=== PATIENT | female | born 1990 | race Caucasian/White ===

== ENCOUNTER 2016-09-17 20:16 | Emergency (ER) | payer OTHER ==
[~2016-09-17] VITALS: Ht 170.2 cm; Wt 69.8 kg
[~2016-09-17 20:16] MED LIST: BENZ1TAB2 PO; DPPI400 PO; GABA1CAP5 PO; GDN60 PO; LAMO25TA PO; LORA-741 PO; NAPR1TAB9 PO; NRN600 PO; PRLSR20 PO; PROP20TA67 PO; TOPI100T20 PO; ZOLP5TAB PO
[2016-09-17 20:19] VITALS: Ht 170.2 cm; Wt 69.8 kg
[2016-09-17] MEDS ORDERED: SODIUM CHLORIDE 0.9% 1000ML 1,000 ML IV STA (20:45)
[2016-09-17] MEDS ORDERED: SODIUM CHLORIDE 0.9% 1000ML 1,000 ML IV ONE (20:45)
[2016-09-17] MEDS ORDERED: TOPIRAMATE 100 MG TAB PO STA (20:45)
[2016-09-17] MEDS ORDERED: ZIPRASIDONE 80 MG CAP PO STA (20:45)
--- NOTE | 2016-09-17 20:57 | EMERGENCY ROOM VISIT NOTE ---
History Report prepared by Lo: Wood Dougherty Under the Supervision of: Dr. Dwain Cline M.D. First contact with patient: 20:24 Chief Complaint: MENTAL HEALTH EVALUATION Stated Complaint: SHARP PAIN IN RT SIDE, SUICIDAL THOUGHTS History of Present Illness The patient is a 26 year old female who presents to the Emergency Room for a mental health evaluation. Per the nurse, the patient called the police to have them bring her to the hospital voluntarily. She claims that she tried to overdose 5 days ago, but was cleared at the time. Per the police that is the same police from Sunday's incident, 5 days ago the patient could not get her prescription filled at [facility] because she was too early. She was having a manic episode and did not realize she had her medications at her home. She then took a bunch of sleeping pills. She went to work and threatened to "shoot herself in the face" at work. She also said that if there were not customers there, she would shoot her employee and then shoot herself. The police was called after this and [facility] came with them. She states that she had a seizure from the pills before she went to work. Per the patient, on Sunday she took "a bunch" of two different doses of over the counter sleeping medications called "Simply Sleep." Everything that the police states lines up with her story. She adds that she vomited when she seized as well. She is also complaining of RUQ abdominal pain that is sharp that started 5 days ago. This is not the first time she tried to kill herself. For her prior attempt, she also tried to use sleeping pills. She says that she is tired and sick of life. She is also angry and depressed about everyone and everything. The patient lives alone and cries a lot when she is at home. She does not use alcohol or drugs. She has not tried to hurt herself since 5 days ago. The reason she waited this long to go to the ED is because she has had problems with [place] in the past. She does not know why she came to the hospital, but she is requesting mental assistance. She is currently feeling dizzy. She denies any other problems. There is no chance she is . She is on the Depo shot. Source of History: patient, police, nursing staff Onset: 5 days ago Position: other (global) Symptom Intensity: severe Quality: other (Mental Health Evaluation) Timing: constant Associated Symptoms: + abdominal pain Note: She denies any other symptoms. Review of Systems See HPI for pertinent positives & negatives. A total of 10 systems reviewed and were otherwise negative. Past Medical & Surgical Medical Problems: (1) Anxiety (2) Asperger's disorder (3) Bipolar disorder (4) Depression Old medical records were reviewed. Nurse's notes were reviewed and I agree with. Family History Seizures Social History Smoking Status: Never Smoker Alcohol Use: occasionally Drug Use: marijuana Marital Status: in relationship Housing Status: lives with significant other Occupation Status: unemployed Current/Historical Medications Scheduled Biotin (Biotin), 1 TAB PO QAM Gabapentin (Neurontin), 400 MG PO BID @ AM AND NOON Gabapentin (Gabapentin), 600 MG PO HS Lamotrigine (Lamictal), 100 MG PO QAM Lorazepam (Ativan), 0.5 MG PO TID @ AM, NOON, 1700 Medroxyprogesterone Acetate (Depo-Provera), 1 DOSE PO [id number] Propranolol Hcl (Propranolol Hcl), 1 TAB PO TID Topiramate (Topamax), 100 MG PO BID Ziprasidone Hcl (Geodon), 160 MG PO HS Allergies Coded Allergies: Fluoxetine (Verified Allergy, Unknown, ALLERGIC REACTION, 09/17/16) Citalopram (Verified Adverse Reaction, Unknown, UNKNOWN, 09/17/16) Physical Exam Vital Signs Date Time Temp Pulse Resp B/P Pulse Ox O2 Delivery O2 Flow Rate FiO2 09/17/16 22:07 74 18 121/74 99 Room Air 09/17/16 20:19 36.4 84 16 117/77 100 Room Air Physical Exam General: Anxious appearing young female. Well developed well nourished in no acute distress, breathing comfortably on room air. Normal speech HEENT: Normal cephalic atraumatic. Pupils are equal round and reactive to light. Sclerae anicteric. Extraocular movements are intact. Oropharynx is pink with moist mucous membranes. No swelling of the mouth lips or tongue. Neck: Supple with a midline trachea. No meningeal signs or stiffness, no JVD or bruits. No Stridor. Chest: Clear to auscultation bilaterally. No wheezes or rhonchi. No increased work of breathing. Heart: regular rate and rhythm. Abdomen: Soft nontender, nondistended without rebound guarding or rigidity. Extremities: No cyanosis clubbing or edema. No calf tenderness or assymetry Spine/Back. Non tender to palpation. No CVA tenderness Skin: Good turgor without rashes. Neurologic exam: Cranial nerves two through 12 are intact. Motor and sensation are intact and symmetrical throughout. Psych: Normal thought process, intermittently appears angry, complains of suicidal ideation. Medical Decision & Procedures Laboratory Results 09/17/16 21:00 Red Blood Count 3.84, Mean Corpuscular Volume 90.1, Mean Corpuscular Hemoglobin 31.3, Mean Corpuscular Hemoglobin Concent 34.7, Mean Platelet Volume 10.2, Neutrophils (%) (Auto) 54.6, Lymphocytes (%) (Auto) 36.7, Monocytes (%) (Auto) 4.6, Eosinophils (%) (Auto) 3.4, Basophils (%) (Auto) 0.5, Neutrophils # (Auto) 3.10, Lymphocytes # (Auto) 2.08, Monocytes # (Auto) 0.26, Eosinophils # (Auto) 0.19, Basophils # (Auto) 0.03 09/17/16 21:00 Test 09/17/16 21:00 09/17/16 21:10 White Blood Count 5.67 K/uL (4.8-10.8) Red Blood Count 3.84 M/uL (4.2-5.4) Hemoglobin 12.0 g/dL (12.0-16.0) Hematocrit 34.6 % (37-47) Mean Corpuscular Volume 90.1 fL (80-100) Mean Corpuscular Hemoglobin 31.3 pg (25-34) Mean Corpuscular Hemoglobin Concent 34.7 g/dl (32-36) Platelet Count 205 K/uL (130-400) Mean Platelet Volume 10.2 fL (7.4-10.4) Neutrophils (%) (Auto) 54.6 % Lymphocytes (%) (Auto) 36.7 % Monocytes (%) (Auto) 4.6 % Eosinophils (%) (Auto) 3.4 % Basophils (%) (Auto) 0.5 % Neutrophils # (Auto) 3.10 K/uL (1.4-6.5) Lymphocytes # (Auto) 2.08 K/uL (1.2-3.4) Monocytes # (Auto) 0.26 K/uL (0.11-0.59) Eosinophils # (Auto) 0.19 K/uL (0-0.5) Basophils # (Auto) 0.03 K/uL (0-0.2) RDW Standard Deviation 43.5 fL (36.4-46.3) RDW Coefficient of Variation 13.4 % (11.5-14.5) Immature Granulocyte % (Auto) 0.2 % Immature Granulocyte # (Auto) 0.01 K/uL (0.00-0.02) Prothrombin Time 10.7 SECONDS (9.0-12.0) Prothromb Time International Ratio 1.0 (0.9-1.1) Activated Partial Thromboplast Time 25.9 SECONDS (21.0-31.0) Partial Thromboplastin Ratio 1.0 Anion Gap 11.0 mmol/L (3-11) Est Creatinine Clear Calc Drug Dose 74.1 ml/min Estimated GFR () 79.1 Estimated GFR (Non- 68.3 BUN/Creatinine Ratio 6.9 (10-20) Calcium Level 9.2 mg/dl (8.5-10.1) Total Bilirubin 0.3 mg/dl (0.2-1) Direct Bilirubin 0.1 mg/dl (0-0.2) Aspartate Amino Transf (AST/SGOT) 49 U/L (15-37) Alanine Aminotransferase (ALT/SGPT) 56 U/L (12-78) Alkaline Phosphatase 80 U/L (45-117) Total Protein 7.0 gm/dl (6.4-8.2) Albumin 4.1 gm/dl (3.4-5.0) Lipase 112 U/L (73-393) Human Chorionic Gonadotropin, Qual NEG (NEG) Salicylates Level < 1.7 mg/dl (2.8-20) Acetaminophen Level < 2 ug/ml (10-30) Ethyl Alcohol mg/dL < 3.0 mg/dl (0-3) Urine Opiates Screen NEG (NEG) Urine Methadone, Qualitative NEG (NEG) Urine Barbiturates NEG (NEG) Urine Phencyclidine (PCP) Level NEG (NEG) Ur Amphetamine/Methamphetamine NEG (NEG) MDMA (Ecstasy) Screen NEG (NEG) Urine Benzodiazepines Screen NEG (NEG) Urine Cocaine Metabolite NEG (NEG) Urine Marijuana (THC) NEG (NEG) Laboratory studies as stated above per my review. Medications Administered Medications (Trade) Dose Ordered Sig/Janie Route Start Time Stop Time Status Last Admin Dose Admin Sodium Chloride 1,000 ml @ 999 mls/hr Q1H1M STAT IV 09/17/16 20:45 09/17/16 21:45 DC 09/17/16 21:03 999 MLS/HR Sodium Chloride (Nss 1000ml) 1,000 ml @ 150 mls/hr Q6H40M ONCE IV 09/17/16 20:45 09/18/16 03:24 09/17/16 23:03 150 MLS/HR Topiramate (Topamax Tab) 100 mg ONE STAT PO 09/17/16 20:45 09/17/16 20:50 DC 09/17/16 21:00 100 MG Ziprasidone (Geodon Cap) 160 mg ONE STAT PO 09/17/16 20:45 09/17/16 20:50 DC 09/17/16 21:02 160 MG Lorazepam (Ativan Tab) 0.5 mg NOW STAT SL 09/17/16 22:54 09/17/16 22:56 DC 09/17/16 23:00 0.5 MG ED Course 2023: Past medical records reviewed. The patient was evaluated in room A7, and a complete history and physical examination were performed. 2044: Ordered Ziprasidone 160 mg PO, Topamax Tab 100 mg PO, Sodium Chloride 1000 ml @ 150 mls/hr IV, Sodium Chloride 1000 ml @ 999 mls/hr IV. 5: I reassessed the patient at this time. She is much more calm. She is getting food. 2147: I spoke with central command about finding a bed somewhere for the patient. 0: The patient is sleeping comfortably. [facility] is about to assess her. 2250: I was notified that the patient's chest feels like it is tightening up. She is also feeling anxious. 4: Ordered Ativan Tab 0.5 mg SL 2255: I evaluated the patient and ordered her Ativan. She informed me that she normally takes 0.5 mg. 2358: I was informed that the chairman and chief executive officer filled out a 302 statement incorrectly. He made it a petition. The patient has been voluntary her entire stay. I denied the petition because she has been voluntary. [facility] is now reevaluating the patient. 0030: The patient was signed out to Dr. Walker. Medical Decision Differentials include, but are not limited to; suicidal ideation, depression, overdose, infection, electrolyte or metabolic abnormality. This patient comes in as described above. She comes in voluntarily after feeling depressed and having anger and she had suicidal ideations earlier this week. She says on Sunday she took 2 boxes of sleeping pills and may had a seizure. The pill she took was called sleep ezez and is Benadryl. She has had some mild minimal abdominal pain since then she denies taking anything since then she's had no vomiting or nausea. She has not been drinking alcohol and she does not use drugs. she's been taking her psychiatric medicine as directed she tells me. IV access established and multiple blood testing was obtained. She was reassessed frequently. She is resting comfortably and did receive her ` nighttime psych meds. She has nothing to suggest an acute toxicologic process. Her Tylenol level was 0 as well as she had normal LFTs and normal coags and she is approximately 5 days out. This point there is nothing to suggest significant Tylenol/acetaminophen toxicity. She was medically cleared and was seen by [facility]. When they came and they did evaluate her but refused to place her as they were concerned about the 302 petition. The patient came in voluntarily and the chairman and chief executive officer asked if he could write a statement in case she changed her mind. The way he filled it out it wasn't a statement but rather a warrant. In light of this, I denied the warrant as she is voluntary at this point and wants to come and voluntarily. If for some reason she decided to go home, [facility] can fill out another warrant if necessary or needed. Again the patient is voluntarily and will be further treated and evaluated by [facility] for inpatient treatment and evaluation. She'll be signed out at shift change to Dr. Singh. Impression Primary Impression: Depression Additional Impressions: Anxiety Suicidal ideation Scribe Attestation The scribe's documentation has been prepared under my direction and personally reviewed by me in its entirety. I confirm that the note above accurately reflects all work, treatment, procedures, and medical decision making performed by me. Departure Information Dispostion Still a Patient Referrals Rhianna Gonzales C.R.N.P. (PCP) Patient Instructions My [facility] Problem Qualifiers
[2016-09-17 21:21] LABS: BASO % 0.5 %; BASO ABS # 0.03 K/uL (0-0.2); COMPLETE YES; EOS % 3.4 %; HEMATOCRIT 34.6 % (37-47); IG% 0.2 %; LYMPH % 36.7 %; LYMPH ABS # 2.08 K/uL (1.2-3.4); MEAN CELL VOLUME 90.1 fL (80-100); MEAN CORPUSCULAR HEMOGLOBIN 31.3 pg (25-34); MEAN CORPUSCULAR HGB CONC 34.7 g/dl (32-36); MEAN PLATELET VOLUME 10.2 fL (7.4-10.4); MONO % 4.6 %; NEUT % 54.6 %; PLATELET COUNT 205 K/uL (130-400); RED BLOOD COUNT 3.84 M/uL (4.2-5.4); WHITE BLOOD COUNT 5.67 K/uL (4.8-10.8)
[2016-09-17] MEDS ORDERED: BIOT50006 PO (21:23)
[2016-09-17] MEDS ORDERED: GDN/80 PO (21:23)
[2016-09-17] MEDS ORDERED: LAMO100T16 PO (21:23)
[2016-09-17] MEDS ORDERED: PROP40TA5 PO (21:23)
[2016-09-17 21:30] LABS: PROTHROMBIN TIME (PATIENT) 10.7 SECONDS (9.0-12.0)
[2016-09-17 21:37] LABS: ACETAMINOPHEN < 2 ug/ml (10-30); BUN/CREATININE RATIO 6.9 (10-20); CALCIUM 9.2 mg/dl (8.5-10.1); CREATININE 1.1 mg/dl (0.60-1.20); POTASSIUM 3.7 mmol/L (3.5-5.1)
[2016-09-17 21:39] LABS: PREG INTERNAL POSITIVE QC POS CONTROL LINE
[2016-09-17 21:40] LABS: PREG INTERNAL NEGATIVE QC NEG CLEAR BACKGROUND
[2016-09-17 22:02] LABS: BENZODIAZEPINE, URINE NEG (NEG); COCAINE,URINE NEG (NEG); PHENCYCLIDINE, URINE NEG (NEG)
[2016-09-17] MEDS ORDERED: LORAZEPAM 0.5 MG TAB SL STA (22:54)
[2016-09-18] MEDS ORDERED: NURSING VERBAL MED ORDER ONE (05:00)
[2016-09-18] MEDS ORDERED: PROPRANOLOL HCL 20 MG TAB PO ONE (08:00)
[2016-09-18] MEDS ORDERED: LORAZEPAM 0.5 MG TAB PO ONE (08:00)
[2016-09-18] MEDS ORDERED: GABAPENTIN 400 MG CAP PO ONE (08:00)
[2016-09-18] MEDS ORDERED: TOPIRAMATE 100 MG TAB PO ONE (08:00)
[2016-09-18] MEDS ORDERED: AZITHROMYCIN 250 MG TAB PO STA (11:29)
[2016-09-18] MEDS ORDERED: CEFTRIAXONE SOD 350MG/ML 1 GM VIAL IM STA (11:29)
--- NOTE | 2016-09-18 11:39 | EMERGENCY ROOM VISIT NOTE ---
ED Visit Note First contact with patient: 11:37 I received this patient at change of shift signout. The patient was previously medically cleared in the emergency department. She presented to the emergency department for a mental health evaluation. The patient had a bedsore initially which was postponed overnight. The bed search has been resume this morning. [facility] is at the bedside doing a bed search at this time. Currently the patient is a 201 voluntary admission. I was asked to evaluate the patient for a rash. The patient states that she has a rash on her right vaginal area. The patient states that she has had a rash in this area before but denies that it is sexually related. The rash has grouped vesicles that have the appearance of a herpetic infection. Cultures were obtained. I offered to do a full pelvic exam on the patient's do cervical cultures as well but she refused. She was treated for STD coverage for cervicitis as well as started on antivirals for herpes. The patient was told to follow-up the culture results. The patient was accepted at [facility] for mental health inpatient treatment. Transfer paperwork was filled out by me.
[2016-09-18] MEDS ORDERED: VALA1TAB2 PO (11:41)
[2016-09-18] MEDS ORDERED: GABAPENTIN 400 MG CAP PO STA (11:49)
[2016-09-18] MEDS ORDERED: LORAZEPAM 0.5 MG TAB PO STA (11:49)
[2016-09-18] MEDS ORDERED: PROPRANOLOL HCL 10 MG TAB PO ONE (12:00)
[2016-09-18 13:43] VITALS: BP 122/66; PULSE 76; O2SAT 99
[2016-09-20 11:30] LABS: HERPES SIMPLEX CULT SOURCE GENITAL-RT VAGINAL A; HERPES SIMPLEX VIRUS CULT ISOLATED (NOT ISOLATED)
[2016-09-21 07:17] LABS: HSVTYPE2REFLEX ONLY!DON'T ORDR ISOLATED (NOT ISOLATED)
== END 2016-09-18 13:43 | disposition home or self-care (01) ==
LOC: C.EDB 20:17 → C.EDA 09-18 13:43
DX: F32.9 Major depressive disorder, single episode, unspecified (principal); F41.9 Anxiety disorder, unspecified; R45.851 Suicidal ideations; F31.9 Bipolar disorder, unspecified; R21 Rash and other nonspecific skin eruption; N72 Inflammatory disease of cervix uteri; B00.9 Herpesviral infection, unspecified; Z79.899 Other long term (current) drug therapy

== ENCOUNTER 2016-09-27 13:17 | Emergency (ER) | payer OTHER ==
[~2016-09-27] VITALS: Ht 170.2 cm; Wt 70.0 kg
[~2016-09-27 13:17] MED LIST changes: -BENZ1TAB2 PO; +BIOT50006 PO; +GDN/80 PO; -GDN60 PO; +LAMO100T16 PO; -LAMO25TA PO; -NAPR1TAB9 PO; -PRLSR20 PO; -PROP20TA67 PO; +PROP40TA5 PO; +VALA1TAB2 PO; -ZOLP5TAB PO
[2016-09-27 13:21] VITALS: TEMP 36.6; Ht 170.2 cm; Wt 70.0 kg
[2016-09-27 14:49] LABS: BASO % 0.4 %; BASO ABS # 0.03 K/uL (0-0.2); COMPLETE YES; EOS % 1.9 %; HEMATOCRIT 36.6 % (37-47); IG% 0.1 %; LYMPH % 24.8 %; LYMPH ABS # 1.86 K/uL (1.2-3.4); MEAN CELL VOLUME 89.9 fL (80-100); MEAN CORPUSCULAR HEMOGLOBIN 31.4 pg (25-34); MEAN PLATELET VOLUME 9.6 fL (7.4-10.4); MONO % 4.3 %; NEUT % 68.5 %; PLATELET COUNT 253 K/uL (130-400); RED BLOOD COUNT 4.07 M/uL (4.2-5.4); WHITE BLOOD COUNT 7.49 K/uL (4.8-10.8)
[2016-09-27 15:08] LABS: BUN/CREATININE RATIO 6.7 (10-20); CALCIUM 9.4 mg/dl (8.5-10.1); CREATININE 1.2 mg/dl (0.60-1.20); POTASSIUM 3.3 mmol/L (3.5-5.1)
[2016-09-27 15:09] LABS: ACETAMINOPHEN < 2 ug/ml (10-30)
[2016-09-27 15:13] LABS: URINE APPEARANCE CLEAR (CLEAR); URINE BILIRUBIN NEG (NEG); URINE COLOR YELLOW; URINE EPITHELIAL CELL AUTO >30 /lpf (0-5); URINE NITRITE NEG (NEG); URINE PH 5.5 (4.5-7.5); URINE SPECIFIC GRAVITY 1.008 (1.000-1.030); UROBILINOGEN NEG (NEG); ZZUR CULT IF INDIC CLEAN CATCH NO
[2016-09-27 15:18] LABS: ALB/GLOB RATIO 1.3 (0.9-2); THYROID STIMULATING HORMONE 1.68 uIu/ml (0.300-4.500)
[2016-09-27 15:23] LABS: MANUAL MICROSCOPIC REQUIRED? NO; REVIEW REQ? NO
[2016-09-27] MEDS ORDERED: LURA1TAB3 PO (15:27)
[2016-09-27] MEDS ORDERED: LORA1TAB13 PO (15:27)
[2016-09-27] MEDS ORDERED: [UNRECOGNIZED DRUG - CODE] PO (15:27)
[2016-09-27] MEDS ORDERED: LAMO200T38 PO (15:27)
[2016-09-27 15:47] LABS: BENZODIAZEPINE, URINE NEG (NEG); COCAINE,URINE NEG (NEG); PHENCYCLIDINE, URINE NEG (NEG)
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
[2016-09-27] MEDS ORDERED: LORAZEPAM 1 MG TAB PO SCH (17:00)
[2016-09-27] MEDS ORDERED: PROPRANOLOL HCL 20 MG TAB PO ONE (17:00)
[2016-09-27] MEDS ORDERED: LURASIDONE HCL 40 MG TAB PO ONE (17:00)
[2016-09-27] MEDS ORDERED: GABAPENTIN 600 MG TAB PO ONE (17:00)
[2016-09-27] MEDS ORDERED: TOPIRAMATE 100 MG TAB PO STA (20:29)
[2016-09-27] MEDS ORDERED: ZIPRASIDONE 20 MG CAP PO STA (20:29)
[2016-09-27] MEDS ORDERED: ZIPRASIDONE 80 MG CAP PO STA (20:29)
[2016-09-27 21:37] VITALS: BP 107/72; PULSE 104; O2SAT 96
[2016-10-04 17:40] LABS: SYNTHETIC CANNABINOIDS QL URIN NEGATIVE (Negative)
== END 2016-09-27 21:15 ==
LOC: C.EDB 13:18 → C.EDA 21:15
DX: R45.851 Suicidal ideations (principal); F31.9 Bipolar disorder, unspecified; F41.9 Anxiety disorder, unspecified; Z82.0 Family history of epilepsy and other diseases of the nervous system; Z79.899 Other long term (current) drug therapy

== ENCOUNTER → 2017-01-19 | Outpatient (CLI) | payer OTHER ==
[~2017-01-19] MED LIST changes: -GDN/80 PO; -LAMO100T16 PO; +LAMO200T38 PO; -LORA-741 PO; +LORA1TAB13 PO; +LURA1TAB3 PO; -VALA1TAB2 PO; +[UNRECOGNIZED DRUG - CODE] PO
[2017-01-19 16:50] LABS: BASO % 0.9 %; BASO ABS # 0.04 K/uL (0-0.2); COMPLETE YES; EOS % 2.9 %; HEMATOCRIT 34.8 % (37-47); LYMPH % 36.8 %; LYMPH ABS # 1.65 K/uL (1.2-3.4); MEAN CELL VOLUME 88.5 fL (80-100); MEAN CORPUSCULAR HEMOGLOBIN 30.3 pg (25-34); MEAN CORPUSCULAR HGB CONC 34.2 g/dl (32-36); MEAN PLATELET VOLUME 10.5 fL (7.4-10.4); MONO % 7.6 %; NEUT % 51.8 %; PLATELET COUNT 191 K/uL (130-400); RED BLOOD COUNT 3.93 M/uL (4.2-5.4); WHITE BLOOD COUNT 4.48 K/uL (4.8-10.8)
[2017-01-19 17:04] LABS: ALB/GLOB RATIO 1.5 (0.9-2); ALT/SGPT 19 U/L (12-78); AST/SGOT 10 U/L (15-37); BLOOD UREA NITROGEN 13 mg/dl (7-18); BUN/CREATININE RATIO 9.6 (10-20); CALCIUM 9.2 mg/dl (8.5-10.1); CARBON DIOXIDE 22 mmol/L (21-32); CHLORIDE 112 mmol/L (98-107); GLUCOSE 61 mg/dl (70-99); POTASSIUM 3.5 mmol/L (3.5-5.1); SODIUM 144 mmol/L (136-145)
[2017-01-19 17:14] LABS: ALKALINE PHOSPHATASE 77 U/L (45-117)
[2017-01-22 15:39] LABS: HSV TYPE 1 DNA Not Detected (Not Detected); HSV TYPE 1&2 DNA SOURCE Plasma; HSV TYPE 2 DNA Not Detected (Not Detected)
== END | disposition home or self-care (01) ==
LOC: C.LABBC 13:30
PROVIDERS: ATTEND Nurse Practitioner Adult Health
DX: Z00.00 Encounter for general adult medical examination without abnormal findings (principal); Z20.2 Contact with and (suspected) exposure to infections with a predominantly sexual mode of transmission; A60.00 Herpesviral infection of urogenital system, unspecified; R45.86 Emotional lability

== ENCOUNTER → 2017-02-28 | Outpatient (CLI) | payer OTHER | END | disposition home or self-care (01) | LOC: C.PAPS 14:10 | PROVIDERS: ATTEND Obstetrics & Gynecology | DX: Z12.4 Encounter for screening for malignant neoplasm of cervix (principal); Z11.3 Encounter for screening for infections with a predominantly sexual mode of transmission ==

== ENCOUNTER → 2017-02-28 | Outpatient (CLI) | payer OTHER ==
[2017-03-03 03:02] LABS: CHLAMYDIA TRACH RNA*** NOT DETECTED (NOT DETECTED); GC (NEIS GONORRHOEAE)RNA** NOT DETECTED (NOT DETECTED)
== END | disposition home or self-care (01) ==
LOC: C.LABSPEC 14:19
PROVIDERS: ATTEND Obstetrics & Gynecology
DX: Z11.3 Encounter for screening for infections with a predominantly sexual mode of transmission (principal)

== ENCOUNTER → 2017-07-26 | Outpatient (CLI) | payer OTHER ==
[~2017-07-26] MED LIST changes: +LAMO200T35 PO; -LAMO200T38 PO
== END | disposition home or self-care (01) ==
LOC: C.LABSPEC 17:39
PROVIDERS: ATTEND Nurse Practitioner Adult Health
DX: R59.9 Enlarged lymph nodes, unspecified (principal)

== ENCOUNTER 2022-08-19 17:51 | Observation (INO) ==
--- NOTE | 2022-08-19 18:11 | Emergency Department Note ---
Impression & Plan Depression with suicidal ideation, Overdose by ingestion, Abnormal EKG, ZACK (acute kidney injury) ED Provider Note NAME: MORAIMA KELLY AGE: 32 SEX: F : 1990 ARRIVES VIA: Ambulance INFORMANT: Patient, ED PROVIDER(S): Devaughn Meeks DO CHIEF COMPLAINT: Mental health evaluation HPI: The patient is a 32-year-old female who presented to the emergency department for an evaluation of mental health issues. The patient states that she was talking to a boy that she was looking to make her significant other. She could not get a hold of the other person last evening. She became very desperate and wanted to get his attention. She admits to taking medication in an attempt to overdose to get his attention. She states that she took 30 tablets of Paxil at 8 PM last evening. She states it was 40 mg formulation. She states that she took all the tablets at 1 time. She states that she did not take any other medications with the Paxil. She states that she did not take any alcohol or Tylenol. She had multiple episodes of emesis after this but has not had an episode of emesis since last evening at around 10 PM. Her parent found out about this overdose attempt and the patient arrived via police because her family member who lived in [place] called 911. The patient states that she was only trying to get this other person's attention and denies any suicidal ideation at this time. ROS: See above HPI for pertinent positives & negatives. A total of 10 systems reviewed and were otherwise negative. PAST MEDICAL HISTORY: See Below PAST SURGICAL HISTORY: See Below FAMILY HISTORY: See Below SOCIAL HISTORY: See Below HOME MEDICATIONS: See Below ALLERGIES: See Below VITALS: See Below PHYSICAL EXAMINATION: GENERAL: Patient is awake alert in no acute distress patient is resting comfortably and showing no signs of anxiety EYES: The conjunctivae are clear. The pupils are round and reactive. EARS, NOSE, MOUTH AND THROAT: The nose is without any evidence of any deformity. Mucous membranes are moist. Tongue is midline. NECK: The neck is nontender and supple. RESPIRATORY: Normal respiratory effort is noted there is no evidence of wheezing rhonchi or rales CARDIOVASCULAR: Regular rate and rhythm noted there no murmurs rubs or gallops normal S1 normal S2. GASTROINTESTINAL: The abdomen is soft. Abdomen is nontender. MUSCULOSKELETAL/EXTREMITIES: There is no evidence of gross deformity full range of motion is noted in the hips and shoulders. SKIN: There is no obvious evidence of any rash. There are no petechiae, pallor or cyanosis noted. NEUROLOGIC: Patient is awake alert and oriented x3 strength is symmetric patellar reflexes are 2+ bilaterally PSYCH: The patient makes good eye contact most of evaluation. She is currently denying any suicidal homicidal ideation. MEDICAL DECISION MAKING: The patient is a 32-year-old female who presented to the emergency department for an evaluation of mental health issues. The patient took a significant overdose of Paxil last evening. The patient was awake and alert. It sounds though she made this gesture known to family as well as a potential significant other. For this reason 911 was called and the patient was brought to the emergency department for formal mental health evaluation. Initially the patient was agreeable to evaluation but when I discussed the patient's laboratory studies with her and recommended that she may require inpatient management medically as well as from a mental health standpoint she became very angry. She did not wish to stay in the hospital. She did not want to stay for a mental health evaluation any further. 302 petition was filled out by the mental health delegate who initially evaluated the patient. Given the current situation I feel the patient may be a significant threat to herself and I have decided to uphold the 302 petition. The patient was also found to have an acute kidney injury as well as an abnormal EKG and tachycardia while she was in the emergency department. I do not feel she would be a good candidate for mental health inpatient stay at this time because she may still require further medical clearance. For this reason I will discuss her case with the on-call [facility] hospitalist. Triage Nursing notes reviewed. Prior medical records reviewed Vital Signs: reviewed and remarkable for tachycardia and hypotension. Differential diagnosis: Overdose, toxicologic, infection, hypoglycemia, electrolyte abnormalities, cardiac sources, intracerebral event, neurologic, trauma, as well as other pathologies. ER treatment provided: See below Diagnostics interpreted by me: ECG: EKG was obtained in the emergency department. My interpretation is normal sinus rhythm at 83 bpm. There is no ectopy. Diffuse ST depression with T wave abnormalities were noted. This was compared to a tracing from July 24, 2020. The EKG changes are new compared to the previous tracing. A second EKG was obtained in the emergency department. My interpretation is normal sinus rhythm at 71 bpm. There is no ectopy. Continuation of the previously noted ST depression with T wave abnormality was appreciated in the anterior inferior and low lateral leads. Cardiac Monitoring: An order was placed for continuous cardiac monitoring. The monitor shows a rate of 104 bpm with sinus tachycardia. Laboratory studies: As stated above and show below. Imaging studies: See below. Radiographic imaging was reviewed by myself Consultation(s): I discussed this patient's condition with the Poison Control [facility]. We reviewed the patient's laboratory and EKG findings. I discussed this case with Dr. Bell who is on-call for the [facility] hospitalist group. 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 Denies family history of Ovarian cancer Prostate cancer Myocardial infarction Breast cancer Colorectal cancer Social History Smoking Status: Never smoker Second Hand Exposure: No; Hx Alcohol Use: No Hx Substance Use: No Preferred Language: Ghanaian Communication Ability: Effective Visual Impairment: No Limitations Hearing Ability: Normal Neon Electrician Required: No marital status: Single Current Living Situation: Alone current occupational status: employed current occupation: [id number] Feels Safe at Home: Yes Childhood Exposure to Second-Hand Smoke: No caffeine: Yes during the past year weight has: increased > 10 lbs Dental Care, Regularly: Yes Physical Activity Frequency: Does not Exercise Seatbelt Use: always Sunscreen Use: Yes Do you think of yourself as: straight/heterosexual Assistive Devices: None Allergies Allergies Allergy/AdvReac Type Severity Reaction Status Date / Time citalopram Allergy Severe Swollen Verified 08/19/22 20:30 tongue fluoxetine AdvReac Intermediate SEROTONIN Verified 08/19/22 20:30 SYNDROME Home Meds Home Medications Medication Instructions Recorded Confirmed chlorpromazine 25 mg tablet 25 mg PO BID 02/05/19 08/19/22 lamotrigine 100 mg tablet 200 mg PO QAM 02/13/19 08/19/22 (Lamictal) benztropine 0.5 mg tablet 0.5 mg PO BID PRN TWITCHING/JERKING 08/19/22 08/19/22 chlorpromazine 50 mg tablet 50 mg PO QID 08/19/22 08/19/22 paroxetine HCl 10 mg tablet 10 mg PO DAILY 08/19/22 08/19/22 paroxetine HCl 40 mg tablet (Paxil) 40 mg PO DAILY 08/19/22 08/19/22 topiramate 100 mg tablet 100 mg PO BID 08/19/22 08/19/22 topiramate 50 mg tablet 50 mg PO BID 08/19/22 08/19/22 Previous Rx's Medication Instructions Recorded medroxyprogesterone 150 mg/mL 150 mg IM Q3MO #1 mL 03/30/22 intramuscular suspension erenumab-aooe 140 mg/mL 140 mg subcut MONTHLY 30 days #1 mL 07/12/22 subcutaneous auto-injector (Aimovig Autoinjector) Results & Data (ED) Vital Signs Vital Signs - 24 hr 08/19/22 17:51 08/19/22 19:00 08/19/22 19:30 Temperature 37.1 C Temperature Source Oral Pulse Rate 104 H 100 H 73 Respiratory Rate 20 31 H 18 Respiratory Effort / Characteristics Non-Labored Respiratory Depth Normal Blood Pressure 100/75 Blood Pressure Mean 83 Pulse Oximetry 96 Oxygen Delivery Method Room Air Sepsis Recent Fever Within 48 Hours No Sepsis New/Unexplained Change in Mental Status N/A Sepsis Action Taken by Nursing No Action Required 08/19/22 20:11 08/19/22 20:12 08/19/22 20:12 Temperature Temperature Source Pulse Rate 94 H 84 Respiratory Rate 16 Respiratory Effort / Characteristics Respiratory Depth Blood Pressure 115/73 Blood Pressure Mean 87 Pulse Oximetry Oxygen Delivery Method Sepsis Recent Fever Within 48 Hours Sepsis New/Unexplained Change in Mental Status Sepsis Action Taken by Nursing 08/19/22 20:30 08/19/22 21:00 08/19/22 21:14 Temperature Temperature Source Pulse Rate 78 79 Respiratory Rate 15 27 H Respiratory Effort / Characteristics Respiratory Depth Blood Pressure 98/55 L Blood Pressure Mean 69 Pulse Oximetry Oxygen Delivery Method Sepsis Recent Fever Within 48 Hours Sepsis New/Unexplained Change in Mental Status Sepsis Action Taken by Nursing 08/19/22 21:14 08/19/22 21:30 08/19/22 21:30 Temperature Temperature Source Pulse Rate 75 77 Respiratory Rate 16 16 Respiratory Effort / Characteristics Respiratory Depth Blood Pressure 106/71 Blood Pressure Mean 82 Pulse Oximetry Oxygen Delivery Method Sepsis Recent Fever Within 48 Hours Sepsis New/Unexplained Change in Mental Status Sepsis Action Taken by Nursing 08/19/22 22:00 08/19/22 22:00 08/19/22 22:18 Temperature Temperature Source Pulse Rate 79 Respiratory Rate 15 Respiratory Effort / Characteristics Respiratory Depth Blood Pressure 99/72 L 103/56 L Blood Pressure Mean 81 71 Pulse Oximetry Oxygen Delivery Method Sepsis Recent Fever Within 48 Hours Sepsis New/Unexplained Change in Mental Status Sepsis Action Taken by Nursing 08/19/22 22:18 Temperature Temperature Source Pulse Rate 104 H Respiratory Rate 17 Respiratory Effort / Characteristics Respiratory Depth Blood Pressure Blood Pressure Mean Pulse Oximetry Oxygen Delivery Method Sepsis Recent Fever Within 48 Hours Sepsis New/Unexplained Change in Mental Status Sepsis Action Taken by Jail Medications Current Medication List: was personally reviewed by me Laboratory Data Attestation: I reviewed the patient's lab results. 08/19/22 18:28 08/19/22 18:28 Lab Results 08/19/22 08/19/22 08/19/22 Range/Units 18:08 18:28 18:28 WBC 8.86 (4.8-10.8) K/ul RBC 3.88 L (4.20-5.40) M/uL Hgb 12.0 (12.0-16.0) g/dl Hct 35.2 L (37.0-47.0) % MCV 90.7 (80.0-100.0) fL MCH 30.9 (25.0-34.0) pg MCHC 34.1 (32.0-36.0) g/dL RDW Std Deviation 43.0 (36.4-46.3) fL RDW Coeff of Sil 13.2 (11.5-14.5) % Plt Count 271 (130-400) K/uL MPV 10.2 (9.4-12.4) fL Immature Gran % (Auto) 0.2 % Neut % (Auto) 78.9 % Lymph % (Auto) 12.8 % [place] % (Auto) 6.2 % Eos % (Auto) 1.2 % Baso % (Auto) 0.7 % Neut # (Auto) 6.99 H (1.40-6.50) K/uL Lymph # (Auto) 1.13 L (1.2-3.4) K/uL [place] # (Auto) 0.55 (0.11-0.59) K/uL Eos # (Auto) 0.11 (0-0.50) K/uL Baso # (Auto) 0.06 (0-0.2) K/uL Immature Gran # (Auto) 0.02 (0.01-0.20) K/uL D-Dimer (0-500) ug/L FEU VBG pH (7.36-7.41) VBG pCO2 (38-50) mmHg VBG pO2 mmHg VBG HCO3 mmol/L VBG O2 Saturation % VBG Base Excess mEq/L Sodium 138 (136-145) mmol/L Potassium 3.7 (3.5-5.1) mmol/L Chloride 109 H (98-107) mmol/L Carbon Dioxide 16 L (21-32) mmol/L Anion Gap 13 H (3-11) BUN 9 (6-23) mg/dl Creatinine 1.69 H (0.6-1.2) mg/dl Est Cr Clr Drug Dosing Not Reportable Est GFR ( Amer) 45.1 ml/min Est GFR (Non-Af Amer) 38.9 ml/min BUN/Creatinine Ratio 5.3 L (10-20) Glucose 83 (70-99(Fasting)) mg/dl Calcium 9.9 (8.5-10.1) mg/dl Magnesium 1.8 (1.7-2.4) mg/dl Total Bilirubin 0.5 (0.2-1.0) mg/dl AST 18 (13-39) U/L ALT 17 (7-52) U/L Alkaline Phosphatase 104 (34-104) U/L Troponin I High Sens 3.6 (0-14) pg/ml Total Protein 8.0 (6.0-8.3) gm/dl Albumin 5.0 (3.4-5.0) gm/dl Globulin 3.0 (2.5-4.0) gm/dl Albumin/Globulin Ratio 1.7 (0.9-2) TSH (0.300-4.500) uIu/ml HCG, Qual (Negative) Urine Color Urine Appearance (Clear) Urine pH (4.5-7.5) Ur Specific [place] (1.000-1.030) Urine Protein (Negative) Urine Glucose (UA) (Negative) Urine Ketones (Negative) Urine Blood (Negative) Urine Nitrite (Negative) Urine Bilirubin (Negative) Urine Urobilinogen (Negative) Ur Leukocyte Esterase (Negative) Urine WBC (Auto) (0-5) /hpf Urine RBC (Auto) (0-4) /hpf U Hyaline Cast (Auto) (0-5) /lpf U Epithel Cells (Auto) (0-5) /lpf Urine Bacteria (Auto) (Negative) Salicylates (3.0-30) mg/dl Urine Opiates Screen (Neg) Ur Methadone, Qual (Neg) Acetaminophen (10-30) ug/ml Urine Barbiturates (Neg) Ur Phencyclidine (PCP) (Neg) U Amphetamin/Meth Scrn (Neg) MDMA (Ecstasy) Screen (Neg) U Benzodiazepines Scrn (Neg) Smoot (0.6-1.2) mmol/L Ur Cocaine Metabolite (Neg) U Marijuana (THC) Screen (Neg) Ethyl Alcohol mg/dL (<10.0) mg/dl SARS-CoV-2, RNA, NAAT NEGATIVE (NEGATIVE) 08/19/22 08/19/22 08/19/22 Range/Units 18:28 18:28 18:28 WBC (4.8-10.8) K/ul RBC (4.20-5.40) M/uL Hgb (12.0-16.0) g/dl Hct (37.0-47.0) % MCV (80.0-100.0) fL MCH (25.0-34.0) pg MCHC (32.0-36.0) g/dL RDW Std Deviation (36.4-46.3) fL RDW Coeff of Sil (11.5-14.5) % Plt Count (130-400) K/uL MPV (9.4-12.4) fL Immature Gran % (Auto) % Neut % (Auto) % Lymph % (Auto) % [place] % (Auto) % Eos % (Auto) % Baso % (Auto) % Neut # (Auto) (1.40-6.50) K/uL Lymph # (Auto) (1.2-3.4) K/uL [place] # (Auto) (0.11-0.59) K/uL Eos # (Auto) (0-0.50) K/uL Baso # (Auto) (0-0.2) K/uL Immature Gran # (Auto) (0.01-0.20) K/uL D-Dimer (0-500) ug/L FEU VBG pH (7.36-7.41) VBG pCO2 (38-50) mmHg VBG pO2 mmHg VBG HCO3 mmol/L VBG O2 Saturation % VBG Base Excess mEq/L Sodium (136-145) mmol/L Potassium (3.5-5.1) mmol/L Chloride (98-107) mmol/L Carbon Dioxide (21-32) mmol/L Anion Gap (3-11) BUN (6-23) mg/dl Creatinine (0.6-1.2) mg/dl Est Cr Clr Drug Dosing Est GFR ( Amer) ml/min Est GFR (Non-Af Amer) ml/min BUN/Creatinine Ratio (10-20) Glucose (70-99(Fasting)) mg/dl Calcium (8.5-10.1) mg/dl Magnesium (1.7-2.4) mg/dl Total Bilirubin (0.2-1.0) mg/dl AST (13-39) U/L ALT (7-52) U/L Alkaline Phosphatase (34-104) U/L Troponin I High Sens (0-14) pg/ml Total Protein (6.0-8.3) gm/dl Albumin (3.4-5.0) gm/dl Globulin (2.5-4.0) gm/dl Albumin/Globulin Ratio (0.9-2) TSH 3.427 (0.300-4.500) uIu/ml HCG, Qual (Negative) Urine Color Urine Appearance (Clear) Urine pH (4.5-7.5) Ur Specific [place] (1.000-1.030) Urine Protein (Negative) Urine Glucose (UA) (Negative) Urine Ketones (Negative) Urine Blood (Negative) Urine Nitrite (Negative) Urine Bilirubin (Negative) Urine Urobilinogen (Negative) Ur Leukocyte Esterase (Negative) Urine WBC (Auto) (0-5) /hpf Urine RBC (Auto) (0-4) /hpf U Hyaline Cast (Auto) (0-5) /lpf U Epithel Cells (Auto) (0-5) /lpf Urine Bacteria (Auto) (Negative) Salicylates < 3.0 L (3.0-30) mg/dl Urine Opiates Screen (Neg) Ur Methadone, Qual (Neg) Acetaminophen < 3 L (10-30) ug/ml Urine Barbiturates (Neg) Ur Phencyclidine (PCP) (Neg) U Amphetamin/Meth Scrn (Neg) MDMA (Ecstasy) Screen (Neg) U Benzodiazepines Scrn (Neg) Smoot < 0.1 L (0.6-1.2) mmol/L Ur Cocaine Metabolite (Neg) U Marijuana (THC) Screen (Neg) Ethyl Alcohol mg/dL < 10.0 (<10.0) mg/dl SARS-CoV-2, RNA, NAAT (NEGATIVE) 08/19/22 08/19/22 08/19/22 Range/Units 18:28 19:17 19:55 WBC (4.8-10.8) K/ul RBC (4.20-5.40) M/uL Hgb (12.0-16.0) g/dl Hct (37.0-47.0) % MCV (80.0-100.0) fL MCH (25.0-34.0) pg MCHC (32.0-36.0) g/dL RDW Std Deviation (36.4-46.3) fL RDW Coeff of Sil (11.5-14.5) % Plt Count (130-400) K/uL MPV (9.4-12.4) fL Immature Gran % (Auto) % Neut % (Auto) % Lymph % (Auto) % [place] % (Auto) % Eos % (Auto) % Baso % (Auto) % Neut # (Auto) (1.40-6.50) K/uL Lymph # (Auto) (1.2-3.4) K/uL [place] # (Auto) (0.11-0.59) K/uL Eos # (Auto) (0-0.50) K/uL Baso # (Auto) (0-0.2) K/uL Immature Gran # (Auto) (0.01-0.20) K/uL D-Dimer 240 (0-500) ug/L FEU VBG pH 7.33 L (7.36-7.41) VBG pCO2 34 L (38-50) mmHg VBG pO2 30 mmHg VBG HCO3 18 mmol/L VBG O2 Saturation < 60.0 % VBG Base Excess -7.1 mEq/L Sodium (136-145) mmol/L Potassium (3.5-5.1) mmol/L Chloride (98-107) mmol/L Carbon Dioxide (21-32) mmol/L Anion Gap (3-11) BUN (6-23) mg/dl Creatinine (0.6-1.2) mg/dl Est Cr Clr Drug Dosing Est GFR ( Amer) ml/min Est GFR (Non-Af Amer) ml/min BUN/Creatinine Ratio (10-20) Glucose (70-99(Fasting)) mg/dl Calcium (8.5-10.1) mg/dl Magnesium (1.7-2.4) mg/dl Total Bilirubin (0.2-1.0) mg/dl AST (13-39) U/L ALT (7-52) U/L Alkaline Phosphatase (34-104) U/L Troponin I High Sens (0-14) pg/ml Total Protein (6.0-8.3) gm/dl Albumin (3.4-5.0) gm/dl Globulin (2.5-4.0) gm/dl Albumin/Globulin Ratio (0.9-2) TSH (0.300-4.500) uIu/ml HCG, Qual Negative (Negative) Urine Color Urine Appearance (Clear) Urine pH (4.5-7.5) Ur Specific [place] (1.000-1.030) Urine Protein (Negative) Urine Glucose (UA) (Negative) Urine Ketones (Negative) Urine Blood (Negative) Urine Nitrite (Negative) Urine Bilirubin (Negative) Urine Urobilinogen (Negative) Ur Leukocyte Esterase (Negative) Urine WBC (Auto) (0-5) /hpf Urine RBC (Auto) (0-4) /hpf U Hyaline Cast (Auto) (0-5) /lpf U Epithel Cells (Auto) (0-5) /lpf Urine Bacteria (Auto) (Negative) Salicylates (3.0-30) mg/dl Urine Opiates Screen (Neg) Ur Methadone, Qual (Neg) Acetaminophen (10-30) ug/ml Urine Barbiturates (Neg) Ur Phencyclidine (PCP) (Neg) U Amphetamin/Meth Scrn (Neg) MDMA (Ecstasy) Screen (Neg) U Benzodiazepines Scrn (Neg) Smoot (0.6-1.2) mmol/L Ur Cocaine Metabolite (Neg) U Marijuana (THC) Screen (Neg) Ethyl Alcohol mg/dL (<10.0) mg/dl SARS-CoV-2, RNA, NAAT (NEGATIVE) 08/19/22 08/19/22 Range/Units 20:00 20:00 WBC (4.8-10.8) K/ul RBC (4.20-5.40) M/uL Hgb (12.0-16.0) g/dl Hct (37.0-47.0) % MCV (80.0-100.0) fL MCH (25.0-34.0) pg MCHC (32.0-36.0) g/dL RDW Std Deviation (36.4-46.3) fL RDW Coeff of Sil (11.5-14.5) % Plt Count (130-400) K/uL MPV (9.4-12.4) fL Immature Gran % (Auto) % Neut % (Auto) % Lymph % (Auto) % [place] % (Auto) % Eos % (Auto) % Baso % (Auto) % Neut # (Auto) (1.40-6.50) K/uL Lymph # (Auto) (1.2-3.4) K/uL [place] # (Auto) (0.11-0.59) K/uL Eos # (Auto) (0-0.50) K/uL Baso # (Auto) (0-0.2) K/uL Immature Gran # (Auto) (0.01-0.20) K/uL D-Dimer (0-500) ug/L FEU VBG pH (7.36-7.41) VBG pCO2 (38-50) mmHg VBG pO2 mmHg VBG HCO3 mmol/L VBG O2 Saturation % VBG Base Excess mEq/L Sodium (136-145) mmol/L Potassium (3.5-5.1) mmol/L Chloride (98-107) mmol/L Carbon Dioxide (21-32) mmol/L Anion Gap (3-11) BUN (6-23) mg/dl Creatinine (0.6-1.2) mg/dl Est Cr Clr Drug Dosing Est GFR ( Amer) ml/min Est GFR (Non-Af Amer) ml/min BUN/Creatinine Ratio (10-20) Glucose (70-99(Fasting)) mg/dl Calcium (8.5-10.1) mg/dl Magnesium (1.7-2.4) mg/dl Total Bilirubin (0.2-1.0) mg/dl AST (13-39) U/L ALT (7-52) U/L Alkaline Phosphatase (34-104) U/L Troponin I High Sens (0-14) pg/ml Total Protein (6.0-8.3) gm/dl Albumin (3.4-5.0) gm/dl Globulin (2.5-4.0) gm/dl Albumin/Globulin Ratio (0.9-2) TSH (0.300-4.500) uIu/ml HCG, Qual (Negative) Urine Color Yellow Urine Appearance Clear (Clear) Urine pH 7.0 (4.5-7.5) Ur Specific [place] 1.004 (1.000-1.030) Urine Protein Negative (Negative) Urine Glucose (UA) Negative (Negative) Urine Ketones Negative (Negative) Urine Blood Negative (Negative) Urine Nitrite Negative (Negative) Urine Bilirubin Negative (Negative) Urine Urobilinogen Negative (Negative) Ur Leukocyte Esterase 2+ H (Negative) Urine WBC (Auto) 10-30 H (0-5) /hpf Urine RBC (Auto) 0-4 (0-4) /hpf U Hyaline Cast (Auto) 1-5 (0-5) /lpf U Epithel Cells (Auto) >30 H (0-5) /lpf Urine Bacteria (Auto) 1+ H (Negative) Salicylates (3.0-30) mg/dl Urine Opiates Screen Neg (Neg) Ur Methadone, Qual Neg (Neg) Acetaminophen (10-30) ug/ml Urine Barbiturates Neg (Neg) Ur Phencyclidine (PCP) Neg (Neg) U Amphetamin/Meth Scrn Neg (Neg) MDMA (Ecstasy) Screen Neg (Neg) U Benzodiazepines Scrn Neg (Neg) Smoot (0.6-1.2) mmol/L Ur Cocaine Metabolite Neg (Neg) U Marijuana (THC) Screen Neg (Neg) Ethyl Alcohol mg/dL (<10.0) mg/dl SARS-CoV-2, RNA, NAAT (NEGATIVE) Administered Medications Discontinued Medications Sodium Chloride (Nss 1000ml) 1,000 mls @ 999 mls/hr IV .[id number] ONE Stop: 08/19/22 20:21 Last Infusion: 08/19/22 22:35 Dose: 0 mls/hr Documented By: Admin: 08/19/22 20:20 Dose: 999 mls/hr Documented By: CORTEZ Discharge Plan Visit Data Chief Complaint: Mental Health Evaluation ED Provider: Devaughn Meeks Discharge Problem: Depression with suicidal ideation, Overdose by ingestion, Abnormal EKG, ZACK (acute kidney injury) Patient Disposition: Being Evaluated by Hospitalist Forms Stand Alone Forms: My [facility], Suicide Prevention Resources Prescriptions Prescriptions: No Action Aimovig Autoinjector 140 mg/mL auto-injector 140 mg SQ MONTHLY 30 Days Qty: 1 11RF Rx Instructions: PER PT "TAKES THE BEGINNING OF THE MONTH". chlorpromazine 25 mg tablet 25 mg PO BID lamotrigine [Lamictal] 100 mg tablet 200 mg PO QAM Rx Instructions: TOTAL DOSE 250 MG--TAKES WITH 50 MT TAB. medroxyprogesterone 150 mg/mL suspension 150 mg IM Q3MO Qty: 1 3RF Rx Instructions: PER PT "HAD IN JULY 2022". paroxetine HCl 10 mg tablet 10 mg PO DAILY Rx Instructions: TOTAL DOSE 50 MG--TAKES WITH 40 MG TAB" PER RX BOTTLE benztropine 0.5 mg tablet 0.5 mg PO BID PRN (Reason: TWITCHING/JERKING) paroxetine HCl [Paxil] 40 mg Tablet 40 mg PO DAILY Rx Instructions: TOTAL DOSE 50 MG--TAKES WITH 10 MG PER RX BOTTLE". topiramate 100 mg tablet 100 mg PO BID Rx Instructions: TOTAL DOSE 150 MG--TAKES WITH 50 MG TAB. chlorpromazine 50 mg tablet 50 mg PO QID topiramate 50 mg tablet 50 mg PO BID Rx Instructions: TOTAL DOSE 150 MG--TAKES WITH 100 MG TAB. Referrals Referrals: Susie Mora MD [Primary Care Provider] -
[2022-08-19 18:58] LABS: Basophils # (auto) 0.06 K/uL (0-0.2); Basophils % (auto) 0.7 %; Eosinophils # (auto) 0.11 K/uL (0-0.50); Eosinophils % (auto) 1.2 %; Hematocrit (blood only) 35.2 % (37.0-47.0); Immature Granulocytes # (auto) 0.02 K/uL (0.01-0.20); Immature Granulocytes % (auto) 0.2 %; Lymphocytes # (auto) 1.13 K/uL (1.2-3.4); Lymphocytes % (auto) 12.8 %; Mean Corpuscular Hemoglobin 30.9 pg (25.0-34.0); Mean Corpuscular Hgb Conc 34.1 g/dL (32.0-36.0); Mean Corpuscular Volume 90.7 fL (80.0-100.0); Mean Platelet Volume 10.2 fL (9.4-12.4); Monocytes # (auto) 0.55 K/uL (0.11-0.59); Monocytes % (auto) 6.2 %; Neutrophils # (auto) 6.99 K/uL (1.40-6.50); Neutrophils % (auto) 78.9 %; Platelet Count 271 K/uL (130-400); RDW Coefficient of Variation 13.2 % (11.5-14.5); Red Blood Count 3.88 M/uL (4.20-5.40); White Blood Count 8.86 K/ul (4.8-10.8)
[2022-08-19 19:14] LABS: Alanine Aminotransferase 17 U/L (7-52); Bilirubin,Total 0.5 mg/dl (0.2-1.0); Blood Urea Nitrogen 9 mg/dl (6-23); Chloride 109 mmol/L (98-107); Glucose 83 mg/dl (70-99(Fasting)); Potassium 3.7 mmol/L (3.5-5.1); Pregnancy Test, Serum Negative (Negative); Sodium 138 mmol/L (136-145)
[2022-08-19] MEDS ORDERED: SODIUM CHLORIDE 0.9% 1000ML 1,000 ML IV ONE (19:21)
[2022-08-19 19:24] LABS: Acetaminophen < 3 ug/ml (10-30); Lithium < 0.1 mmol/L (0.6-1.2); Salicylate < 3.0 mg/dl (3.0-30)
[2022-08-19 19:31] LABS: Albumin Globulin Ratio 1.7 (0.9-2); Alkaline Phosphatase 104 U/L (34-104); Anion Gap 13 (3-11); Aspartate Aminotransferase 18 U/L (13-39); BUN Creatinine Ratio 5.3 (10-20); Calcium 9.9 mg/dl (8.5-10.1); Carbon Dioxide 16 mmol/L (21-32); Est GFR (African American) 45.1 ml/min; Est GFR (Non-African American) 38.9 ml/min; Magnesium 1.8 mg/dl (1.7-2.4)
[2022-08-19 19:37] LABS: Troponin I High Sensitivity 3.6 pg/ml (0-14)
[2022-08-19 20:03] LABS: Base Excess VBG -7.1 mEq/L; HCO3 VBG 18 mmol/L; Oxygen Saturation VBG < 60.0 %; PCO2 VBG 34 mmHg (38-50); PO2 VBG 30 mmHg; pH VBG 7.33 (7.36-7.41)
[2022-08-19 20:10] LABS: D Dimer 240 ug/L FEU (0-500)
[2022-08-19 20:42] LABS: Appearance Urine Clear (Clear); Bacteria Urine Automated 1+ (Negative); Bilirubin Urine Negative (Negative); Blood Urine Negative (Negative); Color Urine Yellow; Epithelial Cell Urine Auto >30 /lpf (0-5); Glucose Urine UA Negative (Negative); Ketones Urine Negative (Negative); Leukocyte Esterase Urine 2+ (Negative); Nitrite Urine Negative (Negative); Protein Urine Negative (Negative); RBC Urine Automated 0-4 /hpf (0-4); Specific Gravity Urine 1.004 (1.000-1.030); Urobilinogen Urine Negative (Negative)
[2022-08-19 21:01] LABS: Amphetamines+Metham, Urine Neg (Neg); Barbiturates, Urine Neg (Neg); Benzodiazepine, Urine Neg (Neg); Cocaine, Urine Neg (Neg); MDMA (Ecstacy), Urine Neg (Neg); Methadone, Urine Neg (Neg); Opiate, Urine Neg (Neg); Phencyclidine, Urine Neg (Neg)
--- NOTE | 2022-08-19 23:30 | History & Physical Report ---
Date of Service August 19, 2022 Assessment & Plan (1) Overdose by ingestion: Plan: 32yo female with history of Bipolar disorder, anxiety presenting to [facility] following intentional overdose of Paxil. Patient took 1200mg of paxil in a single ingestion around 20:00 on 08/18/22. She reports having generalized weakness. Reports that her actions were to get someone's attention rather than a true suicide attempt. EKG changes noted although not typical findings in SSRI overdose. Normal intervals. Case discussed with Poison control - overnight admission recommended to monitor EKG. Patient did want to leave the ER. [address] -Admit to medical with telemetry -Maintin 1:1 observation, suicide precautions for now -Psychiatry consultation appreciated (2) Abnormal EKG: Plan: Patient denies chest pain. EKG with TWI present in anterior-lateral leads. Troponin WNL. Normal electroltyes -Telemetry monitoring -Repeat EKG in AM (3) Bipolar 1 disorder: Plan: Chronic. Patient reports well controlled. Patient describes visual hallucinations this morning prior to arrival - people in her home, going through her things. She does recall having hallucinations in the past before after taking Ambien, otherwise denies visual or auditory hallucinations. -Hold home medications for now -Psychiatry consultation appreciated. (4) Tinea corporis: Plan: Small area on left abdomen - ring lesion, erythematous, slightly raised and flaking. Resembles tinea corporis -Clotrimazole 1% BID History of Present Illness Chief Complaint: Paxil overdose Primary Care Provider: Susie Mora MD Patricia Cueva is a 32yo female with history of BiPolar I, Anxiety presenting with Paxil overdose. Patient reports that she met a man last week and got "obsessed with him". She was upset that he wasn't paying attention to her so she called him last night and informed him that she was going to overdose on pills and that she wanted to . She then took 30 tablets of Paxil (40 mg each) for total 1200mg Paxil. Patient then vomited several times and thinks that she must have vomited up at least some of the pills but did not specifically note pills in the vomitus. She then went to sleep and states that she felt fine. She denies taking other agents or alcohol co-ingestion. This morning when she woke up she felt "terrible". She was shaking and unable to walk due to bilateral leg weakness. She had visual hallucinations of people in her home, going through her drawers and her hamper and climbing into bed with her. She also reports having multiple seizures. Patient reports that she did not want to and states that taking the pills was simply to get the man's attention. She said that after she took the pills she was praying that she didn't . 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 She did have a suicide attempt approximately 4 years ago during which she took 20 Klonopin tablets. She follows with Psychiatry and states that her moods and mental health have been stable and well controlled overall. Additional medical complaints include pain in her left thumb caused by a fall and a small spot of ring worm on her left abdomen. Otherwise she denies chest pain, cough, SOB, abdominal pain, nausea, vomiting, diarrhea. She reports having difficulty passing urine at times as well as constipation. Allergies Allergy/AdvReac Type Severity Reaction Status Date / Time citalopram Allergy Severe Swollen Verified 08/19/22 20:30 tongue fluoxetine AdvReac Intermediate SEROTONIN Verified 08/19/22 20:30 SYNDROME Home Medications Medication Instructions Recorded Confirmed Type chlorpromazine 25 mg tablet 25 mg PO BID 02/05/19 08/19/22 History lamotrigine 100 mg tablet 200 mg PO QAM 02/13/19 08/19/22 History (Lamictal) medroxyprogesterone 150 mg/mL 150 mg IM Q3MO #1 mL 03/30/22 08/19/22 Rx intramuscular suspension erenumab-aooe 140 mg/mL 140 mg subcut MONTHLY 30 days #1 mL 07/12/22 08/19/22 Rx subcutaneous auto-injector (Aimovig Autoinjector) benztropine 0.5 mg tablet 0.5 mg PO BID PRN TWITCHING/JERKING 08/19/22 08/19/22 History chlorpromazine 50 mg tablet 50 mg PO QID 08/19/22 08/19/22 History paroxetine HCl 10 mg tablet 10 mg PO DAILY 08/19/22 08/19/22 History paroxetine HCl 40 mg tablet (Paxil) 40 mg PO DAILY 08/19/22 08/19/22 History topiramate 100 mg tablet 100 mg PO BID 08/19/22 08/19/22 History topiramate 50 mg tablet 50 mg PO BID 08/19/22 08/19/22 History Past Med/Surg History Medical History Acute psychosis Bipolar 1 disorder Extrapyramidal symptom Fracture of radius Hepatitis High risk HPV infection 11/25/14 History of herpes genitalis History of hypokalemia History of hypothyroidism History of molluscum contagiosum History of pericarditis History of rhabdomyolysis History of sinus tachycardia History of suicidal ideation Hx of drug overdose Intentional Benzodiazepine [place] toxicity correction prescription benzodiazepine use 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 Denies family history of Ovarian cancer Prostate cancer Myocardial infarction Breast cancer Colorectal cancer Social History Smoking Status: Never smoker Second Hand Exposure: No; Hx Alcohol Use: No Hx Substance Use: No Preferred Language: Panamanian Communication Ability: Effective Visual Impairment: No Limitations Hearing Ability: Normal Codifier Required: No marital status: Single Current Living Situation: Alone current occupational status: employed current occupation: [employer] Feels Safe at Home: Yes Childhood Exposure to Second-Hand Smoke: No caffeine: Yes during the past year weight has: increased > 10 lbs Dental Care, Regularly: Yes Physical Activity Frequency: Does not Exercise Seatbelt Use: always Sunscreen Use: Yes Do you think of yourself as: straight/heterosexual Assistive Devices: None Physical Exam Physical Exam: General: patient resting comfortably, NAD, non-toxic in appearance, AA&O x 4 Skin: warm, dry, intact, no rashes or lesions HEENT: NC/AT, PERRL, EOMI, anicteric sclera, conjunctiva without injection, external ear normal to inspection and nontender, nares patent, dry mucus membranes, dentition intact, no oropharyngeal lesions, neck supple, trachea midline, no LAD, no thyromegaly, no JVD Heart: +S1/S2, regular, tachycardic, no m/r/g Lungs: equal air entry bilaterally, no rales/rhonchi/wheezes Abd: +BS, soft, NT/ND, no masses/organomegaly/ascites Ext: warm, 2+ pulses in UE/LE bilaterally, no clubbing/cyanosis or edema Neuro: nonfocal, patient AA&O x 4, speech intact, no facial droop, moving all extremities on command with equal strength 5/5 Results & Data Results & Data ([facility]) Vital Signs (Past 12 Hours) Vital Signs Temp Pulse Pulse Resp BP BP Pulse Ox 08/19/22 23:03 92 H 20 113/73 97 08/19/22 22:18 104 H 17 08/19/22 22:18 103/56 L 08/19/22 22:00 79 15 08/19/22 22:00 99/72 L 08/19/22 21:30 77 16 08/19/22 21:30 106/71 08/19/22 21:14 75 16 08/19/22 21:14 98/55 L 08/19/22 21:00 79 27 H 08/19/22 20:30 78 15 08/19/22 20:12 115/73 08/19/22 20:12 84 16 08/19/22 20:11 94 H 08/19/22 19:30 73 18 08/19/22 19:00 100 H 31 H 08/19/22 17:51 37.1 C 104 H 20 100/75 96 O2 Del Method 08/19/22 23:03 Room Air 08/19/22 22:18 08/19/22 22:18 08/19/22 22:00 08/19/22 22:00 08/19/22 21:30 08/19/22 21:30 08/19/22 21:14 08/19/22 21:14 08/19/22 21:00 08/19/22 20:30 08/19/22 20:12 08/19/22 20:12 08/19/22 20:11 08/19/22 19:30 08/19/22 19:00 08/19/22 17:51 Room Air Laboratory Results Laboratory Results WBC 8.86 K/ul (4.8-10.8) 08/19/22 18: RBC 3.88 M/uL (4.20-5.40) L 08/19/22 18: Hgb 12.0 g/dl (12.0-16.0) 08/19/22 18: Hct 35.2 % (37.0-47.0) L 08/19/22 18: MCV 90.7 fL (80.0-100.0) 08/19/22 18: MCH 30.9 pg (25.0-34.0) 08/19/22 18: MCHC 34.1 g/dL (32.0-36.0) 08/19/22 18: RDW Std Deviation 43.0 fL (36.4-46.3) 08/19/22 18: RDW Coeff of Sil 13.2 % (11.5-14.5) 08/19/22: Plt Count 271 K/uL (130-400) 08/19/22 18: MPV 10.2 fL (9.4-12.4) 08/19/22 18: Immature Gran % (Auto) 0.2 % 08/19/22 18: Neut % (Auto) 78.9 % 08/19/22 18: Lymph % (Auto) 12.8 % 08/19/22 18: [place] % (Auto) 6.2 % 08/19/22 18: Eos % (Auto) 1.2 % 08/19/22 18: Baso % (Auto) 0.7 % 08/19/22 18: Neut # (Auto) 6.99 K/uL (1.40-6.50) H 08/19/22 18: Lymph # (Auto) 1.13 K/uL (1.2-3.4) L 08/19/22 18: [place] # (Auto) 0.55 K/uL (0.11-0.59) 08/19/22 18:28 Eos # (Auto) 0.11 K/uL (0-0.50) 08/19/22 18:28 Baso # (Auto) 0.06 K/uL (0-0.2) 08/19/22 18:28 Immature Gran # (Auto) 0.02 K/uL (0.01-0.20) 08/19/22 18:28 D-Dimer 240 ug/L FEU (0-500) 08/19/22 19:17 VBG pH 7.33 (7.36-7.41) L 08/19/22 19:55 VBG pCO2 34 mmHg (38-50) L 08/19/22 19:55 VBG pO2 30 mmHg 08/19/22 19:55 VBG HCO3 18 mmol/L 08/19/22 19:55 VBG O2 Saturation < 60.0 % 08/19/22 19:55 VBG Base Excess -7.1 mEq/L 08/19/22 19: Sodium 138 mmol/L (136-145) 08/19/22 18:28 Potassium 3.7 mmol/L (3.5-5.1) 08/19/22 18:28 Chloride 109 mmol/L (98-107) H 08/19/22 18:28 Carbon Dioxide 16 mmol/L (21-32) L 08/19/22 18:28 Anion Gap 13 (3-11) H 08/19/22 18:28 BUN 9 mg/dl (6-23) 08/19/22 18:28 Creatinine 1.69 mg/dl (0.6-1.2) H 08/19/22 18:28 Est Cr Clr Drug Dosing Not Reportable 08/19/22 18:28 Est GFR ( Amer) 45.1 ml/min 08/19/22 18:28 Est GFR (Non-Af Amer) 38.9 ml/min 08/19/22 18:28 BUN/Creatinine Ratio 5.3 (10-20) L 08/19/22 18:28 Glucose 83 mg/dl (70-99(Fasting)) 08/19/22 18:28 Calcium 9.9 mg/dl (8.5-10.1) 08/19/22 18:28 Magnesium 1.8 mg/dl (1.7-2.4) 08/19/22 18: Total Bilirubin 0.5 mg/dl (0.2-1.0) 08/19/22 18: AST 18 U/L (13-39) 08/19/22 18: ALT 17 U/L (7-52) 08/19/22 18: Alkaline Phosphatase 104 U/L (34-104) 08/19/22 18: Troponin I High Sens 3.6 pg/ml (0-14) 08/19/22 18: Total Protein 8.0 gm/dl (6.0-8.3) 08/19/22 18: Albumin 5.0 gm/dl (3.4-5.0) 08/19/22 18: Globulin 3.0 gm/dl (2.5-4.0) 08/19/22 18 Albumin/Globulin Ratio 1.7 (0.9-2) 08/19/22 18: TSH 3.427 uIu/ml (0.300-4.500) 08/19/22 18: HCG, Qual Negative (Negative) 08/19/22 18: Urine Color Yellow 08/19/22 20:00 Urine Appearance Clear (Clear) 08/19/22 20:00 Urine pH 7.0 (4.5-7.5) 08/19/22 20:00 Ur Specific [place] 1.004 (1.000-1.030) 08/19/22 20:00 Urine Protein Negative (Negative) 08/19/22 20:00 Urine Glucose (UA) Negative (Negative) 08/19/22 20:00 Urine Ketones Negative (Negative) 08/19/22 20:00 Urine Blood Negative (Negative) 08/19/22 20:00 Urine Nitrite Negative (Negative) 08/19/22 20:00 Urine Bilirubin Negative (Negative) 08/19/22 20:00 Urine Urobilinogen Negative (Negative) 08/19/22 20:00 Ur Leukocyte Esterase 2+ (Negative) H 08/19/22 20:00 Urine WBC (Auto) 10-30 /hpf (0-5) H 08/19/22 20:00 Urine RBC (Auto) 0-4 /hpf (0-4) 08/19/22 20:00 U Hyaline Cast (Auto) 1-5 /lpf (0-5) 08/19/22 20:00 U Epithel Cells (Auto) >30 /lpf (0-5) H 08/19/22 20:00 Urine Bacteria (Auto) 1+ (Negative) H 08/19/22 20:00 Salicylates < 3.0 mg/dl (3.0-30) L 08/19/22 18:28 Urine Opiates Screen Neg (Neg) 08/19/22 20:00 Ur Methadone, Qual Neg (Neg) 08/19/22 20:00 Acetaminophen < 3 ug/ml (10-30) L 08/19/22 18:28 Urine Barbiturates Neg (Neg) 08/19/22 20:00 Ur Phencyclidine (PCP) Neg (Neg) 08/19/22 20:00 U Amphetamin/Meth Scrn Neg (Neg) 08/19/22 20:00 MDMA (Ecstasy) Screen Neg (Neg) 08/19/22 20:00 U Benzodiazepines Scrn Neg (Neg) 08/19/22 20:00 [place] < 0.1 mmol/L (0.6-1.2) L 08/19/22 18:28 Ur Cocaine Metabolite Neg (Neg) 08/19/22 20:00 U Marijuana (THC) Screen Neg (Neg) 08/19/22 20:00 Ethyl Alcohol mg/dL < 10.0 mg/dl (<10.0) 08/19/22 18:28 SARS-CoV-2, RNA, NAAT NEGATIVE (NEGATIVE) 08/19/22 18:08 ECG Additional Comments: EKG shows NSR at 83, normal axis, TJ=604, QRS=82, FIn=038. ST-and T wave abnormality in inferior and lateral leads, anterior leads. Changed from prior study in 07/2020 PG Care Time/CCT Total # of Minutes Spent Total Time Spent with Patient: Total time spent is greater than 50% in coordination of care (as documented) at patient's floor/unit and/or counseling patient: Coding Level of Care Code 63339 INT INP/OBS CARE 3/75MIN Diagnoses Overdose by ingestion T50.901A Abnormal EKG R94.31 Bipolar 1 disorder F31.9 Tinea corporis B35.4
[2022-08-20] MEDS ORDERED: ACETAMINOPHEN 325 MG TAB PO STA (00:42)
[2022-08-20] MEDS: LACTATED RINGER'S 1,000 ML IV SCH ×2 (02:08→10:06)
[2022-08-20] MEDS ORDERED: BENZTROPINE MESYLATE 0.5 MG TAB PO PRN (02:08)
[2022-08-20] MEDS ORDERED: ACETAMINOPHEN 325 MG TAB PO PRN (02:08)
[2022-08-20 06:41] LABS: Hematocrit (blood only) 30.7 % (37.0-47.0); Hemoglobin 10.5 g/dl (12.0-16.0); Mean Corpuscular Hemoglobin 31.4 pg (25.0-34.0); Mean Corpuscular Hgb Conc 34.2 g/dL (32.0-36.0); Mean Corpuscular Volume 91.9 fL (80.0-100.0); Mean Platelet Volume 10.4 fL (9.4-12.4); Platelet Count 210 K/uL (130-400); RDW Coefficient of Variation 13.4 % (11.5-14.5); RDW Standard Deviation 45.1 fL (36.4-46.3); Red Blood Count 3.34 M/uL (4.20-5.40); White Blood Count 5.44 K/ul (4.8-10.8)
[2022-08-20 07:01] LABS: Calcium 9.1 mg/dl (8.5-10.1); Creatinine Clr Calc Pharmacy 60.8 ml/min; Est GFR (African American) 52.6 ml/min; Est GFR (Non-African American) 45.4 ml/min; Potassium 3.8 mmol/L (3.5-5.1)
--- NOTE | 2022-08-20 07:14 | XRay Report ---
LEFT HAND 3 VIEWS HISTORY: fell on thumb COMPARISON: None. FINDINGS: There is no fracture or dislocation. Soft tissues are unremarkable. No radiopaque foreign b odies. IMPRESSION: No fractures. ACT 112: Negative or not required by law. Electronically signed by: Alejandro Hartman M.D. 08/20/2022 7:13 AM
--- NOTE | 2022-08-20 07:21 | Hospitalist Progress Note ---
Date of Service August 20, 2022 Assessment & Plan (1) Overdose by ingestion: Plan: Patricia Cueva is a 32yo female with PMHx significant for Bipolar I disorder, anxiety, and migraine without aura who was admitted to [facility] from 08/19 - 08/20 for cardiac monitoring after intentional ingestion of Paxil 1200mg total on 08/18 at 22:30. Intentional Overdose Intentional Ingestion of Paxil 1200mg total on 08/18 at 22:30, without suicidal intent. On 08/19 patient reported anxiety, tremors, and blurry vision concerning for some degree of serotonin syndrome, but thankfully most symptoms had resolved upon arrival at hospital. Patient remains without SI this morning. Her intentional overdose was only to demand attention, and she specifically checked to make sure she would not have a fatal overdose. - 1:1 observation and suicide precautions maintained while hospitalized - urine drug screen negative on admission, and tylenol/salicylate levels negative as well - patient's symptoms completely resolved as of morning of 08/20 - EKG initially with anterior T-wave inversions and ST abnormality but this resolved upon repeat EKG x3 - QTc up to 488ms but has improved to 468ms per most recent EKG - Psychiatry consulted - diagnosed patient with Borderline Personality Disorder in addition to previous Bipolar I diagnosis, and recommended re-starting all home medications including Paxil - resume all home medications on discharge, f/u with Psychiatrist on 08/23 as scheduled ZACK, resolving Cr 1.69 on admit, improved to 1.49 after IVFs (baseline Cr 1.3 - 1.4). ?baseline CKD - unclear etiology although patient does have h/o lithium use which may have contributed. - trend as outpatient - per PCP - encouraged adequate fluid intake Bipolar I Disorder Chronic. Patient reports well controlled. Note: patient also exhibits cluster B traits, given self-injurious behavior and ?interpersonal relationship problems. - home Thorazine and Lamictal held on admission - continue on discharge - continue home PRN Benztropine - Psychiatry consulted as stated above Insomnia - home Topamax held on admission - continue on discharge (2) Abnormal EKG: (3) Bipolar 1 disorder: (4) Tinea corporis: Plan: Small area on left abdomen - ring lesion, erythematous, slightly raised and flaking. Resembles tinea corporis -Clotrimazole 1% BID Admission and Anticipated Discharge Date Admission Date: August 19, 2022 Subjective Patient reports that she feels completely well and at baseline this morning. Has a good appetite, taking in good PO intake. Denies SI - reports she only intentionally ingested 30 Paxil pills at 22:30 on 08/18 to "get back" at a anayeli who was not giving her attention. She specifically looked online to make sure she could not "overdose" on the Paxil, before ingesting. She reports that yesterday she was anxious, with blurry vision, with at times uncontrollable generalized shaking, but this has all resolved. Denies headache, anxiety, chest pain, palpitations, shortness of breath, diarrhea or diaphoresis. Review of Systems Review of Systems: All systems reviewed & are unremarkable except as noted in HPI & below Physical Exam Physical Exam: General: A&Ox3. NAD. Cooperative. HEENT: Atraumatic, normocephalic. Pulm: CTAB A&P. -wheezes, -rales, -rhonchi. Symmetrical chest rise. No increase work of breathing. No respiratory distress. Cardiac: RRR, -mrg. Radial pulses intact and symmetrical. Abdominal: soft, non-tender, non-distended, BS x 4 Skin: warm, dry, no rash Results & Data Results & Data ([facility]) Vital Signs (Past 12 Hours) Vital Signs Temp Pulse Pulse Resp BP BP Pulse Ox 08/20/22 07:20 75 08/20/22 01:34 36.7 C 82 16 116/69 100 08/20/22 00:30 90 12 102/59 L 99 08/19/22 23:34 20 117/83 100 08/19/22 23:00 93 H 23 113/73 08/19/22 22:30 96 H 17 08/19/22 22:30 103/72 08/19/22 23:03 92 H 20 113/73 97 08/19/22 22:18 104 H 17 08/19/22 22:18 103/56 L 08/19/22 22:00 79 15 08/19/22 22:00 99/72 L 08/19/22 21:30 77 16 08/19/22 21:30 106/71 08/19/22 21:14 75 16 08/19/22 21:14 98/55 L 08/19/22 21:00 79 27 H 08/19/22 20:30 78 15 08/19/22 20:12 115/73 08/19/22 20:12 84 16 08/19/22 20:11 94 H 08/19/22 19:30 73 18 O2 Del Method 08/20/22 07:20 08/20/22 01:34 Room Air 08/20/22 00:30 Room Air 08/19/22 23:34 08/19/22 23:00 08/19/22 22:30 08/19/22 22:30 08/19/22 23:03 Room Air 08/19/22 22:18 08/19/22 22:18 08/19/22 22:00 08/19/22 22:00 08/19/22 21:30 08/19/22 21:30 08/19/22 21:14 08/19/22 21:14 08/19/22 21:00 08/19/22 20:30 08/19/22 20:12 08/19/22 20:12 08/19/22 20:11 08/19/22 19:30
[2022-08-20] MEDS ORDERED: CLOTRIMAZOLE 1% CR 15 GM TUBE EXT SCH (09:00)
[2022-08-20] MEDS: chlorproMAZINE HCL 25 MG TAB PO SCH ×2 (11:25→11:52)
--- NOTE | 2022-08-20 13:24 | Psychiatric Consultation ---
Date of Consultation August 20, 2022 Impression / Recommendations Impression Bipolar I Disorder and Borderline Personality Disorder with a non-suicidal medication overingestion in what says was an attempt to get attention from a boyfriend. She insists this was not intended as suicidal and I find her believable in this (1) Bipolar I disorder, most recent episode depressed, in partial remission: (2) Borderline personality disorder: Plan Continue/resume home medications: chlorpromazine 50 mg PO QID and 25 mg PO BID PRN psychosis or prashanth lamotrigine 200 mg PO QAM paroxetine 50 mg PO QAM -> recommend confirming whether pt is actually on the topiramate that appears in the EMR; this was not among what she listed for me and could be an older medication. I'm certain the lamotrigine is a current med. Psych History Identifying Data 32 y/o woman admitted following an intentional overdose of paroxetine Chief Complaint "I did a fake overdose". History of Present Illness This 32 year-old woman with an extensive history of bipolar I disorder and borderline personality tells me that she "got upset" because her "boyfriend wasn't returning texts" so she "took a fake overdose of Paxil to get his attention". She explains that by "fake" she means that while she did take an excessive number of tablets, she'd "read up on it and knew that it's really hard to kill yourself with Paxil" and took a dose that she was completely certain would actually be safe. When she announced this in a text to him and got no response she "took a few more". She ruefully notes that he never has responded, adding "I guess that's probably appropriate". Pt emphasizes that she's "been doing really well" on her current regimen and that she has not had any psychiatric admissions for the past 4 years. She has been working at [employer], which she loves, and good range of interests, p articipation in activities. She denies anhedonia or changes in sleep, appetite, energy, or interest. She acknowledges frequent "low-level sucidal thoughts" that she "can push aside" and again emphasizes that the paroxetine ingestion was not related to any suicidal thoughts and "was just to get attention". She expresses remorse at "being so immature" and says she would never complete suicide because of the effect it would have on people she cares about. Past Psychiatric History Previous Psych History: long history of unstable moods, unstable and intense relationships Outpatient Services: says she participating "faithfully" with her outpatient treatment team and (apart from eating a bunch of paroxetine in a relationship snit) adhering closely to her prescribed medication regimen. Previous Psych Admissions: Pt. estimates "about 34" psychiatric admissions Do You Have Access To A Gun?: Yes History of Previous Suicide Attempt: Yes Past Medication Trials: numerous thymoleptic trials including lithium, multiple anticonvulsants and antipsychotics Additional Notes: Has had ECT several times and finds it effective Allergies Allergy/AdvReac Type Severity Reaction Status Date / Time citalopram Allergy Severe Swollen Verified 08/19/22 20:30 tongue fluoxetine AdvReac Intermediate SEROTONIN Verified 08/19/22 20:30 SYNDROME Home Medications Medication Instructions Recorded Confirmed Type chlorpromazine 25 mg tablet 25 mg PO BID 02/05/19 08/19/22 History lamotrigine 100 mg tablet 200 mg PO QAM 02/13/19 08/19/22 History (Lamictal) medroxyprogesterone 150 mg/mL 150 mg IM Q3MO #1 mL 03/30/22 08/19/22 Rx intramuscular suspension erenumab-aooe 140 mg/mL 140 mg subcut MONTHLY 30 days #1 mL 07/12/22 08/19/22 Rx subcutaneous auto-injector (Aimovig Autoinjector) benztropine 0.5 mg tablet 0.5 mg PO BID PRN TWITCHING/JERKING 08/19/22 08/19/22 History chlorpromazine 50 mg tablet 50 mg PO QID 08/19/22 08/19/22 History paroxetine HCl 10 mg tablet 10 mg PO DAILY 08/19/22 08/19/22 History paroxetine HCl 40 mg tablet (Paxil) 40 mg PO DAILY 08/19/22 08/19/22 History topiramate 100 mg tablet 100 mg PO BID 08/19/22 08/19/22 History topiramate 50 mg tablet 50 mg PO BID 08/19/22 08/19/22 History Patient History Medical History Acute psychosis Bipolar 1 disorder Extrapyramidal symptom Fracture of radius Hepatitis High risk HPV infection 11/25/14 History of herpes genitalis History of hypokalemia History of hypothyroidism History of molluscum contagiosum History of pericarditis History of rhabdomyolysis History of sinus tachycardia History of suicidal ideation Hx of drug overdose Intentional Benzodiazepine [place] toxicity 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 Beliefs That Will Affect Care: None marital status: Single Current Living Situation: Alone current occupational status: employed current occupation: [employer] Other Information That Helps Us Care for You: No Feels Safe at Home: Yes Safety Concerns: Feels Safe At This Time Childhood Exposure to Second-Hand Smoke: No caffeine: Yes during the past year weight has: increased > 10 lbs Dental Care, Regularly: Yes Physical Activity Frequency: Does not Exercise Seatbelt Use: always Sunscreen Use: Yes Do you think of yourself as: straight/heterosexual Assistive Devices: None Physical Exam Psychiatric: Orientation: alert, oriented to person, oriented to place and cooperative Apperance: appropriately dressed and appropriately groomed Eye Contact: good eye contact Motor Behavior: no abnormal motor movements Speech: normal rate/rhythm/volume of speech Affect: mood congruent with affect Mood: + dysphoric mood Thought Process: goal directed thought process, linear/logical thought process and clear/coherent thought process Thought Content: not paranoid, no delusions, no persecution, no hopelessness, no worthlessness and no self deprecation Suicidal Thoughts: denies suicidal thoughts, denies suicidal plan and denies suicidal intent Homicidal Thoughts: denies homicidal thoughts Hallucinations: + auditory hallucinations Cognition: recent memory grossly intact, remote memory grossly intact and attention grossly intact Estimated Intelligence: average estimated intelligence Insight: + fair insight Judgment: + limited judgement Vital Signs (Past 24 Hours): Last Vital Signs Temp 36.4 C L 08/20/22 07:39 Pulse 84 08/20/22 07:39 Resp 16 08/20/22 07:39 BP 122/81 08/20/22 07:39 Pulse Ox 99 08/20/22 07:39 O2 Del Method 08/20/22 07:39 Exam Statement: I have reviewed the physical exam performed by the physician during her admission to the medical service. Review of Systems Psychiatric ROS is essentially negative. Pt does not endorse any new or worse mood symptoms, does not endorse psychosis symptoms Results & Data (PSY) Medications Administered Chlorpromazine HCl (Chlorpromazine Hcl 25 Mg Tab) 50 mg PO QID [facility] Stop: 09/19/22 10:44 Last Admin: 08/20/22 11:52 Dose: Not Given Documented By: Admin: 08/20/22 11:25 Dose: 50 mg Documented By: ENEDELIA Clotrimazole (Clotrimazole 1% Cr 15 Gm Tube) 1 appln EXT BID [facility] Stop: 09/19/22 08:59 Last Admin: 08/20/22 08:28 Dose: 1 appln Documented By: ENEDELIA Lactated Ringer's (Lr) 1,000 mls @ 125 mls/hr IV .Q8H EDWINA Stop: 08/20/22 18:07 Last Infusion: 08/20/22 12:34 Dose: 0 mls/hr Documented By: Admin: 08/20/22 10:06 Dose: 125 mls/hr Documented By: Infusion: 08/20/22 10:02 Dose: 0 mls/hr Documented By: Admin: 08/20/22 02:08 Dose: 125 mls/hr Documented By: MICHAEL Coding Level of Care Code INP/OBS CONSULT LVL 3, 45 MIN Diagnoses Bipolar I disorder, most recent episode depressed, in partial remission F31.75 Borderline personality disorder F60.3 Time Spent (min) 50
--- NOTE | 2022-08-20 15:01 | Discharge Summary ---
Date of Service August 20, 2022 Admission HPI Per Admitting Provider Patricia Cueva is a 32yo female with history of BiPolar I, Anxiety presenting with Paxil overdose. Patient reports that she met a man last week and got "obsessed with him". She was upset that he wasn't paying attention to her so she called him last night and informed him that she was going to overdose on pills and that she wanted to . She then took 30 tablets of Paxil (40 mg each) for total 1200mg Paxil. P atient then vomited several times and thinks that she must have vomited up at least some of the pills but did not specifically note pills in the vomitus. She then went to sleep and states that she felt fine. She denies taking other agents or alcohol co-ingestion. This morning when she woke up she felt "terrible". She was shaking and unable to walk due to bilateral leg weakness. She had visual hallucinations of people in her home, going through her drawers and her hamper and climbing into bed with her. She also reports having multiple seizures. Patient reports that she did not want to and states that taking the pills was simply to get the man's attention. She said that after she took the pills she was praying that she didn't . 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 She did have a suicide attempt approximately 4 years ago during which she took 20 Klonopin tablets. She follows with Psychiatry and states that her moods and mental health have been stable and well controlled overall. Additional medical complaints include pain in her left thumb caused by a fall and a small spot of ring worm on her left abdomen. Otherwise she denies chest pain, cough, SOB, abdominal pain, nausea, vomiting, diarrhea. She reports having difficulty passing urine at times as well as constipation. Admission Exam Per Admitting Provider General: patient resting comfortably, NAD, non-toxic in appearance, AA&O x 4 Skin: warm, dry, intact, no rashes or lesions HEENT: NC/AT, PERRL, EOMI, anicteric sclera, conjunctiva without injection, external ear normal to inspection and nontender, nares patent, dry mucus membranes, dentition intact, no oropharyngeal lesions, neck supple, trachea midline, no LAD, no thyromegaly, no JVD Heart: +S1/S2, regular, tachycardic, no m/r/g Lungs: equal air entry bilaterally, no rales/rhonchi/wheezes Abd: +BS, soft, NT/ND, no masses/organomegaly/ascites Ext: warm, 2+ pulses in UE/LE bilaterally, no clubbing/cyanosis or edema Neuro: nonfocal, patient AA&O x 4, speech intact, no facial droop, moving all extremities on command with equal strength 5/5 Principal Diagnosis Intentional Overdose of Paroxetine Discharge Exam General: A&Ox3. NAD. Cooperative. HEENT: Atraumatic, normocephalic. Pulm: CTAB A&P. -wheezes, -rales, -rhonchi. Symmetrical chest rise. No increase work of breathing. No respiratory distress. Cardiac: RRR, -mrg. Radial pulses intact and symmetrical. Abdominal: soft, non-tender, non-distended, BS x 4 Skin: warm, dry, no rash Discharge Data Allergies Allergy/AdvReac Type Severity Reaction Status Date / Time citalopram Allergy Severe Swollen Verified 08/19/22 20:30 tongue fluoxetine AdvReac Intermediate SEROTONIN Verified 08/19/22 20:30 SYNDROME Consultations 08/19/22 22:37 ED Decision to Admit Stat 08/20/22 02:08 Consult Psychiatry Routine 08/20/22 02:13 Consult Behavioral Health Liaison Routine Hospital Course (1) Overdose by ingestion: Patricia Cueva is a 32yo female with PMHx significant for Bipolar I disorder, anxiety, and migraine without aura who was admitted to [facility] from 08/19 - 08/20 for cardiac monitoring after intentional ingestion of Paxil 1200mg total on 08/18 at 22:30. Non-suicidal Intentional Overdose Intentional Ingestion of Paxil 1200mg total on 08/18 at 22:30, without suicidal intent. On 08/19 patient reported anxiety, tremors, and blurry vision concerning for some degree of serotonin syndrome, but thankfully most symptoms had resolved upon arrival at hospital. Patient remains without SI this morning. Her intentional overdose was only to demand attention, and she specifically checked to make sure she would not have a fatal overdose. - 1:1 observation and suicide precautions maintained while hospitalized - urine drug screen negative on admission, and tylenol/salicylate levels negative as well - patient's symptoms completely resolved as of morning of 08/20 - EKG initially with anterior T-wave inversions and ST abnormality but this resolved upon repeat EKG x3 - QTc initially up to 488ms but improved to 427ms on discharge - Psychiatry consulted - diagnosed patient with Borderline Personality Disorder in addition to previous Bipolar I diagnosis, and recommended re-starting all home medications including Paxil. Overdose is non-suicidal - resume all home medications on discharge, f/u with Psychiatrist on 08/23 as scheduled ZACK, resolving Cr 1.69 on admit, improved to 1.49 after IVFs (baseline Cr 1.3 - 1.4). ?baseline CKD - unclear etiology although patient does have h/o lithium use which may have contributed. - trend as outpatient - per PCP - encouraged adequate fluid intake Bipolar I Disorder Chronic. Patient reports well controlled. Note: patient also exhibits cluster B traits, given self-injurious behavior and ?interpersonal relationship problems. - home Thorazine, topamax and Lamictal held on admission - continue on discharge - continue home PRN Benztropine - Psychiatry consulted as stated above Migraines - On Amivog and triptan per last neurology outpatient note. Tinea Corporis Small area on left abdomen - ring lesion, erythematous, slightly raised and flaking. Resembles tinea corporis -Clotrimazole 1% BID (2) Abnormal EKG: (3) Bipolar 1 disorder: (4) Tinea corporis: Total Time Total Time Spent Total Time Spent (In Minutes): 30 minutes Discharge Plan Discharge Items Patient Disposition: Home - Self-Care Reason For Visit: PAXIL OVERDOSE Discharge Diagnosis: Intentional Overdose Activity: Per Instructions section Non-emergency contact: Primary Care Provider Call non-emergency contact if: you have any medication questions Follow-up/Referrals: Susie Mora MD [Primary Care Provider] - 08/25/22 10:20 am (please schedule f/u within 1 week) Diet: Regular Addtl Attending Provider Instructions: You were admitted to [facility] from 08/19 to 08/20 after you ingested 1200mg total of your home Paxil medication. The symptoms you described to us the day you came to the hospital are consistent with Serotonin syndrome, which can happen when taking too much Paxil. Thankfully, your symptoms resolved upon arrival at the hospital. We monitored your heart rate and rhythm, and thankfully this improved during the hospitalization. We consulted our Psychiatrist who recommended that you re-start your home medications. You will be discharged on 08/20. 1. Please continue to take all of your medications ONLY as they are prescribed. 2. Please follow up with your PCP within several days - you will need to have repeat kidney function testing to ensure that your kidney function numbers are normal. 3. Please follow up with your Psychiatrist on 08/23 as scheduled 4. Please continue to use Clotrimazole cream twice per day for the next 1-2 weeks on your rash on your stomach. We hope you continue to feel better. Pending Studies at Discharge: No Stand-Alone Forms: My [facility] [employer], Smoking Cessation Medications and DC Order Prescriptions: New clotrimazole 1 % cream 1 applic topical BID 14 Days Qty: 45 0RF Continued Aimovig Autoinjector 140 mg/mL auto-injector 140 mg SQ MONTHLY 30 Days Qty: 1 11RF Rx Instructions: PER PT "TAKES THE BEGINNING OF THE MONTH". chlorpromazine 25 mg tablet 25 mg PO BID lamotrigine [Lamictal] 100 mg tablet 200 mg PO QAM Rx Instructions: TOTAL DOSE 250 MG--TAKES WITH 50 MT TAB. medroxyprogesterone 150 mg/mL suspension 150 mg IM Q3MO Qty: 1 3RF Rx Instructions: PER PT "HAD IN JULY 2022". paroxetine HCl 10 mg tablet 10 mg PO DAILY Rx Instructions: TOTAL DOSE 50 MG--TAKES WITH 40 MG TAB" PER RX BOTTLE benztropine 0.5 mg tablet 0.5 mg PO BID PRN (Reason: TWITCHING/JERKING) paroxetine HCl [Paxil] 40 mg Tablet 40 mg PO DAILY Rx Instructions: TOTAL DOSE 50 MG--TAKES WITH 10 MG PER RX BOTTLE". topiramate 100 mg tablet 100 mg PO BID Rx Instructions: TOTAL DOSE 150 MG--TAKES WITH 50 MG TAB. chlorpromazine 50 mg tablet 50 mg PO QID topiramate 50 mg tablet 50 mg PO BID Rx Instructions: TOTAL DOSE 150 MG--TAKES WITH 100 MG TAB. Discharge Orders: Discharge Order (Routine); Ordered 08/20/22 Ordered By: Julius Quintanilla Admission Data Admit Date/Time: 08/19/22 23:28 Attending Provider: Sade Silva Admit Provider: Nurys Bell Primary Care Provider: Susie Mora Other Providers: Nurys Bell ; Lela Barnett ; Lolis Acosta ; Casimiro James Supervising Physician Co-Signing Physician Notes Resident Physician Supervision Note: I independently interviewed and examined the patient and verified the stokes history and physical, reviewed labs and image studies and agree with resident findings and care plan. Resident Activity Tracking Resident Involvement: Resident Care Provided Care Provided: Adult [facility]
--- NOTE | 2022-08-21 05:40 | Electrocardiogram Report ---
Test Reason : Blood Pressure : / mmHG Vent. Rate : 083 BPM Atrial Rate : 083 BPM P-R Int : 156 ms QRS Dur : 082 ms QT Int : 390 ms P-R-T Axes : 041 051 006 degrees QTc Int : 458 ms Normal sinus rhythm T wave abnormality, consider inferior ischemia T wave abnormality, consider anterolateral ischemia Abnormal ECG When compared with ECG of 24-JUL-2020 04:24, T wave inversion now evident in Inferior leads T wave inversion now evident in Anterolateral leads Confirmed by Sudhakar Bray ([id number]) on 08/21/2022 5:39:54 AM Referred By: REFERRED SELF Confirmed By:Sudhakar Bray
--- NOTE | 2022-08-21 05:53 | Electrocardiogram Report ---
Test Reason : Blood Pressure : / mmHG Vent. Rate : 071 BPM Atrial Rate : 071 BPM P-R Int : 154 ms QRS Dur : 088 ms QT Int : 394 ms P-R-T Axes : 035 070 -42 degrees QTc Int : 428 ms Normal sinus rhythm Abnormal ECG When compared with ECG of 19-AUG-2022 18:39, No significant change was found Confirmed by Sudhakar Bray ([id number]) on 08/21/2022 5:52:46 AM Referred By: REFERRED SELF Confirmed By:Sudhakar Bray
--- NOTE | 2022-08-21 05:59 | Electrocardiogram Report ---
Test Reason : Blood Pressure : / mmHG Vent. Rate : 083 BPM Atrial Rate : 083 BPM P-R Int : 166 ms QRS Dur : 088 ms QT Int : 416 ms P-R-T Axes : 049 067 -26 degrees QTc Int : 488 ms Normal sinus rhythm Prolonged QT Abnormal ECG When compared with ECG of 19-AUG-2022 22:13, QT has lengthened Confirmed by Sudhakar Bray ([id number]) on 08/21/2022 5:58:58 AM Referred By: REFERRED SELF Confirmed By:Sudhakar Bray
--- NOTE | 2022-08-21 06:14 | Electrocardiogram Report ---
Test Reason : Blood Pressure : / mmHG Vent. Rate : 074 BPM Atrial Rate : 074 BPM P-R Int : 162 ms QRS Dur : 088 ms QT Int : 422 ms P-R-T Axes : 049 060 -04 degrees QTc Int : 468 ms Normal sinus rhythm T wave abnormality, consider anterolateral ischemia Prolonged QT Abnormal ECG When compared with ECG of 20-AUG-2022 00:15, No significant change was found Confirmed by Sudhakar Bray ([id number]) on 08/21/2022 6:14:48 AM Referred By: REFERRED SELF Confirmed By:Sudhakar Bray
--- NOTE | 2022-08-21 08:30 | Electrocardiogram Report ---
Test Reason : Blood Pressure : / mmHG Vent. Rate : 076 BPM Atrial Rate : 076 BPM P-R Int : 154 ms QRS Dur : 080 ms QT Int : 380 ms P-R-T Axes : 040 084 017 degrees QTc Int : 427 ms Normal sinus rhythm Abnormal ECG When compared with ECG of 20-AUG-2022 06:14, QT has shortened Confirmed by Sudhakar Bray ([id number]) on 08/21/2022 8:30:31 AM Referred By: REFERRED SELF Confirmed By:Sudhakar Bray
== END 2022-08-20 16:06 | disposition home or self-care (01) | DRG 918 ==
LOC: ED 17:51 → INTOOBSV 23:28 → 2N 23:28 → SUATTDRO 23:28 → 2N 08-20 01:21

== ENCOUNTER 2023-01-08 13:35 | Observation (INO) ==
[2023-01-08] MEDS ORDERED: SODIUM CHLORIDE 0.9% 1000ML 1,000 ML IV ONE (14:16)
[2023-01-08 14:17] LABS: Basophils # (auto) 0.05 K/uL (0-0.2); Basophils % (auto) 0.7 %; Eosinophils % (auto) 1.4 %; Hematocrit (blood only) 35.9 % (37.0-47.0); Hemoglobin 11.9 g/dl (12.0-16.0); Immature Granulocytes # (auto) 0.01 K/uL (0.01-0.20); Immature Granulocytes % (auto) 0.1 %; Lymphocytes # (auto) 1.69 K/uL (1.2-3.4); Lymphocytes % (auto) 23.1 %; Mean Corpuscular Hemoglobin 29.5 pg (25.0-34.0); Mean Corpuscular Hgb Conc 33.1 g/dL (32.0-36.0); Mean Corpuscular Volume 88.9 fL (80.0-100.0); Mean Platelet Volume 9.7 fL (9.4-12.4); Monocytes # (auto) 0.42 K/uL (0.11-0.59); Monocytes % (auto) 5.7 %; Neutrophils # (auto) 5.04 K/uL (1.40-6.50); Platelet Count 294 K/uL (130-400); RDW Coefficient of Variation 13.2 % (11.5-14.5); RDW Standard Deviation 42.8 fL (36.4-46.3); Red Blood Count 4.04 M/uL (4.20-5.40); White Blood Count 7.31 K/ul (4.8-10.8)
[2023-01-08 14:35] LABS: Albumin Globulin Ratio 1.6 (0.9-2); Albumin Level 4.6 gm/dl (3.4-5.0); BUN Creatinine Ratio 9.9 (10-20); Bilirubin,Total 0.2 mg/dl (0.2-1.0); Calcium 9.6 mg/dl (8.6-10.3); Creatinine Clr Calc Pharmacy 66.7 ml/min; Est GFR (African American) 56.2 ml/min; Est GFR (Non-African American) 48.5 ml/min; Globulin 2.8 gm/dl (2.5-4.0); Potassium 3.3 mmol/L (3.5-5.1); Total Protein 7.4 gm/dl (6.0-8.3)
[2023-01-08 14:46] LABS: Salicylate 3.2 mg/dl (3.0-30)
[2023-01-08 15:14] LABS: Appearance Urine Clear (Clear); Bacteria Urine Automated 1+ (Negative); Bilirubin Urine Negative (Negative); Blood Urine Negative (Negative); Cast Urine Automated 0 /lpf (0-5); Color Urine Yellow; Epithelial Cell Urine Auto >30 /lpf (0-5); Glucose Urine UA Negative (Negative); Ketones Urine Negative (Negative); Leukocyte Esterase Urine 2+ (Negative); Nitrite Urine Negative (Negative); Protein Urine Negative (Negative); RBC Urine Automated 0-4 /hpf (0-4); Specific Gravity Urine 1.006 (1.000-1.030); Urobilinogen Urine Negative (Negative); pH Urine 5.5 (4.5-7.5)
[2023-01-08 15:24] LABS: Pregnancy Test, Serum Negative (Negative)
--- NOTE | 2023-01-08 15:35 | Emergency Department Note ---
History of Present Illness General Chief complaint: Overdose (Intentional) Stated complaint: OVERDOSE Time Seen by Provider: 01/08/23 13:42 Source: patient History of Present Illness Provider complaint: Overdose Onset (ago): hour(s) 1 32-year-old female presents emergency department for overdose. Patient reports she was having a difficult day at work and upset about her coworkers behaviors towards her so at 12:50 PM she took approximately 6 Excedrin tablets and approximately 15 pills of 500 mg generic acetaminophen. Patient states she did that as a cry for attention. She denies any access to any firearms. She denies any chance of . She denies any drugs or alcohol. Home Medications Medication Instructions Recorded Confirmed Type erenumab-aooe 140 mg/mL 140 mg subcut MONTHLY 30 days #1 mL 10/02/22 11/13/22 Rx subcutaneous auto-injector (Aimovig Autoinjector) lamotrigine 100 mg tablet 200 mg PO BID 10/02/22 11/13/22 History (Lamictal) paroxetine HCl 20 mg tablet 40 mg PO DAILY 10/02/22 11/13/22 History trazodone 50 mg tablet 50 mg PO HS PRN insomnia 10/02/22 11/13/22 History medroxyprogesterone 150 mg/mL 150 mg IM Q3MO #1 mL 10/25/22 11/13/22 Rx intramuscular suspension ondansetron HCl 4 mg tablet 4 mg PO BID PRN nausea and 10/30/22 11/13/22 Rx vomiting 4 days #8 tabs aripiprazole 20 mg tablet (Abilify) 20 mg PO DAILY 11/13/22 11/13/22 History gabapentin 400 mg capsule 400 mg PO TID 11/13/22 11/13/22 History ibuprofen 200 mg tablet 400 mg PO DIRECTED PRN Pain 11/13/22 11/13/22 History rimegepant 75 mg disintegrating 75 mg PO DAILY PRN migraine 11/22/22 Rx tablet (Nurtec ODT) headache #8 tabs Allergies Allergy/AdvReac Type Severity Reaction Status Date / Time citalopram Allergy Severe Swollen Verified 11/13/22 19:00 tongue clonidine AdvReac Intermediate FELT LIKE Verified 11/13/22 19:05 HAVING A HEART ATTACK fluoxetine AdvReac Intermediate SEROTONIN Verified 11/13/22 19:00 SYNDROME Past Med/Surg History Medical History Acute psychosis ZACK (acute kidney injury) Depression with suicidal ideation Extrapyramidal symptom Fracture of radius Hepatitis High risk HPV infection 11/25/14 History of herpes genitalis History of hypokalemia History of hypothyroidism History of molluscum contagiosum History of pericarditis History of rhabdomyolysis History of sinus tachycardia History of suicidal ideation Hx of drug overdose Intentional Benzodiazepine [place] toxicity watermaster prescription benzodiazepine use Low grade squamous intraepithelial lesion (LGSIL) gely 1 2014 Low grade squamous intraepithelial lesion (LGSIL) on Papanicolaou smear of cervix 11/25/14 Migraine headache without aura Oculogyric crisis Overdose by ingestion Rhabdomyolysis Serotonin syndrome Suicidal ideation Tinea corporis Toe fracture, right Transaminitis Vitamin deficiency Surgical History H/O colposcopy with cervical biopsy 02/17/15, 04/2020--neg H/O tooth extraction Status post wisdom tooth extraction Family History Mother Hypothyroidism Osteoporosis Grandmother (Maternal) Diabetes Father Unknown family medical history Grandfather (Paternal) Dyslipidemia Brother No problems noted. Denies family history of Ovarian cancer Prostate cancer Myocardial infarction Breast cancer Colorectal cancer Social History Smoking Status: Never smoker Second Hand Exposure: No; Do You Dip or Chew Tobacco: No; Hx Alcohol Use: No Hx Substance Use: No Preferred Language: Persian Communication Ability: Effective Visual Impairment: No Limitations Hearing Ability: Normal Progressive Care Manager Required: No Beliefs That Will Affect Care: None marital status: Single Current Living Situation: Alone current occupational status: employed current occupation: [employer] Feels Safe at Home: Yes Childhood Exposure to Second-Hand Smoke: No Diet: regular caffeine: Yes during the past year weight has: increased > 10 lbs Dental Care, Regularly: Yes Physical Activity Frequency: Does not Exercise Seatbelt Use: always Sunscreen Use: Yes Do you think of yourself as: straight/heterosexual Gender Identity: Female Assistive Devices: None Physical Exam Vital Signs Vital Signs - 24 hr 01/08/23 13:47 01/08/23 13:47 01/08/23 13:57 Temperature 36.9 C Temperature Source Oral Pulse Rate 123 H 118 H Pulse Rate [Finger] Pulse Rhythm Regular Pulse Strength Normal Respiratory Rate 18 Respiratory Effort / Characteristics Non-Labored Respiratory Depth Normal Respiratory Pattern Regular Blood Pressure 162/110 H Blood Pressure [Left Arm] Blood Pressure Mean 127 Blood Pressure Mean [Left Arm] Blood Pressure Position Lying Pulse Oximetry 100 Oxygen Delivery Method Room Air Room Air Sepsis Recent Fever Within 48 Hours No Sepsis New/Unexplained Change in Mental Status N/A Sepsis Action Taken by Nursing No Action Required 01/08/23 17:00 01/08/23 18:49 Temperature Temperature Source Pulse Rate Pulse Rate [Finger] 107 H 96 H Pulse Rhythm Pulse Strength Respiratory Rate 20 20 Respiratory Effort / Characteristics Respiratory Depth Respiratory Pattern Blood Pressure Blood Pressure [Left Arm] 140/108 H 174/113 H Blood Pressure Mean Blood Pressure Mean [Left Arm] 118 133 Blood Pressure Position Pulse Oximetry 100 99 Oxygen Delivery Method Sepsis Recent Fever Within 48 Hours Sepsis New/Unexplained Change in Mental Status Sepsis Action Taken by Nursing Physical Exam GENERAL: Patient is crying and upset emotionally repeatedly saying that she is "emotionally hurting". HENT: Exam performed. - Head: Normocephalic and atraumatic. EYES: Conjunctivae and EOM are normal. Right eye exhibits no discharge. Left eye exhibits no discharge. No scleral icterus. NECK: Normal range of motion. Neck supple. No JVD present. CV: Tachycardic rate, regular rhythm, normal heart sounds and intact distal pulses. There is no peripheral edema. Palpable radial pulses bue. PULM/CHEST: Effort normal and breath sounds normal. No respiratory distress. No stridor. no wheezes. no rales. ABD: The abdomen is soft. There is no tenderness. NEURO: Motor and sensation grossly intact. SKIN: Skin is warm and dry. He is not diaphoretic. PSYCH: normal mood and affect. Behavior is normal. Judgment and thought content normal. Course Course 1342: The patient was evaluated in room B10. A complete history and physical exam was performed Cardiac monitoring: An order was placed for continuous cardiac monitoring. The monitor shows a rate of 120 with sinus tachycardia rhythm interpreted by me Patient will be moved back to the mental health module of the emergency department. 1417: Spoke with poison control. They recommend symptomatic treatment at this time and to check an acetaminophen level at 1650 to see if the patient truly needs NAC. 1850: Vital signs stable. 4-hour acetaminophen level is 192. Discussed with poison control who recommends treating with NAC. Poison control also recommends checking a repeat salicylate level which will be sent at this time. Discussed case with Dr. Moran who accepts patient as an admission. Administered Medications Discontinued Medications Sodium Chloride (Nss 1000ml) 1,000 mls @ 999 mls/hr IV .Q1H1M ONE Stop: 01/08/23 15:16 Last Infusion: 01/08/23 16:47 Dose: 0 mls/hr Documented By: Admin: 01/08/23 15:18 Dose: 999 mls/hr Documented By: BHUMIKA Ondansetron HCl (Ondansetron Inj 2 Mg/Ml 2 Ml Vial) 4 mg IV NOW STA Stop: 01/08/23 17:29 Last Admin: 01/08/23 17:39 Dose: 4 mg Documented By: BHUMIKA Critical Care Time Critical Care Time: Yes Total Critical Care Time: 43 I have personally spent greater than 43 minutes of critical care time in the direct management of this patient. This includes bedside care, interpretation of diagnostic studies, and testing, discussion with consultants, patient, and family members, and other required patient management activities. This 43 minutes is in excess of all separately billable procedures. Medical Decision Making Laboratory Data Attestation: I reviewed the patient's lab results. 01/08/23 13:57 01/08/23 13:57 Lab Results 01/08/23 01/08/23 01/08/23 Range/Units 13:42 13:42 13:57 WBC 7.31 (4.8-10.8) K/ul RBC 4.04 L (4.20-5.40) M/uL Hgb 11.9 L (12.0-16.0) g/dl Hct 35.9 L (37.0-47.0) % MCV 88.9 (80.0-100.0) fL MCH 29.5 (25.0-34.0) pg MCHC 33.1 (32.0-36.0) g/dL RDW Std Deviation 42.8 (36.4-46.3) fL RDW Coeff of Sil 13.2 (11.5-14.5) % Plt Count 294 (130-400) K/uL MPV 9.7 (9.4-12.4) fL Immature Gran % (Auto) 0.1 % Neut % (Auto) 69.0 % Lymph % (Auto) 23.1 % Ralls % (Auto) 5.7 % Eos % (Auto) 1.4 % Baso % (Auto) 0.7 % Neut # (Auto) 5.04 (1.40-6.50) K/uL Lymph # (Auto) 1.69 (1.2-3.4) K/uL Ralls # (Auto) 0.42 (0.11-0.59) K/uL Eos # (Auto) 0.10 (0-0.50) K/uL Baso # (Auto) 0.05 (0-0.2) K/uL Immature Gran # (Auto) 0.01 (0.01-0.20) K/uL Sodium (136-145) mmol/L Potassium (3.5-5.1) mmol/L Chloride (98-107) mmol/L Carbon Dioxide (21-32) mmol/L Anion Gap (3-11) BUN (6-23) mg/dl Creatinine (0.6-1.2) mg/dl Est Cr Clr Drug Dosing ml/min Est GFR ( Amer) ml/min Est GFR (Non-Af Amer) ml/min BUN/Creatinine Ratio (10-20) Glucose (70-99(Fasting)) mg/dl Calcium (8.6-10.3) mg/dl Total Bilirubin (0.2-1.0) mg/dl AST (13-39) U/L ALT (7-52) U/L Alkaline Phosphatase (34-104) U/L Total Protein (6.0-8.3) gm/dl Albumin (3.4-5.0) gm/dl Globulin (2.5-4.0) gm/dl Albumin/Globulin Ratio (0.9-2) TSH (0.300-4.500) uIu/ml HCG, Qual (Negative) Urine Color Yellow Urine Appearance Clear (Clear) Urine pH 5.5 (4.5-7.5) Ur Specific [place] 1.006 (1.000-1.030) Urine Protein Negative (Negative) Urine Glucose (UA) Negative (Negative) Urine Ketones Negative (Negative) Urine Blood Negative (Negative) Urine Nitrite Negative (Negative) Urine Bilirubin Negative (Negative) Urine Urobilinogen Negative (Negative) Ur Leukocyte Esterase 2+ H (Negative) Urine WBC (Auto) 10-30 H (0-5) /hpf Urine RBC (Auto) 0-4 (0-4) /hpf U Hyaline Cast (Auto) 0 (0-5) /lpf U Epithel Cells (Auto) >30 H (0-5) /lpf Urine Bacteria (Auto) 1+ H (Negative) Salicylates (3.0-30) mg/dl Urine Opiates Screen Neg (Neg) Ur Methadone, Qual Neg (Neg) Acetaminophen (10-30) ug/ml Urine Barbiturates Neg (Neg) Ur Phencyclidine (PCP) Neg (Neg) U Amphetamin/Meth Scrn Neg (Neg) MDMA (Ecstasy) Screen Neg (Neg) U Benzodiazepines Scrn Neg (Neg) Ur Cocaine Metabolite Neg (Neg) U Marijuana (THC) Screen Neg (Neg) Ethyl Alcohol mg/dL (<10.0) mg/dl SARS-CoV-2, RNA, NAAT (NEGATIVE) 01/08/23 01/08/23 01/08/23 Range/Units 13:57 13:57 13:57 WBC (4.8-10.8) K/ul RBC (4.20-5.40) M/uL Hgb (12.0-16.0) g/dl Hct (37.0-47.0) % MCV (80.0-100.0) fL MCH (25.0-34.0) pg MCHC (32.0-36.0) g/dL RDW Std Deviation (36.4-46.3) fL RDW Coeff of Sil (11.5-14.5) % Plt Count (130-400) K/uL MPV (9.4-12.4) fL Immature Gran % (Auto) % Neut % (Auto) % Lymph % (Auto) % Ralls % (Auto) % Eos % (Auto) % Baso % (Auto) % Neut # (Auto) (1.40-6.50) K/uL Lymph # (Auto) (1.2-3.4) K/uL R[place] # (Auto) (0.11-0.59) K/uL Eos # (Auto) (0-0.50) K/uL Baso # (Auto) (0-0.2) K/uL Immature Gran # (Auto) (0.01-0.20) K/uL Sodium 138 (136-145) mmol/L Potassium 3.3 L (3.5-5.1) mmol/L Chloride 105 (98-107) mmol/L Carbon Dioxide 24 (21-32) mmol/L Anion Gap 9 (3-11) BUN 14 (6-23) mg/dl Creatinine 1.41 H (0.6-1.2) mg/dl Est Cr Clr Drug Dosing 66.7 ml/min Est GFR ( Amer) 56.2 ml/min Est GFR (Non-Af Amer) 48.5 ml/min BUN/Creatinine Ratio 9.9 L (10-20) Glucose 79 (70-99(Fasting)) mg/dl Calcium 9.6 (8.6-10.3) mg/dl Total Bilirubin 0.2 (0.2-1.0) mg/dl AST 24 (13-39) U/L ALT 19 (7-52) U/L Alkaline Phosphatase 160 H (34-104) U/L Total Protein 7.4 (6.0-8.3) gm/dl Albumin 4.6 (3.4-5.0) gm/dl Globulin 2.8 (2.5-4.0) gm/dl Albumin/Globulin Ratio 1.6 (0.9-2) TSH 2.132 (0.300-4.500) uIu/ml HCG, Qual (Negative) Urine Color Urine Appearance (Clear) Urine pH (4.5-7.5) Ur Specific [place] (1.000-1.030) Urine Protein (Negative) Urine Glucose (UA) (Negative) Urine Ketones (Negative) Urine Blood (Negative) Urine Nitrite (Negative) Urine Bilirubin (Negative) Urine Urobilinogen (Negative) Ur Leukocyte Esterase (Negative) Urine WBC (Auto) (0-5) /hpf Urine RBC (Auto) (0-4) /hpf U Hyaline Cast (Auto) (0-5) /lpf U Epithel Cells (Auto) (0-5) /lpf Urine Bacteria (Auto) (Negative) Salicylates 3.2 (3.0-30) mg/dl Urine Opiates Screen (Neg) Ur Methadone, Qual (Neg) Acetaminophen 15 (10-30) ug/ml Urine Barbiturates (Neg) Ur Phencyclidine (PCP) (Neg) U Amphetamin/Meth Scrn (Neg) MDMA (Ecstasy) Screen (Neg) U Benzodiazepines Scrn (Neg) Ur Cocaine Metabolite (Neg) U Marijuana (THC) Screen (Neg) Ethyl Alcohol mg/dL (<10.0) mg/dl SARS-CoV-2, RNA, NAAT (NEGATIVE) 01/08/23 01/08/23 01/08/23 Range/Units 13:57 13:57 14:19 WBC (4.8-10.8) K/ul RBC (4.20-5.40) M/uL Hgb (12.0-16.0) g/dl Hct (37.0-47.0) % MCV (80.0-100.0) fL MCH (25.0-34.0) pg MCHC (32.0-36.0) g/dL RDW Std Deviation (36.4-46.3) fL RDW Coeff of Sil (11.5-14.5) % Plt Count (130-400) K/uL MPV (9.4-12.4) fL Immature Gran % (Auto) % Neut % (Auto) % Lymph % (Auto) % R[place] % (Auto) % Eos % (Auto) % Baso % (Auto) % Neut # (Auto) (1.40-6.50) K/uL Lymph # (Auto) (1.2-3.4) K/uL [place] # (Auto) (0.11-0.59) K/uL Eos # (Auto) (0-0.50) K/uL Baso # (Auto) (0-0.2) K/uL Immature Gran # (Auto) (0.01-0.20) K/uL Sodium (136-145) mmol/L Potassium (3.5-5.1) mmol/L Chloride (98-107) mmol/L Carbon Dioxide (21-32) mmol/L Anion Gap (3-11) BUN (6-23) mg/dl Creatinine (0.6-1.2) mg/dl Est Cr Clr Drug Dosing ml/min Est GFR ( Amer) ml/min Est GFR (Non-Af Amer) ml/min BUN/Creatinine Ratio (10-20) Glucose (70-99(Fasting)) mg/dl Calcium (8.6-10.3) mg/dl Total Bilirubin (0.2-1.0) mg/dl AST (13-39) U/L ALT (7-52) U/L Alkaline Phosphatase (34-104) U/L Total Protein (6.0-8.3) gm/dl Albumin (3.4-5.0) gm/dl Globulin (2.5-4.0) gm/dl Albumin/Globulin Ratio (0.9-2) TSH (0.300-4.500) uIu/ml HCG, Qual Negative (Negative) Urine Color Urine Appearance (Clear) Urine pH (4.5-7.5) Ur Specific [place] (1.000-1.030) Urine Protein (Negative) Urine Glucose (UA) (Negative) Urine Ketones (Negative) Urine Blood (Negative) Urine Nitrite (Negative) Urine Bilirubin (Negative) Urine Urobilinogen (Negative) Ur Leukocyte Esterase (Negative) Urine WBC (Auto) (0-5) /hpf Urine RBC (Auto) (0-4) /hpf U Hyaline Cast (Auto) (0-5) /lpf U Epithel Cells (Auto) (0-5) /lpf Urine Bacteria (Auto) (Negative) Salicylates (3.0-30) mg/dl Urine Opiates Screen (Neg) Ur Methadone, Qual (Neg) Acetaminophen (10-30) ug/ml Urine Barbiturates (Neg) Ur Phencyclidine (PCP) (Neg) U Amphetamin/Meth Scrn (Neg) MDMA (Ecstasy) Screen (Neg) U Benzodiazepines Scrn (Neg) Ur Cocaine Metabolite (Neg) U Marijuana (THC) Screen (Neg) Ethyl Alcohol mg/dL < 10.0 (<10.0) mg/dl SARS-CoV-2, RNA, NAAT NEGATIVE (NEGATIVE) 01/08/23 Range/Units 17:10 WBC (4.8-10.8) K/ul RBC (4.20-5.40) M/uL Hgb (12.0-16.0) g/dl Hct (37.0-47.0) % MCV (80.0-100.0) fL MCH (25.0-34.0) pg MCHC (32.0-36.0) g/dL RDW Std Deviation (36.4-46.3) fL RDW Coeff of Sil (11.5-14.5) % Plt Count (130-400) K/uL MPV (9.4-12.4) fL Immature Gran % (Auto) % Neut % (Auto) % Lymph % (Auto) % [place] % (Auto) % Eos % (Auto) % Baso % (Auto) % Neut # (Auto) (1.40-6.50) K/uL Lymph # (Auto) (1.2-3.4) K/uL R[place] # (Auto) (0.11-0.59) K/uL Eos # (Auto) (0-0.50) K/uL Baso # (Auto) (0-0.2) K/uL Immature Gran # (Auto) (0.01-0.20) K/uL Sodium (136-145) mmol/L Potassium (3.5-5.1) mmol/L Chloride (98-107) mmol/L Carbon Dioxide (21-32) mmol/L Anion Gap (3-11) BUN (6-23) mg/dl Creatinine (0.6-1.2) mg/dl Est Cr Clr Drug Dosing ml/min Est GFR ( Amer) ml/min Est GFR (Non-Af Amer) ml/min BUN/Creatinine Ratio (10-20) Glucose (70-99(Fasting)) mg/dl Calcium (8.6-10.3) mg/dl Total Bilirubin (0.2-1.0) mg/dl AST (13-39) U/L ALT (7-52) U/L Alkaline Phosphatase (34-104) U/L Total Protein (6.0-8.3) gm/dl Albumin (3.4-5.0) gm/dl Globulin (2.5-4.0) gm/dl Albumin/Globulin Ratio (0.9-2) TSH (0.300-4.500) uIu/ml HCG, Qual (Negative) Urine Color Urine Appearance (Clear) Urine pH (4.5-7.5) Ur Specific [place] (1.000-1.030) Urine Protein (Negative) Urine Glucose (UA) (Negative) Urine Ketones (Negative) Urine Blood (Negative) Urine Nitrite (Negative) Urine Bilirubin (Negative) Urine Urobilinogen (Negative) Ur Leukocyte Esterase (Negative) Urine WBC (Auto) (0-5) /hpf Urine RBC (Auto) (0-4) /hpf U Hyaline Cast (Auto) (0-5) /lpf U Epithel Cells (Auto) (0-5) /lpf Urine Bacteria (Auto) (Negative) Salicylates (3.0-30) mg/dl Urine Opiates Screen (Neg) Ur Methadone, Qual (Neg) Acetaminophen 192 H* (10-30) ug/ml Urine Barbiturates (Neg) Ur Phencyclidine (PCP) (Neg) U Amphetamin/Meth Scrn (Neg) MDMA (Ecstasy) Screen (Neg) U Benzodiazepines Scrn (Neg) Ur Cocaine Metabolite (Neg) U Marijuana (THC) Screen (Neg) Ethyl Alcohol mg/dL (<10.0) mg/dl SARS-CoV-2, RNA, NAAT (NEGATIVE) ECG Data Attestation: I personally reviewed and interpreted this ECG as follows: Indication: + toxicologic Rate (beats per minute): 115 Rhythm: + normal sinus ECG Intervals/blocks: + Normal QRS, + Normal RI and + Normal QT-c ECG ST segments: + Normal ST segments [facility] Narrative 1342: The patient was evaluated in room B10. A complete history and physical exam was performed Cardiac monitoring: An order was placed for continuous cardiac monitoring. The monitor shows a rate of 120 with sinus tachycardia rhythm interpreted by me Patient will be moved back to the mental health module of the emergency d [facility]. 1417: Spoke with poison control. They recommend symptomatic treatment at this time and to check an acetaminophen level at 1650 to see if the patient truly needs NAC. 1850: Vital signs stable. 4-hour acetaminophen level is 192. Discussed with poison control who recommends treating with NAC. Poison control also recommends checking a repeat salicylate level which will be sent at this time. Discussed case with Dr. Moran who accepts patient as an admission. Impression & Plan Tylenol overdose Discharge Plan Visit Data Chief Complaint: Overdose (Intentional) Stated Complaint: OVERDOSE ED Provider: Avtar Espinal Discharge Problem: Tylenol overdose Patient Disposition: Admitted As Inpatient Forms Stand Alone Forms: [facility], Suicide Prevention Resources Prescriptions Prescriptions: No Action medroxyprogesterone 150 mg/mL suspension 150 mg IM Q3MO Qty: 1 1RF Rx Instructions: LAST HAD OCTOBER 2022. Nurtec ODT 75 mg tablet,disintegrating 75 mg PO DAILY PRN (Reason: migraine headache) Qty: 8 3RF ondansetron HCl 4 mg tablet 4 mg PO BID PRN (Reason: nausea and vomiting) 4 Days Qty: 8 0RF paroxetine HCl 20 mg tablet 40 mg PO DAILY Rx Instructions: PER PT "TAKE 20 MG DAILY, DID TAKE A SECOND DOSE AT 1630, THINKING IF THIS WAS AN ANXIETY ATTACK WOULD GET AHEAD OF IT". trazodone 50 mg tablet 50 mg PO HS PRN (Reason: insomnia) Aimovig Autoinjector 140 mg/mL auto-injector 140 mg SQ MONTHLY 30 Days Qty: 1 11RF Rx Instructions: PER PT "DUE RIGHT ABOUT NOW". lamotrigine [Lamictal] 100 mg tablet 200 mg PO BID gabapentin 400 mg capsule 400 mg PO TID ibuprofen 200 mg Tablet 400 mg PO DIRECTED PRN (Reason: Pain) aripiprazole [Abilify] 20 mg tablet 20 mg PO DAILY Referrals Referrals: Susie Mora MD [Primary Care Provider] - Tylenol overdose Qualifiers: Encounter type: initial encounter Injury intent: intentional self-harm Qualified Code(s): T39.1X2A - Poisoning by 4-Aminophenol derivatives, intentional self-harm, initial encounter
[2023-01-08 15:54] LABS: Amphetamines+Metham, Urine Neg (Neg); Barbiturates, Urine Neg (Neg); Benzodiazepine, Urine Neg (Neg); Cocaine, Urine Neg (Neg); MDMA (Ecstacy), Urine Neg (Neg); Methadone, Urine Neg (Neg); Opiate, Urine Neg (Neg); Phencyclidine, Urine Neg (Neg)
[2023-01-08] MEDS ORDERED: ONDANSETRON INJ 2 MG/ML 2 ML VIAL IV STA ×2 (17:28→20:44)
[2023-01-08] MEDS ORDERED: ACETYLCYSTEINE IV ONE ×3 (18:28)
[2023-01-08] MEDS ORDERED: DEXTROSE 5% IV ONE ×3 (18:28)
--- NOTE | 2023-01-08 19:21 | History & Physical Report ---
Date of Service January 08, 2023 Assessment & Plan (1) Tylenol overdose: Plan: Patient presents following acute intentional ingestion of tyelnol and excedrin - Patient took around 1250 on 01/08/23 - 15 (500mg Tylenol) and 6 Excedrin tabs - NAC therapy- follow Tylenol levels at 12, 16, 24 hours - Salicylate level at 12 hour and 16 hour dosing - IVF with LR at 110 ml/hour - LFTs in am - INR normal at this time (2) Overdose of salicylate: Plan: Possible overdose- continue to trend labs for peak as her 4 hour level is up to 11 - glucose is normal - not delirious - is without anion gap - If salicylate level >40 alkanylyze with sodium HCO3/discuss with poison control - replete potassium - IVF as above (3) Suicidal behavior: Plan: Patient with intentional ingestion as above - reports that this was a call for attention - continue with suicide precautions until she can contract for safety - psych consult appreciated (4) ZACK (acute kidney injury): Plan: ZACK continue with IVF - baseline [employer]LECT[employer] S[employer] SERVIC[employer] appears chronically elevated -1.1-1.3 - follow with am labs - avoid further nephrotoxic medications (5) Borderline personality disorder: Plan: Continue Abilify Continue Lamotrigine Continue Paroxetine (6) Depression: Plan: As above (7) Migraine headache without aura: Plan: Continue with Lamotrigine - She is due for her migrane medication but states she it is only filled on certain times History of Present Illness Primary Care Provider: Susie Mora MD 32 YOF with medical history of: Bipolar I disorder, Borderline Personality disorder, migraines, control use. Patient comes to the EMD today following ingestion of ~ 6 Excedrin tablets and ~ 15 (500mg) Tylenol tablets. Patient states that she took these at 1250. Patient states that she was doing this as a call for attention. She reports that she did not want to hurt herself, but just needed away to deal with the situation. Patient reports that she was having a "stressful day at work and her manager air was harassing her all day, it was busy and I was really doing a tough job, I took my break and came back feeling better and then she started harassing me again". Since she didn't have any one to talk to she took Excedrin and Tylenol as a "call for attention, if i really wanted to kill myself I would have taken the whole bottle". "I take Tylenol and Excedrin frequently because she has frequent migraines and she knows a dangerous dose." Patient reports that she normally has a counselor that she can call through [employer] or [facility]; however they were closed today. Patient also reports previous hospitalization in [place] in October or November where she checked herself into inpatient psych stay for medication adjustment. Patient has a previous admission in October, where she also reports that "I did a fake overdose" with her Paxil. Patient was evaluated in the [facility], she had routine labs drawn to include Tylenol level and salicylate levels. Initial Tylenol level was 15 and 4 hour post ingestion was 192- and she was started on NAC therapy. Salicylate level was 3.2 on arrival and 4 hour post ingestion was 11.8. Patient will be admitted with IVF, continuation of NAC therapy, following of Tylenol level at 12, 16, 24 hour andrea, and salicylate level at 12 hour andrea and in am. Will continue suicde precautions and 1:1. Psych consulted for evaluation/medication adjustment. CODE: FULL COVID: Negative Allergies Allergy/AdvReac Type Severity Reaction Status Date / Time citalopram Allergy Severe Swollen Verified 11/13/22 19:00 tongue clonidine AdvReac Intermediate FELT LIKE Verified 11/13/22 19:05 HAVING A HEART ATTACK fluoxetine AdvReac Intermediate SEROTONIN Verified 11/13/22 19:00 SYNDROME Home Medications Medication Instructions Recorded Confirmed Type erenumab-aooe 140 mg/mL 140 mg subcut MONTHLY 30 days #1 mL 10/02/22 11/13/22 Rx subcutaneous auto-injector (Aimovig Autoinjector) lamotrigine 100 mg tablet 200 mg PO BID 10/02/22 11/13/22 History (Lamictal) paroxetine HCl 20 mg tablet 40 mg PO DAILY 10/02/22 11/13/22 History trazodone 50 mg tablet 50 mg PO HS PRN insomnia 10/02/22 11/13/22 History medroxyprogesterone 150 mg/mL 150 mg IM Q3MO #1 mL 10/25/22 11/13/22 Rx intramuscular suspension ondansetron HCl 4 mg tablet 4 mg PO BID PRN nausea and 10/30/22 11/13/22 Rx vomiting 4 days #8 tabs aripiprazole 20 mg tablet (Abilify) 20 mg PO DAILY 11/13/22 11/13/22 History gabapentin 400 mg capsule 400 mg PO TID 11/13/22 11/13/22 History ibuprofen 200 mg tablet 400 mg PO DIRECTED PRN Pain 11/13/22 11/13/22 History rimegepant 75 mg disintegrating 75 mg PO DAILY PRN migraine 11/22/22 Rx tablet (Nurtec ODT) headache #8 tabs Past Med/Surg History Medical History (Updated 01/08/23 @ 21:00 by CHERI Salgado) Acute psychosis ZACK (acute kidney injury) Depression with suicidal ideation Extrapyramidal symptom Fracture of radius Hepatitis High risk HPV infection 11/25/14 History of herpes genitalis History of hypokalemia History of hypothyroidism History of molluscum contagiosum History of pericarditis History of rhabdomyolysis History of sinus tachycardia History of suicidal ideation Hx of drug overdose Intentional Benzodiazepine [place] 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 Low grade squamous intraepithelial lesion (LGSIL) gely 1 2014 Low grade squamous intraepithelial lesion (LGSIL) on Papanicolaou smear of cervix 11/25/14 Migraine headache without aura Oculogyric crisis Overdose by ingestion Rhabdomyolysis Serotonin syndrome Suicidal ideation Tinea corporis Toe fracture, right Transaminitis Vitamin deficiency Surgical History H/O colposcopy with cervical biopsy 02/17/15, 04/2020--neg H/O tooth extraction Status post wisdom tooth extraction Family History Mother Hypothyroidism Osteoporosis Grandmother (Maternal) Diabetes Father Unknown family medical history Grandfather (Paternal) Dyslipidemia Brother No problems noted. 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 Beliefs That Will Affect Care: None marital status: Single Current Living Situation: Alone current occupational status: employed current occupation: [employer] Feels Safe at Home: Yes Safety Concerns: Feels Safe At This Time Childhood Exposure to Second-Hand Smoke: No Diet: regular caffeine: Yes during the past year weight has: increased > 10 lbs Dental Care, Regularly: Yes Physical Activity Frequency: Does not Exercise Seatbelt Use: always Sunscreen Use: Yes Do you think of yourself as: straight/heterosexual Gender Identity: Female Assistive Devices: None Review of Systems Review of Systems: REVIEW OF SYSTEMS: Constitutional: No fever, sweats or chills Eyes: No diplopia, no worsening or blurred vision ENT: normal hearing, no trouble swallowing Respiratory: No cough, sputum, dyspnea at rest or on exertion Cardiovascular: No chest pain, tightness or palpitations Abdomen: No pain, nausea, vomiting, diarrhea or constipation Musculoskeletal: No joint pain, calf pain, swelling Neurologic: No weakness, numbness/tingling, or balance problems Psychiatric: (+) stress, anxiety Skin: No rash or itch Physical Exam Physical Exam: PHYSICAL EXAM: General: awake, alert, pressured speach and racing thoughts Head: Normocephalic, atraumatic ENT: PERRLA, EOMI, no pharyngeal exudate, mucous membranes dry Neuro: AAO x 3, speech clear and appropriate, strength intact bilaterally 5/5, sensation intact and equal all extremities and dermatomes, no pronator drift Chest: equal rise and fall of the chest, no accessory muscle use, no heaves or thrills, Clear to auscultation, on room air, Cardiac: Regular rate and rhythm, telemetry reviewed- sinus tach, skin warm dry, cap refill <3 seconds, peripheral pulses +2 no JVD, no murmur, GI: NABS x 4 quadrants, soft, nontender to palpation, no rebound, guarding or tenderness Psych: Rapid speech and multiple stories at once Results & Data Results & Data Vital Signs (Past 12 Hours) Vital Signs Temp Pulse Pulse Resp BP BP Pulse Ox 01/08/23 18:49 96 H 20 174/113 H 99 01/08/23 17:00 107 H 20 140/108 H 100 01/08/23 13:57 118 H 01/08/23 13:47 01/08/23 13:47 36.9 C 123 H 18 162/110 H 100 O2 Del Method 01/08/23 18:49 01/08/23 17:00 01/08/23 13:57 01/08/23 13:47 Room Air 01/08/23 13:47 Room Air Laboratory Results Abnormal lab results 01/08/23 01/08/23 01/08/23 Range/Units 13:42 13:57 13:57 RBC 4.04 L (4.20-5.40) M/uL Hgb 11.9 L (12.0-16.0) g/dl Hct 35.9 L (37.0-47.0) % Potassium 3.3 L (3.5-5.1) mmol/L Creatinine 1.41 H (0.6-1.2) mg/dl BUN/Creatinine Ratio 9.9 L (10-20) Alkaline Phosphatase 160 H (34-104) U/L Ur Leukocyte Esterase 2+ H (Negative) Urine WBC (Auto) 10-30 H (0-5) /hpf U Epithel Cells (Auto) >30 H (0-5) /lpf Urine Bacteria (Auto) 1+ H (Negative) Acetaminophen (10-30) ug/ml 01/08/23 Range/Units 17:10 RBC (4.20-5.40) M/uL Hgb (12.0-16.0) g/dl Hct (37.0-47.0) % Potassium (3.5-5.1) mmol/L Creatinine (0.6-1.2) mg/dl BUN/Creatinine Ratio (10-20) Alkaline Phosphatase (34-104) U/L Ur Leukocyte Esterase (Negative) Urine WBC (Auto) (0-5) /hpf U Epithel Cells (Auto) (0-5) /lpf Urine Bacteria (Auto) (Negative) Acetaminophen 192 H* (10-30) ug/ml Medications Administered Home Medications erenumab-aooe 140 mg/mL subcutaneous auto-injector (Aimovig Autoinjector) 140 mg subcut MONTHLY 30 days #1 mL 10/02/22 [Rx Confirmed 11/13/22] lamotrigine 100 mg tablet (Lamictal) 200 mg PO BID 10/02/22 [History Confirmed 11/13/22] paroxetine HCl 20 mg tablet 40 mg PO DAILY 10/02/22 [History Confirmed 11/13/22] trazodone 50 mg tablet 50 mg PO HS PRN insomnia 10/02/22 [History Confirmed 11/13/22] medroxyprogesterone 150 mg/mL intramuscular suspension 150 mg IM Q3MO #1 mL 10/25/22 [Rx Confirmed 11/13/22] ondansetron HCl 4 mg tablet 4 mg PO BID PRN nausea and vomiting 4 days #8 tabs 10/30/22 [Rx Confirmed 11/13/22] aripiprazole 20 mg tablet (Abilify) 20 mg PO DAILY 11/13/22 [History Confirmed 11/13/22] gabapentin 400 mg capsule 400 mg PO TID 11/13/22 [History Confirmed 11/13/22] ibuprofen 200 mg tablet 400 mg PO DIRECTED PRN Pain 11/13/22 [History Confirmed 11/13/22] rimegepant 75 mg disintegrating tablet (Nurtec ODT) 75 mg PO DAILY PRN migraine headache #8 tabs 11/22/22 [Rx] Active Medications Acetylcysteine 14,340 mg/ (Dextrose) 271.7 mls @ 200 mls/hr IV ONCE ONE; P rotocol Stop: 01/08/23 19:49 Last Admin: 01/08/23 19:06 Dose: 200 mls/hr Acetylcysteine 4,780 mg/ (Dextrose) 523.9 mls @ 125 mls/hr IV ONCE ONE; Protocol Stop: 01/08/23 22:39 Acetylcysteine 9,560 mg/ (Dextrose) 1,047.8 mls @ 62.5 mls/hr IV ONCE ONE; Protocol Stop: 01/09/23 11:13 Acetylcysteine 14,340 mg/ (Dextrose) 271.7 mls @ 200 mls/hr IV ONCE ONE; Protocol Stop: 01/08/23 19:49 Last Admin: 01/08/23 19:06 Dose: 200 mls/hr Documented By: Discontinued Medications Sodium Chloride (Nss 1000ml) 1,000 mls @ 999 mls/hr IV .Q1H1M ONE Stop: 01/08/23 15:16 Last Infusion: 01/08/23 16:47 Dose: 0 mls/hr Documented By: Admin: 01/08/23 15:18 Dose: 999 mls/hr Documented By: BHUMIKA Ondansetron HCl (Ondansetron Inj 2 Mg/Ml 2 Ml Vial) 4 mg IV NOW STA Stop: 01/08/23 17:29 Last Admin: 01/08/23 17:39 Dose: 4 mg Documented By: BHUMIKA ECG Additional Comments: Sinus tachycardia Otherwise normal ECG When compared with ECG of 13-NOV-2022 18:05, No significant change was found Code Status & VTE Plan VTE Prophylaxis Plan VTE Prophylaxis will be ordered: Yes Supervising Physician Co-Signing Physician Notes I personally saw and examined the patient. I verified all stokes points and agree with CHERI Logan with the following exceptions and/or additions: 32 year old female presents to the ER following an acetaminophen and Excedrin. RUQ pain on exam which she reports not present prior to overdose. No fever or chills. O/E A&Ox3, HS RRR, no murmurs, Chest CTAB, Abdo RUQ pain without guarding or rebound tenderness, no focal neurological weakness A/P Intentional overdose - one to one, consult psych Acetaminophen overdose - NAC protocol started, appears to be tolerating this well. Continue to touch base with poison control for ongoing management. RUQ abdominal pain - suspect due to acetaminophen overdose and liver toxicity. Consider US liver if not resolving. PG Care Time/CCT Total # of Minutes Spent Total Time Spent with Patient: Total time spent is greater than 50% in coordination of care (as documented) at patient's floor/unit and/or counseling patient: Coding Level of Care Code 56442 INT INP/OBS CARE 2/55MIN Diagnoses Tylenol overdose T39.1X2A Encounter type: initial encounter Injury intent: intentional self-harm Overdose of salicylate T39.091A Suicidal behavior R45.89 ZACK (acute kidney injury) N17.9 Borderline personality disorder F60.3 Depression F32.9 Migraine headache without aura G43.009 (1) Tylenol overdose Encounter type: initial encounter Injury intent: intentional self-harm Qualified Code(s): T39.1X2A - Poisoning by 4-Aminophenol derivatives, intentional self-harm, initial encounter
[2023-01-08] MEDS ORDERED: POTASSIUM CHLORIDE CRTAB 20 MEQ TABCR PO STA (21:02)
[2023-01-08] MEDS ORDERED: LACTATED RINGER'S 1,000 ML IV SCH (21:15)
[2023-01-08] MEDS ORDERED: ONDANSETRON INJ 2 MG/ML 2 ML VIAL IV PRN (21:33)
[2023-01-08] MEDS: LACTATED RINGER'S 1,000 ML IV SCH (22:06)
[2023-01-08] MEDS: lamoTRIgine 100 MG TAB PO SCH ×2 (22:11→22:15)
[2023-01-08] MEDS: GABAPENTIN 400 MG CAP PO SCH ×2 (22:12→22:15)
[2023-01-08] MEDS ORDERED: METOPROLOL TARTRATE 1 MG/ML VIAL IV STA (22:56)
[2023-01-09 02:52] LABS: Salicylate 5.3 mg/dl (3.0-30)
[2023-01-09] MEDS ORDERED: METOPROLOL TARTRATE 1 MG/ML VIAL IV STA ×2 (05:04→06:19)
[2023-01-09 06:12] LABS: Basophils # (auto) 0.05 K/uL (0-0.2); Basophils % (auto) 0.7 %; Eosinophils # (auto) 0.08 K/uL (0-0.50); Eosinophils % (auto) 1.1 %; Hematocrit (blood only) 38.3 % (37.0-47.0); Hemoglobin 12.7 g/dl (12.0-16.0); Immature Granulocytes # (auto) 0.01 K/uL (0.01-0.20); Immature Granulocytes % (auto) 0.1 %; Lymphocytes % (auto) 21.4 %; Mean Corpuscular Hgb Conc 33.2 g/dL (32.0-36.0); Mean Corpuscular Volume 87.4 fL (80.0-100.0); Mean Platelet Volume 9.9 fL (9.4-12.4); Monocytes # (auto) 0.44 K/uL (0.11-0.59); Monocytes % (auto) 5.9 %; Neutrophils # (auto) 5.31 K/uL (1.40-6.50); Neutrophils % (auto) 70.8 %; Platelet Count 293 K/uL (130-400); RDW Coefficient of Variation 13.2 % (11.5-14.5); RDW Standard Deviation 41.9 fL (36.4-46.3); Red Blood Count 4.38 M/uL (4.20-5.40); White Blood Count 7.49 K/ul (4.8-10.8)
[2023-01-09 06:17] LABS: Salicylate 3.9 mg/dl (3.0-30)
[2023-01-09] MEDS: LACTATED RINGER'S 1,000 ML IV SCH (06:21)
[2023-01-09 06:28] LABS: BUN Creatinine Ratio 8.5 (10-20); Bilirubin Direct 0.1 mg/dl (0-0.2); Bilirubin,Total 0.4 mg/dl (0.2-1.0); Calcium 9.4 mg/dl (8.6-10.3); Creatinine Clr Calc Pharmacy 86.8 ml/min; Est GFR (African American) 79.3 ml/min; Est GFR (Non-African American) 68.5 ml/min; Magnesium 1.8 mg/dl (1.7-2.4); Potassium 3.4 mmol/L (3.5-5.1); Total Protein 6.8 gm/dl (6.0-8.3)
--- NOTE | 2023-01-09 07:50 | XRay Report ---
SINGLE VIEW CHEST CLINICAL HISTORY: Atypical chest pain. FINDINGS: An AP, portable, upright chest radiograph is compared to chest x-ray and chest CT dated 11/13. The cardiomediastinal silhouette is unremarkable. The lungs and pleural spaces are clear. No p neumothorax is seen. The bony thorax is grossly intact. IMPRESSION: No active disease in the chest. ACT 112: Negative or not required by law. Electronically signed by: Kalia Diaz M.D. 01/09/2023 7:48 AM
[2023-01-09 07:52] LABS: INR 1.1 (0.9-1.1); Prothrombin Time 11.5 Seconds (9.0-12.0)
[2023-01-09] MEDS: lamoTRIgine 100 MG TAB PO SCH ×2 (08:19→15:27)
[2023-01-09] MEDS: GABAPENTIN 400 MG CAP PO SCH ×4 (08:20→15:28)
[2023-01-09] MEDS ORDERED: ARIPiprazole 10 MG TAB PO SCH (09:00)
[2023-01-09] MEDS ORDERED: PARoxetine HCL 20 MG TAB PO SCH (09:00)
[2023-01-09] MEDS ORDERED: GABAPENTIN 400 MG CAP PO SCH (12:00)
[2023-01-09 14:46] LABS: Albumin Level 3.8 gm/dl (3.4-5.0); Bilirubin Direct 0.1 mg/dl (0-0.2); Bilirubin,Total 0.3 mg/dl (0.2-1.0); Total Protein 6.3 gm/dl (6.0-8.3)
[2023-01-09 14:55] LABS: Prothrombin Time 11.4 Seconds (9.0-12.0)
[2023-01-09] MEDS ORDERED: POTASSIUM CHLORIDE CRTAB 20 MEQ TABCR PO STA (15:49)
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
[2023-01-09] MEDS ORDERED: POLYETHYLENE (MIRALAX) 17 GM PACK PO SCH (17:00)
[2023-01-09] MEDS ORDERED: METOPROLOL TARTRATE 25 MG TAB PO STA (18:25)
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
[2023-01-10] MEDS ORDERED: METOPROLOL TARTRATE 25 MG TAB PO SCH (09:00)
--- NOTE | 2023-01-11 07:18 | Electrocardiogram Report ---
Test Reason : Blood Pressure : / mmHG Vent. Rate : 115 BPM Atrial Rate : 115 BPM P-R Int : 128 ms QRS Dur : 082 ms QT Int : 342 ms P-R-T Axes : 044 065 033 degrees QTc Int : 473 ms Sinus tachycardia Otherwise normal ECG When compared with ECG of 13-NOV-2022 18:05, No significant change was found Confirmed by Sudhakar Bray ([id number]) on 01/11/2023 7:18:06 AM Referred By: Confirmed By:Sudhakar Bray
--- NOTE | 2023-01-12 05:42 | Electrocardiogram Report ---
Test Reason : Blood Pressure : / mmHG Vent. Rate : 121 BPM Atrial Rate : 121 BPM P-R Int : 138 ms QRS Dur : 074 ms QT Int : 320 ms P-R-T Axes : 045 059 027 degrees QTc Int : 454 ms Sinus tachycardia Nonspecific T wave abnormality When compared with ECG of 08-JAN-2023 14:03, No significant change was found Confirmed by Sudhakar Bray ([id number]) on 01/12/2023 5:42:07 AM Referred By: REFERRED SELF Confirmed By:Sudhakar Bray
--- NOTE | 2023-01-13 12:44 | Discharge Summary ---
Date of Service date of admission - January 08, 2023 date of leaving against medical advice - January 09, 2023 Admission HPI Per Admitting Provider 32 YOF with medical history of: Bipolar I disorder, Borderline Personality disorder, migraines, control use. Patient comes to the [facility] today following ingestion of ~ 6 Excedrin tablets and ~ 15 (500mg) Tylenol tablets. Patient states that she took these at 1250. Patient states that she was doing this as a call for attention. She reports that she did not want to hurt herself, but just needed away to deal with the situation. 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 Since she didn't have any one to talk to she took Excedrin and Tylenol as a "call for attention, if i really wanted to kill myself I would have taken the whole bottle". "I take Tylenol and Excedrin frequently because she has frequent migraines and she knows a dangerous dose." Patient reports that she normally has a counselor that she can call through [employer] or [employer]; however they were closed today. Patient also reports previous hospitalization in [place] in October or November where she checked herself into inpatient psych stay for medication adjustment. Patient has a previous admission in October, where she also reports that "I did a fake overdose" with her Paxil. Patient was evaluated in the [facility], she had routine labs drawn to include Tylenol level and salicylate levels. Initial Tylenol level was 15 and 4 hour post ingestion was 192- and she was started on NAC therapy. Salicylate level was 3.2 on arrival and 4 hour post ingestion was 11.8. Patient will be admitted with IVF, continuation of NAC therapy, following of Tylenol level at 12, 16, 24 hour andrea, and salicylate level at 12 hour andrea and in am. Will continue suicde precautions and 1:1. Psych consulted for evaluation/medication adjustment. Principal Diagnosis 1. tylenol overdose 2. salicylate overdose 3. suicidal ideation 4. acute kidney injury 5. constipation 6. left against medical advice Discharge Exam gen - NAD, affect wnl mouth - MMM neck - no JVD heart - RRR, s1 s2, no murmur lungs - CTA b/l abd - soft NT ND BS+ ext - no edema, pulses 2+ b/l psych - affect wnl; a/o x 3; denies suicidal ideation Discharge Data Allergies Allergy/AdvReac Type Severity Reaction Status Date / Time citalopram Allergy Severe Swollen Verified 11/13/22 19:00 tongue clonidine AdvReac Intermediate FELT LIKE Verified 11/13/22 19:05 HAVING A HEART ATTACK fluoxetine AdvReac Intermediate SEROTONIN Verified 11/13/22 19:00 SYNDROME Consultations Psychiatry Poison Control (by phone) Ordered Studies Chest X-Ray 01/08/23 22:20 SINGLE VIEW CHEST CLINICAL HISTORY: Atypical chest pain. FINDINGS: An AP, portable, upright chest radiograph is compared to chest x-ray and chest CT dated 11/13/2022. The cardiomediastinal silhouette is unremarkable. The lungs and pleural spaces are clear. No pneumothorax is seen. The bony thorax is grossly intact. IMPRESSION: No active disease in the chest. ACT 112: Negative or not required by law. Electronically signed by: Kalia Diaz M.D. 01/09/2023 7:48 AM Hospital Course (1) Tylenol overdose: Patient presented following acute intentional ingestion of tylenol and excedrin took 15 tabs of 500mg each of tylenol at 1250pm on 01/08/23 took 6 tabs of excedrin concurrently peak tylenol level was 192 (normal 10-30) tylenol levels improved s/p NAC protocol x 24 hours last tylenol level was 3 on day of leaving against medical advice LFTs were stable/normal while here INR was wnl x 2 (2) Overdose of salicylate: no signs/symptoms of toxicity levels trended down and were normal prior to discharge (AMA) no gastritis no metabolic acidosis no tinnitus (3) Suicidal behavior: Patient with intentional ingestion as above but stated she was simply stressed out from the issues at her workplace as delineated in the history of present illness She denied any intention of trying to self-harm Was placed on 1:1 precautions initially Psychiatry consult was completed and they ultimately cleared her as she was consistently denying suicidal or homicidal ideation Psychiatry did not feel she required inpatient psychiatric treatment as she was not actively suicidal or homicidal She was not manic despite her h/o bipolar disorder None of her chronic psych meds were changed during this brief stay (4) ZACK (acute kidney injury): Cr peak 1.4 Cr 1 at discharge s/p copious IV fluids was taking adequate PO prior to discharge (5) Borderline personality disorder: Continue Abilify Continue Lamotrigine Continue Paroxetine (6) Depression: As above Psych consult completed Ingestion of tylenol/excedrin was NOT felt to be a suicidal gesture/act but rather in response to stress at work (7) Migraine headache without aura: Continue with Lamotrigine for prophylaxis No c/o migraine while here (8) Constipation: severe based on KUB x-ray 12/05/22 has slow transit - has BM 1x/week usually would benefit from outpatient GI consultation candidate for linzess?? in meantime - miralax qd-BID +/- senokot f/u with PCP for this and consider GI consult as outpatient (9) Left against medical advice: on the evening of January 09 - after psychiatry had cleared her (ie - inpatient psych treatment would not be needed and she was felt to NOT have active suicidal ideation) - the patient became agitated and irate at nursing staff. the night resident physician, psych liaison, and the psychiatry attending all came to bedside to evaluate her. she was deemed to have capacity to make her own medical decisions and was not felt to be suicidal or homicidal. she was encouraged to remain hospitalized but instead opted to leave the hospital. her discharge therefore was "AMA" (left against medical advice). (10) Bipolar I disorder, most recent episode depressed, in partial remission: continue usual chronic medications without any changes Total Time Total Time Spent Total Time Spent (In Minutes): 20 Discharge Plan Discharge Items Patient Disposition: Against Medical Advice Reason For Visit: SUICIDAL GESTURE Activity: Per Instructions section Non-emergency contact: Primary Care Provider Follow-up/Referrals: Susie Mora MD [Primary Care Provider] - Pending Studies at Discharge: No Stand-Alone Forms: My viaC[employer], Smoking Cessation Medications and DC Order Prescriptions: Continued Nurtec ODT 75 mg tablet,disintegrating 75 mg PO DAILY PRN (Reason: migraine headache) Qty: 8 3RF ondansetron HCl 4 mg tablet 4 mg PO BID PRN (Reason: nausea and vomiting) 4 Days Qty: 8 0RF paroxetine HCl 20 mg tablet 40 mg PO DAILY Rx Instructions: PER PT "TAKE 20 MG DAILY, DID TAKE A SECOND DOSE AT 1630, THINKING IF THIS WAS AN ANXIETY ATTACK WOULD GET AHEAD OF IT". trazodone 50 mg tablet 50 mg PO HS PRN (Reason: insomnia) Aimovig Autoinjector 140 mg/mL auto-injector 140 mg SQ MONTHLY 30 Days Qty: 1 11RF Rx Instructions: PER PT "DUE RIGHT ABOUT NOW". lamotrigine [Lamictal] 100 mg tablet 200 mg PO BID gabapentin 400 mg capsule 400 mg PO TID ibuprofen 200 mg Tablet 400 mg PO DIRECTED PRN (Reason: Pain) aripiprazole [Abilify] 20 mg tablet 20 mg PO DAILY Discharge Orders: Left Against Medical Advice (Routine); Ordered 01/09/23 Ordered By: Ida Bolanos Admission Data Admit Date/Time: 01/08/23 19:20 Attending Provider: Eliseo Moser Admit Provider: Eliseo Moran Primary Care Provider: Susie Mora Other Providers: Andrea James ; Ida Bolanos Coding Level of Care Code 28019 IN/OBS DISCH 30 MIN/LESS Diagnoses Tylenol overdose T39.1X2A Encounter type: initial encounter Injury intent: intentional self-harm Overdose of salicylate T39.091A Suicidal behavior R45.89 ZACK (acute kidney injury) N17.9 Borderline personality disorder F60.3 Depression F32.9 Migraine headache without aura G43.009 Constipation K59.00 Left against medical advice Z53.29 Bipolar I disorder, most recent episode depressed, in partial remission F31.75
== END 2023-01-09 22:30 | disposition left against medical advice (07) | DRG 918 ==
LOC: ED 13:35 → INTOOBSV 19:20 → 2S 19:20 → SUATTDRO 19:20 → 2S 21:14

== ENCOUNTER 2025-04-22 12:47 | Inpatient (IN) ==
[2025-04-22 13:28] LABS: Hematocrit (blood only) 29.1 % (37.0-47.0); Hemoglobin 10.0 g/dl (12.0-16.0); Immature Granulocytes # (auto) 0.28 K/uL (0.01-0.20); Immature Granulocytes % (auto) 2.0 %; Mean Corpuscular Hemoglobin 32.2 pg (25.0-34.0); Mean Corpuscular Volume 93.6 fL (80.0-100.0); Platelet Count 253 K/uL (130-400); RDW Standard Deviation 43.5 fL (36.4-46.3); Red Blood Count 3.11 M/uL (4.20-5.40); White Blood Count 13.91 K/ul (4.8-10.8)
[2025-04-22 13:45] LABS: Alanine Aminotransferase 11.0 U/L (7-52); Albumin Globulin Ratio 0.9 (0.9-2); Albumin Level 3.1 gm/dl (3.4-5.0); Alkaline Phosphatase 108.0 U/L (34-104); Anion Gap 9.0 (3-11); Bilirubin,Total 0.2 mg/dl (0.2-1.0); Blood Urea Nitrogen 12.0 mg/dl (6-23); Calcium 9.3 mg/dl (8.6-10.3); Carbon Dioxide 22.0 mmol/L (21-32); Chloride 106.0 mmol/L (98-107); Creatinine Clr Calc Pharmacy 116.4 ml/min; Globulin 3.4 gm/dl (2.5-4.0); Glucose 97.0 mg/dl (70-99(Fasting)); Potassium 4.4 mmol/L (3.5-5.1); Sodium 137.0 mmol/L (136-145); Total Protein 6.5 gm/dl (6.0-8.3)
[2025-04-22 13:52] LABS: Protein Creatinine Ratio Urine 0.5 (0-0.2); Total Protein Urine Random 9.6 mg/dl (0-11.9)
--- NOTE | 2025-04-22 14:28 | Labor Progress Brief Note ---
Date of Service April 22, 2025 Subjective Patient denies RUFF, vision change, no RUQ pain, no significant edema. FOB at bedside, supportive. SIUP at 37w3d with planned IOL tomorrow for gestational HTN. Sent from office today since she was found to have elevated BP. Patient takes labetalol 100mg PO BID, dosed at 5:30am and around noon; she took her mid-day dose today shortly after office BP's were taken. She was hoping this would normalize her BP; however she has continued to have elevated BP here on L&D. BP reached a high of 177/114, though most have been mild range. Labs checked, Pr/Cr ratio 0.5, so now preeclampsia. Plts and LFT's remain OK at this time; Cr high normal at 0.9. Discussed would recommend she proceed with IOL today. She is very hungry and wants to eat first, but after that would be agreeable. Aware I am not yet diagnosing severe, but pt aware it may occur over the course of her admission. For now, FOB is going to go retrieve her bags and a meal of her choice. After she eats, will allow placement of cervical arambula. Results & Data Vital Signs (Past 12 Hours) Vital Signs Temp Pulse Resp BP 04/22/25 14:19 104 H 04/22/25 14:19 149/89 H 04/22/25 14:04 99 H 04/22/25 14:04 154/94 H 04/22/25 13:35 101 H 04/22/25 13:35 154/99 H 04/22/25 13:34 105 H 04/22/25 13:34 177/114 H 04/22/25 13:18 98.2 F 20 04/22/25 12:51 105 H 139/99 Coding Level of Care Code None
[2025-04-22] MEDS ORDERED: SODIUM CHLORIDE 0.9% 100 ML IV PRN (15:06)
--- NOTE | 2025-04-22 18:32 | Labor Progress Brief Note ---
Date of Service April 22, 2025 Subjective Patient BP has normalized at last few checks, despite being as high as 183/97 earlier and not receiving any antihypertensive here. She continues to feel well. Ate an entire medium cheese pizza by herself for dinner meal. Jokes that it fixed her BP! Feels ready to have arambula catheter placed in cervix and begin IOL. Assessment & Plan (1) Preeclampsia: Plan: Not diagnosed severe, BP not requiring med mgmt beyond her usual PO labetalol home dose. IOL begun with Arambula for ripening, but AROM occurred during placement so catheter removed. Low dose pit until cervix 3-4 cm then will increase per protocol. Physical Exam Genitourinary: /-2/soft/post Arambula placed through cervix and AROM occurred prior to balloon inflation. Fluid clear. FHT Cat 1, toco quiet. Results & Data Vital Signs (Past 12 Hours) Vital Signs Temp Pulse Resp BP 04/22/25 17:54 96 H 04/22/25 17:54 124/71 04/22/25 17:30 16 04/22/25 17:30 16 04/22/25 17:24 98 H 04/22/25 17:24 122/65 04/22/25 17:06 106 H 04/22/25 17:06 149/86 H 04/22/25 16:07 18 04/22/25 16:07 18 04/22/25 15:54 97 H 04/22/25 15:54 128/82 04/22/25 15:24 96 H 04/22/25 15:24 131/85 04/22/25 14:54 97 H 04/22/25 14:54 183/97 H 04/22/25 14:34 100 H 04/22/25 14:34 151/94 H 04/22/25 14:19 104 H 04/22/25 14:19 149/89 H 04/22/25 14:04 99 H 04/22/25 14:04 154/94 H 04/22/25 14:00 18 04/22/25 14:00 18 04/22/25 13:35 101 H 04/22/25 13:35 154/99 H 04/22/25 13:34 105 H 04/22/25 13:34 177/114 H 04/22/25 13:30 20 04/22/25 13:30 20 04/22/25 13:18 98.2 F 20 04/22/25 12:51 105 H 139/99 Coding Level of Care Code None Diagnoses Preeclampsia O14.90
[2025-04-22] MEDS ORDERED: LIDOCAINE 1% LOCAL 20 ML VIAL INFIL PRN (18:33)
[2025-04-22] MEDS ORDERED: OXYTOCIN 30 UNITS/NSS 30 UNITS/500 ML BAG IV PRN (18:33)
[2025-04-22] MEDS: LACTATED RINGER'S 1,000 ML IV PRN (19:06)
[2025-04-22] MEDS: OXYTOCIN 30 UNITS/NSS 30 UNITS/500 ML BAG IV PRN (19:45)
--- NOTE | 2025-04-22 23:43 | Labor Progress Brief Note ---
Date of Service April 22, 2025 Subjective Denies RUFF, RUQ, Vision change or new edema. Wanting to be up to BR often, dislikes LOF. Dislikes needing to maintain position to allow tracing. Initially agreeable to FSE but not accepting of presence of cord in labia after placement, requesting removal. Assessment & Plan (1) Severe preeclampsia: Plan: Recurrent severe BP, and despite pt being asymptomatic with this, she clearly meets criteria for severe preeclampsia. Magnesium ordered, arambula catheter ordered. Labetalol 20mg IV for current BP elevation. Admission and Anticipated Discharge Date Admission Date: April 22, 2025 Physical Exam Genitourinary: / LOF clear FSE placed at request of RN who notes difficulty tracing FHT, with patient permission. FSE lead placed securely but not working well. Patient requests removal and declines replacement, citing discomfort with the wire per vagina. FHT Cat 1 Booth Q4-20 irregular Results & Data Vital Signs (Past 12 Hours) Vital Signs Temp Pulse Resp BP 04/22/25 23:33 102 H 04/22/25 23:33 173/91 H 04/22/25 23:17 100 H 04/22/25 23:17 179/87 H 04/22/25 22:30 18 04/22/25 22:30 97.9 F 18 04/22/25 22:19 109 H 04/22/25 22:19 162/71 H 04/22/25 22:05 99 H 04/22/25 22:05 163/77 H 04/22/25 21:52 96 H 04/22/25 21:52 171/79 H 04/22/25 20:48 98 H 04/22/25 20:48 128/72 04/22/25 20:30 18 04/22/25 20:30 97.9 F 18 04/22/25 20:17 89 04/22/25 20:17 144/96 H 04/22/25 19:59 91 H 04/22/25 19:59 170/91 H 04/22/25 19:30 18 04/22/25 19:30 97.9 F 18 04/22/25 19:29 100 H 04/22/25 19:29 140/87 04/22/25 18:54 93 H 04/22/25 18:54 167/91 H 04/22/25 18:45 20 04/22/25 18:45 98.2 F 20 04/22/25 18:40 98.2 F 04/22/25 18:30 20 04/22/25 18:30 20 04/22/25 17:54 96 H 04/22/25 17:54 124/71 04/22/25 17:30 16 04/22/25 17:30 16 04/22/25 17:24 98 H 04/22/25 17:24 122/65 04/22/25 17:06 106 H 04/22/25 17:06 149/86 H 04/22/25 16:07 18 04/22/25 16:07 18 04/22/25 15:54 97 H 04/22/25 15:54 128/82 04/22/25 15:24 96 H 04/22/25 15:24 131/85 04/22/25 14:54 97 H 04/22/25 14:54 183/97 H 04/22/25 14:34 100 H 04/22/25 14:34 151/94 H 04/22/25 14:19 104 H 04/22/25 14:19 149/89 H 04/22/25 14:04 99 H 04/22/25 14:04 154/94 H 04/22/25 14:00 18 04/22/25 14:00 18 04/22/25 13:35 101 H 04/22/25 13:35 154/99 H 04/22/25 13:34 105 H 04/22/25 13:34 177/114 H 04/22/25 13:30 20 04/22/25 13:30 20 04/22/25 13:18 98.2 F 20 04/22/25 12:51 105 H 139/99 Coding Level of Care Code None Diagnoses Severe preeclampsia O14.10
[2025-04-22] MEDS: LABETALOL HCL IV 5 MG/ML 20ML IV STA (23:51)
[2025-04-23] MEDS: MAGNESIUM SULFATE / WTR 40 GM/1,000 ML BAG IV SCH (00:05)
[2025-04-23] MEDS ORDERED: NALOXONE HCL 0.4 MG/1 ML VIAL/CARP IV PRN (00:41)
[2025-04-23] MEDS ORDERED: ROPIVACAINE 0.5% PF 5 MG/ML 20 ML VIAL EPI PRN (00:41)
[2025-04-23] MEDS ORDERED: NALBUPHINE HCL INJ 10 MG/ML AMP IV PRN (00:41)
[2025-04-23] MEDS ORDERED: LIDOCAINE 2% MPF LOCAL 5 ML VIAL EPI PRN (00:41)
[2025-04-23] MEDS ORDERED: BUPIVACAINE 0.25% PF 30 ML VIAL EPI PRN (00:41)
[2025-04-23] MEDS ORDERED: SODIUM CHLORIDE 0.9% PF INJ 10 ML VIAL EPI PRN (00:41)
[2025-04-23] MEDS ORDERED: NALOXONE HCL 1 MG in SODIUM CHLORIDE 0.9% 1,000 ML IV PRN (00:41)
[2025-04-23] MEDS ORDERED: diphenhydrAMINE 50 MG/ML VIAL IV PRN (00:41)
--- NOTE | 2025-04-23 00:45 | Anesthesiology Consultation ---
Date of Service April 23, 2025 Assessment & Plan Chart Review Chart Review: Patient NOT seen in Pre Admission Testing and Acceptable Risk for Labor Epidural Consults Requested none ASA ASA3 Proposed Anesthesia Anesthesia Type: Labor Epidural Risk / Benefits Reviewed With: PT / POA / Parent / Guardian, Accepts Plan and Informed Consent Obtained History Height/Weight Height: 5 ft 7 in Weight: 123 kg Allergies Allergy/AdvReac Type Severity Reaction Status Date / Time citalopram Allergy Severe Swollen Verified 04/22/25 10:07 tongue sertraline [From Zoloft] Allergy Mild Anxiety Verified 04/22/25 13:10 clonidine AdvReac Intermediate FELT LIKE Verified 04/22/25 10:07 HAVING A HEART ATTACK fluoxetine AdvReac Intermediate SEROTONIN Verified 04/22/25 10:07 SYNDROME Medications Home Medications Medication Instructions Recorded Confirmed Last Taken doxylamine succinate 25 mg tablet 25 mg PO Q6H PRN Anxiety 03/16/25 04/22/25 04/21/25 (Unisom (doxylamine)) lamotrigine 25 mg tablet (Lamictal) 50 mg PO DAILY 03/16/25 04/22/25 04/22/25 polyethylene glycol 3350 17 17 g PO DAILY PRN HERPES 03/16/25 04/22/25 Unknown gram/dose oral powder (Miralax) ferrous gluconate 240 mg (27 mg 240 mg PO DAILY 03/27/25 04/22/25 04/22/25 iron) tablet (Ferate) [id number] 3 fatty no.1 27 1 cap PO DAILY 03/30/25 04/22/25 04/22/25 mg-1 mg-300 mg capsule olanzapine 5 mg tablet 5 mg PO DAILY PRN anxiety #30 tabs 03/30/25 04/22/25 04/22/25 labetalol 100 mg tablet 100 mg PO BID #60 tabs 04/06/25 04/22/25 04/22/25 hydroxyzine HCl 50 mg tablet 50 mg PO Q6H PRN anxiety #84 tabs 04/22/25 Unknown levothyroxine 75 mcg tablet 75 mcg PO DAILY #30 tabs 04/22/25 Unknown olanzapine 10 mg tablet 10 mg PO DAILY #21 tabs 04/22/25 Unknown valacyclovir 500 mg tablet 500 mg PO BID 04/22/25 04/22/25 04/22/25 (Valtrex) Active Medications Generic Name Dose Route Start Last Admin Trade Name Freq PRN Reason Stop Dose Admin Oxytocin 30 units in 500 mls @ 2 mls/hr 04/22/25 18:32 04/22/25 19:45 Pitocin 30 Units/Nss IV 04/24/25 18:31 0.12 units/hr .Q24H PRN 2 mls/hr Labor Induction/Augmentation Administration Protocol 0.12 UNITS/HR Lactated Ringer's 1,000 mls @ 125 mls/hr 04/22/25 18:33 04/23/25 00:05 Lr IV 04/24/25 18:32 75 mls/hr .Q8H PRN Infusion L&D Protocol Protocol Magnesium Sulfate 40 gm in 1,000 mls @ 50 mls/hr 04/22/25 23:45 04/23/25 00:05 Magnesium Sulfate / Wtr IV 05/22/25 23:44 200 mls/hr .Q20H EDWINA Administration NPO Date Last Intake of Fluids: 04/16/25 Time Last Intake of Fluids: 00:15 Date Last Intake of Solids: 04/22/25 Time Last Intake of Solids: 16:00 Past Medical History Medical History Varicella Dysplasia of cervix, low grade (GELY 1) Borderline personality disorder Bipolar I disorder, most recent episode depressed, in partial remission Low grade squamous intraepith lesion on cytologic smear cervix (lgsil) Oculogyric crisis Migraine headache without aura Anemia Emotional lability Excessive daytime sleepiness HPV test positive Herpes labialis Vitamin D deficiency Anxiety Depression Closed fracture of phalanx of right fifth toe Overdose by ingestion Depression with suicidal ideation High risk HPV infection 11/25/14 Low grade squamous intraepithelial lesion (LGSIL) on Papanicolaou smear of cervix 11/25/14 History of molluscum contagiosum Fracture of radius History of herpes genitalis Vitamin deficiency Transaminitis History of suicidal ideation History of rhabdomyolysis Low grade squamous intraepithelial lesion (LGSIL) gely 1 2014 long-term prescription benzodiazepine use Hx of drug overdose Intentional Benzodiazepine History of pericarditis History of sinus tachycardia History of hypothyroidism History of hypokalemia Extrapyramidal symptom Suicidal ideation Serotonin syndrome Rhabdomyolysis Lambert toxicity Hepatitis Exercise / Class Metabolic Activity 1 > 8 Run/Swim/Ski/Tennis Past Family History Family History Mother Hypothyroidism Osteoporosis Grandmother (Maternal) Diabetes Father Unknown family medical history Grandfather (Paternal) Dyslipidemia Brother No problems noted. Denies family history of Ovarian cancer Prostate cancer Myocardial infarction Breast cancer Colorectal cancer Past Surgical History Surgical History H/O colposcopy with cervical biopsy 02/17/15, 04/2020--neg, 05/2023--gely 1 H/O tooth extraction Status post wisdom tooth extraction Past Anesthesia History No Hx of Anesthesia Complications and No Family Hx of Anesthesia Complications History of PONV No Hx of PONV and No Hx of Motion Sickness Social History Smoking Status: Never smoker tobacco type: cigarettes Do You Dip or Chew Tobacco: No Hx Alcohol Use: No Alcohol type: beer alcohol intake frequency: holidays/special occasions only Hx Substance Use: No substance use type: marijuana Review of Systems ROS Unobtainable: All systems reviewed & are unremarkable except as noted in HPI & below Physical Exam Vital Signs Last Vital Signs Temp 36.6 C 04/22/25 22:30 Pulse 93 H 04/23/25 00:41 Resp 18 04/22/25 22:30 BP 155/72 H 04/23/25 00:41 Pulse Ox 96 04/23/25 00:38 ENMT Mouth: no TMJ abnormality Thyromental Distance: > or= 3.5 Finger Breadths Mallampati Class: II Neck normal visual inspection and trachea midline; neck extension not limited Respiratory normal respiratory effort Auscultation: lungs clear to auscultation bilaterally Cardiovascular Rate/Rhythm: regular rate and regular rhythm Heart Sounds: no murmur Musculoskeletal Spine: normal cervical ROM Extremities: full ROM of extremities Neurologic moves all extremities Psychiatric Orientation: alert and oriented x 3 Testing Laboratory Results 04/22/25 12:56 04/22/25 12:56 Blood Type O Positive 04/22/25 13:00 Antibody Screen NEGATIVE 04/22/25 13:00
[2025-04-23] MEDS: BUPIVACAINE 0.25% PF 30 ML VIAL EPI STA (01:34)
[2025-04-23] MEDS: LIDOCAINE 2%/EPINEPHRINE 1:200,000 20 ML PF EPI STA (01:34)
[2025-04-23] MEDS: fentANYL 2 MCG/ML BUPIVacaine 0.125%-NSS 100ML BAG EPI PRN (01:36)
[2025-04-23] MEDS: LIDOCAINE 2% JELLY 5 ML TUBE EXT ONE (02:03)
[2025-04-23] MEDS: BUPIVACAINE 0.25% PF 30 ML VIAL ONE (02:03)
[2025-04-23] MEDS: SODIUM CHLORIDE 0.9% PF INJ 10 ML VIAL ONE (02:04)
[2025-04-23] MEDS: fentANYL 2 MCG/ML BUPIVacaine 0.125%-NSS 100ML BAG ONE (02:04)
[2025-04-23] MEDS: LIDOCAINE 2%/EPINEPHRINE 1:200,000 20 ML PF ONE ×2 (02:04→16:06)
[2025-04-23] MEDS: MAG SULFATE 4GM BOLUS FROM BAG IV ONE (02:06)
[2025-04-23] MEDS: SODIUM CHLORIDE 0.9% PF INJ 10 ML VIAL EPI STA (02:08)
[2025-04-23] MEDS: OLANZapine 10 MG TAB PO STA (05:49)
[2025-04-23] MEDS: lamoTRIgine 25 MG TAB PO STA (05:50)
--- NOTE | 2025-04-23 07:27 | Labor Progress Brief Note ---
Date of Service April 23, 2025 Subjective Vomiting; declined zofran. Clear liquid in emesis bag, large volume. Water bottle at bedside. Assessment & Plan Admission and Anticipated Discharge Date Admission Date: April 22, 2025 Physical Exam Genitourinary: //-2 LOF Clear FHT Cat 1 [place] rare ctx but pt sitting up and vomiting, may not be tracing. Results & Data Vital Signs (Past 12 Hours) Vital Signs Temp Pulse Resp BP Pulse Ox 04/23/25 07:24 110 H 96 04/23/25 07:19 123 H 96 04/23/25 07:14 103 H 95 04/23/25 07:13 108 H 134/67 04/23/25 07:09 115 H 95 04/23/25 07:04 114 H 95 04/23/25 06:59 114 H 97 04/23/25 06:57 113 H 127/67 04/23/25 06:54 114 H 97 04/23/25 06:49 115 H 97 04/23/25 06:43 109 H 97 04/23/25 06:42 114 H 129/70 04/23/25 06:38 126 H 98 04/23/25 06:33 113 H 96 04/23/25 06:28 115 H 97 04/23/25 06:27 107 H 133/74 04/23/25 06:23 104 H 97 04/23/25 06:18 101 H 96 04/23/25 06:13 100 H 96 04/23/25 06:12 100 H 115/62 04/23/25 06:08 100 H 95 04/23/25 06:03 97 H 95 04/23/25 05:58 96 H 96 04/23/25 05:57 102 H 124/71 04/23/25 05:53 104 H 96 04/23/25 05:48 109 H 97 04/23/25 05:43 101 H 97 04/23/25 05:42 98 H 119/65 04/23/25 05:38 98 H 96 04/23/25 05:33 125 H 98 04/23/25 05:28 98 H 95 04/23/25 05:27 96 H 113/56 L 04/23/25 05:23 94 H 95 04/23/25 05:18 96 H 95 04/23/25 05:13 97 H 95 04/23/25 05:12 100 H 115/60 04/23/25 05:08 98 H 95 04/23/25 05:03 96 H 95 04/23/25 04:58 102 H 95 04/23/25 04:56 107 H 116/60 04/23/25 04:55 95 H 90 04/23/25 04:53 101 H 94 04/23/25 04:48 97 H 94 04/23/25 04:43 96 H 95 04/23/25 04:42 97.0 F L 18 04/23/25 04:41 96 H 110/55 L 04/23/25 04:38 94 H 94 04/23/25 04:33 98 H 95 04/23/25 04:28 95 H 95 04/23/25 04:27 93 H 117/63 04/23/25 04:23 92 H 95 04/23/25 04:18 92 H 96 04/23/25 04:15 18 04/23/25 04:13 98 H 96 04/23/25 04:12 90 114/64 04/23/25 04:08 91 H 95 04/23/25 04:03 89 95 04/23/25 04:00 16 04/23/25 04:00 16 04/23/25 03:58 98 H 96 04/23/25 03:57 86 139/73 04/23/25 03:53 92 H 95 04/23/25 03:48 93 H 96 04/23/25 03:43 92 H 96 04/23/25 03:42 90 132/77 04/23/25 03:38 90 96 04/23/25 03:33 92 H 96 04/23/25 03:28 93 H 96 04/23/25 03:27 85 137/85 04/23/25 03:23 89 96 04/23/25 03:18 87 97 04/23/25 03:13 86 97 04/23/25 03:12 86 137/84 04/23/25 03:08 100 H 98 04/23/25 03:03 92 H 97 04/23/25 03:00 18 04/23/25 02:58 95 H 98 04/23/25 02:57 88 128/67 04/23/25 02:53 96 H 98 04/23/25 02:48 102 H 98 04/23/25 02:43 89 97 04/23/25 02:42 90 127/68 04/23/25 02:39 109 H 92 04/23/25 02:38 104 H 96 04/23/25 02:33 85 98 04/23/25 02:28 94 H 98 04/23/25 02:27 94 H 129/73 04/23/25 02:24 97.9 F 04/23/25 02:23 94 H 95 04/23/25 02:21 110 H 94 04/23/25 02:18 88 97 04/23/25 02:13 101 H 98 04/23/25 02:12 91 H 112/59 L 04/23/25 02:08 108 H 97 04/23/25 02:03 96 H 98 04/23/25 02:00 18 04/23/25 01:58 102 H 97 04/23/25 01:57 107 H 138/69 04/23/25 01:53 107 H 98 04/23/25 01:48 133 H 95 04/23/25 01:45 18 04/23/25 01:43 105 H 97 04/23/25 01:41 110 H 145/68 H 04/23/25 01:40 18 04/23/25 01:39 104 H 140/64 04/23/25 01:38 105 H 97 04/23/25 01:37 105 H 145/66 H 04/23/25 01:35 18 04/23/25 01:35 109 H 147/68 H 04/23/25 01:33 97 04/23/25 01:33 101 H 04/23/25 01:33 100 H 161/74 H 04/23/25 01:31 104 H 162/78 H 04/23/25 01:30 18 04/23/25 01:28 102 H 97 04/23/25 01:23 102 H 98 04/23/25 01:18 97 04/23/25 01:18 102 H 04/23/25 01:18 100 H 164/99 H 04/23/25 01:13 100 H 97 04/23/25 01:08 100 H 96 04/23/25 01:06 100 H 88 L 04/23/25 01:03 100 H 97 04/23/25 01:00 18 04/23/25 00:58 96 H 98 04/23/25 00:53 105 H 97 04/23/25 00:52 100 H 93 04/23/25 00:51 100 H 155/96 H 04/23/25 00:48 97 H 96 04/23/25 00:46 97 H 159/78 H 04/23/25 00:43 98 H 96 04/23/25 00:41 93 H 155/72 H 04/23/25 00:38 98 H 96 04/23/25 00:36 99 H 152/67 H 04/23/25 00:35 106 H 92 04/23/25 00:33 100 H 96 04/23/25 00:32 107 H 191/81 H 04/23/25 00:30 97.9 F 04/23/25 00:28 97 H 95 04/23/25 00:26 99 H 160/83 H 04/23/25 00:23 96 H 97 04/23/25 00:22 97 H 176/84 H 04/23/25 00:20 94 H 165/88 H 04/23/25 00:18 100 H 96 04/23/25 00:17 96 H 167/125 H 04/23/25 00:13 93 H 98 04/23/25 00:11 96 H 157/90 H 04/23/25 00:08 96 H 97 04/23/25 00:06 96 H 177/84 H 04/23/25 00:03 93 H 97 04/23/25 00:01 96 H 174/79 H 04/23/25 00:00 18 04/22/25 23:58 98 04/22/25 23:58 95 H 04/22/25 23:58 169/79 H 04/22/25 23:55 100 H 04/22/25 23:55 172/80 H 04/22/25 23:49 93 H 04/22/25 23:49 176/84 H 04/22/25 23:33 102 H 04/22/25 23:33 173/91 H 04/22/25 23:17 100 H 04/22/25 23:17 179/87 H 04/22/25 22:30 18 04/22/25 22:30 97.9 F 18 04/22/25 22:19 109 H 04/22/25 22:19 162/71 H 04/22/25 22:05 99 H 04/22/25 22:05 163/77 H 04/22/25 21:52 96 H 04/22/25 21:52 171/79 H 04/22/25 20:48 98 H 04/22/25 20:48 128/72 04/22/25 20:30 18 04/22/25 20:30 97.9 F 18 04/22/25 20:17 89 04/22/25 20:17 144/96 H 04/22/25 19:59 91 H 04/22/25 19:59 170/91 H 04/22/25 19:30 18 04/22/25 19:30 97.9 F 18 04/22/25 19:29 100 H 04/22/25 19:29 140/87 Coding Level of Care Code None
[2025-04-23] MEDS: FLUTICASONE PROPIONATE NA SPR 16 GM BTL PRN (07:43)
[2025-04-23] MEDS: ACETAMINOPHEN 325 MG TAB PO PRN ×2 (08:55→21:54)
[2025-04-23] MEDS ORDERED: OLANZapine 10 MG TAB PO SCH (09:00)
[2025-04-23] MEDS ORDERED: NURSING L&D Epidural Breakthrough Pain Update ONE (09:30)
--- NOTE | 2025-04-23 10:59 | Labor Progress Brief Note ---
Date of Service April 23, 2025 Subjective comfortable after redose Assessment & Plan (1) Preeclampsia: (2) High risk medication use: Plan continue current plan. monitor carefully. fetus has been intermittently category two but overall has been reassuring. Times of decreased variability secondary to mag effect. Admission and Anticipated Discharge Date Admission Date: April 22, 2025 Physical Exam Physical Exam: cx--5/75/-2 fse and iupc placed toco--difficult tracing. q3-5min, pit at 16 efm--150s wtih mod variabiltiy Results & Data Vital Signs (Past 12 Hours) Vital Signs Temp Pulse Resp BP Pulse Ox 04/23/25 10:54 110 H 97 04/23/25 10:52 111 H 131/68 04/23/25 10:49 113 H 96 04/23/25 10:44 110 H 96 04/23/25 10:39 116 H 94 04/23/25 10:37 114 H 111/55 L 04/23/25 10:34 114 H 97 04/23/25 10:29 115 H 96 04/23/25 10:24 118 H 97 04/23/25 10:23 129 H 139/58 L 04/23/25 10:19 114 H 97 04/23/25 10:14 115 H 96 04/23/25 10:09 110 H 96 04/23/25 10:06 117 H 114/57 L 04/23/25 10:04 112 H 97 04/23/25 10:00 109 H 131/80 04/23/25 09:59 105 H 95 04/23/25 09:55 100 H 137/85 04/23/25 09:54 104 H 95 04/23/25 09:50 93 H 143/84 H 04/23/25 09:49 96 H 95 04/23/25 09:44 111 H 95 04/23/25 09:42 95 H 153/99 H 04/23/25 09:39 95 H 96 04/23/25 09:34 98 H 97 04/23/25 09:29 95 H 96 04/23/25 09:27 102 H 151/94 H 04/23/25 09:24 98 H 95 04/23/25 09:19 100 H 97 04/23/25 09:14 104 H 96 04/23/25 09:12 88 142/85 H 04/23/25 09:09 88 96 04/23/25 09:04 87 96 04/23/25 08:59 93 H 96 04/23/25 08:57 93 H 137/80 04/23/25 08:54 106 H 96 04/23/25 08:51 93 H 136/84 04/23/25 08:49 106 H 96 04/23/25 08:44 100 H 96 04/23/25 08:39 96 H 94 04/23/25 08:34 94 H 95 04/23/25 08:29 93 H 95 04/23/25 08:24 96 H 95 04/23/25 08:19 117 H 95 04/23/25 08:14 100 H 94 04/23/25 08:12 99 H 135/74 04/23/25 08:10 18 04/23/25 08:09 96 H 95 04/23/25 08:04 101 H 95 04/23/25 07:59 100 H 94 04/23/25 07:57 100 H 133/71 04/23/25 07:54 103 H 95 04/23/25 07:49 105 H 95 04/23/25 07:44 114 H 95 04/23/25 07:42 104 H 132/72 04/23/25 07:39 104 H 95 04/23/25 07:34 116 H 95 04/23/25 07:29 112 H 97 04/23/25 07:28 18 04/23/25 07:28 36.7 C 18 04/23/25 07:27 110 H 129/75 04/23/25 07:24 110 H 96 04/23/25 07:19 123 H 96 04/23/25 07:14 103 H 95 04/23/25 07:13 108 H 134/67 04/23/25 07:10 18 04/23/25 07:09 115 H 95 04/23/25 07:04 114 H 95 04/23/25 06:59 114 H 97 04/23/25 06:57 113 H 127/67 04/23/25 06:54 114 H 97 04/23/25 06:49 115 H 97 04/23/25 06:43 109 H 97 04/23/25 06:42 114 H 129/70 04/23/25 06:38 126 H 98 04/23/25 06:33 113 H 96 04/23/25 06:28 115 H 97 04/23/25 06:27 107 H 133/74 04/23/25 06:23 104 H 97 04/23/25 06:18 101 H 96 04/23/25 06:13 100 H 96 04/23/25 06:12 100 H 115/62 04/23/25 06:08 100 H 95 04/23/25 06:03 97 H 95 04/23/25 05:58 96 H 96 04/23/25 05:57 102 H 124/71 04/23/25 05:53 104 H 96 04/23/25 05:48 109 H 97 04/23/25 05:43 101 H 97 04/23/25 05:42 98 H 119/65 04/23/25 05:38 98 H 96 04/23/25 05:33 125 H 98 04/23/25 05:28 98 H 95 04/23/25 05:27 96 H 113/56 L 04/23/25 05:23 94 H 95 04/23/25 05:18 96 H 95 04/23/25 05:13 97 H 95 04/23/25 05:12 100 H 115/60 04/23/25 05:08 98 H 95 04/23/25 05:03 96 H 95 04/23/25 04:58 102 H 95 04/23/25 04:56 107 H 116/60 04/23/25 04:55 95 H 90 04/23/25 04:53 101 H 94 04/23/25 04:48 97 H 94 04/23/25 04:43 96 H 95 04/23/25 04:42 36.1 C L 18 04/23/25 04:41 96 H 110/55 L 04/23/25 04:38 94 H 94 04/23/25 04:33 98 H 95 04/23/25 04:28 95 H 95 04/23/25 04:27 93 H 117/63 04/23/25 04:23 92 H 95 04/23/25 04:18 92 H 96 04/23/25 04:15 18 04/23/25 04:13 98 H 96 04/23/25 04:12 90 114/64 04/23/25 04:08 91 H 95 04/23/25 04:03 89 95 04/23/25 04:00 16 04/23/25 04:00 16 04/23/25 03:58 98 H 96 04/23/25 03:57 86 139/73 04/23/25 03:53 92 H 95 04/23/25 03:48 93 H 96 04/23/25 03:43 92 H 96 04/23/25 03:42 90 132/77 04/23/25 03:38 90 96 04/23/25 03:33 92 H 96 04/23/25 03:28 93 H 96 04/23/25 03:27 85 137/85 04/23/25 03:23 89 96 04/23/25 03:18 87 97 04/23/25 03:13 86 97 04/23/25 03:12 86 137/84 04/23/25 03:08 100 H 98 04/23/25 03:03 92 H 97 04/23/25 03:00 18 04/23/25 02:58 95 H 98 04/23/25 02:57 88 128/67 04/23/25 02:53 96 H 98 04/23/25 02:48 102 H 98 04/23/25 02:43 89 97 04/23/25 02:42 90 127/68 04/23/25 02:39 109 H 92 04/23/25 02:38 104 H 96 04/23/25 02:33 85 98 04/23/25 02:28 94 H 98 04/23/25 02:27 94 H 129/73 04/23/25 02:24 36.6 C 04/23/25 02:23 94 H 95 04/23/25 02:21 110 H 94 04/23/25 02:18 88 97 04/23/25 02:13 101 H 98 04/23/25 02:12 91 H 112/59 L 04/23/25 02:08 108 H 97 04/23/25 02:03 96 H 98 04/23/25 02:00 18 04/23/25 01:58 102 H 97 04/23/25 01:57 107 H 138/69 04/23/25 01:53 107 H 98 04/23/25 01:48 133 H 95 04/23/25 01:45 18 04/23/25 01:43 105 H 97 04/23/25 01:41 110 H 145/68 H 04/23/25 01:40 18 04/23/25 01:39 104 H 140/64 04/23/25 01:38 105 H 97 04/23/25 01:37 105 H 145/66 H 04/23/25 01:35 18 04/23/25 01:35 109 H 147/68 H 04/23/25 01:33 97 04/23/25 01:33 101 H 04/23/25 01:33 100 H 161/74 H 04/23/25 01:31 104 H 162/78 H 04/23/25 01:30 18 04/23/25 01:28 102 H 97 04/23/25 01:23 102 H 98 04/23/25 01:18 97 04/23/25 01:18 102 H 04/23/25 01:18 100 H 164/99 H 04/23/25 01:13 100 H 97 04/23/25 01:08 100 H 96 04/23/25 01:06 100 H 88 L 04/23/25 01:03 100 H 97 04/23/25 01:00 18 04/23/25 00:58 96 H 98 04/23/25 00:53 105 H 97 04/23/25 00:52 100 H 93 04/23/25 00:51 100 H 155/96 H 04/23/25 00:48 97 H 96 04/23/25 00:46 97 H 159/78 H 04/23/25 00:43 98 H 96 04/23/25 00:41 93 H 155/72 H 04/23/25 00:38 98 H 96 04/23/25 00:36 99 H 152/67 H 04/23/25 00:35 106 H 92 04/23/25 00:33 100 H 96 04/23/25 00:32 107 H 191/81 H 04/23/25 00:30 36.6 C 04/23/25 00:28 97 H 95 04/23/25 00:26 99 H 160/83 H 04/23/25 00:23 96 H 97 04/23/25 00:22 97 H 176/84 H 04/23/25 00:20 94 H 165/88 H 04/23/25 00:18 100 H 96 04/23/25 00:17 96 H 167/125 H 04/23/25 00:13 93 H 98 04/23/25 00:11 96 H 157/90 H 04/23/25 00:08 96 H 97 04/23/25 00:06 96 H 177/84 H 04/23/25 00:03 93 H 97 04/23/25 00:01 96 H 174/79 H 04/23/25 00:00 18 04/22/25 23:58 98 04/22/25 23:58 95 H 04/22/25 23:58 169/79 H 04/22/25 23:55 100 H 04/22/25 23:55 172/80 H 04/22/25 23:49 93 H 04/22/25 23:49 176/84 H 04/22/25 23:33 102 H 04/22/25 23:33 173/91 H 04/22/25 23:17 100 H 04/22/25 23:17 179/87 H Coding Level of Care Code None Diagnoses Preeclampsia O14.90 High risk medication use Z79.899
--- NOTE | 2025-04-23 13:10 | Labor Progress Brief Note ---
Date of Service April 23, 2025 Subjective patient uncomfortable again, notes baby coming Assessment & Plan (1) Preeclampsia: Plan Will redose epidural aain. making progress. fetus category two , min variability from mag, on exam, very firm on cervix. Will continue to monitor very closely. BPS have been good Admission and Anticipated Discharge Date Admission Date: April 22, 2025 Physical Exam Physical Exam: cx--7//-2 toco--q2-3min, pit at 12 efm--140s with min to mod variability, was having early with contractions and now variables with contractions. Results & Data Vital Signs (Past 12 Hours) Vital Signs Temp Pulse Resp BP Pulse Ox 04/23/25 13:04 118 H 92 04/23/25 13:01 107 H 87 L 04/23/25 12:59 111 H 92 04/23/25 12:54 113 H 96 04/23/25 12:53 91 04/23/25 12:53 112 H 04/23/25 12:53 113 H 139/92 04/23/25 12:49 108 H 93 04/23/25 12:44 108 H 98 04/23/25 12:39 106 H 95 04/23/25 12:37 108 H 144/70 H 04/23/25 12:34 129 H 98 04/23/25 12:29 122 H 99 04/23/25 12:24 109 H 96 04/23/25 12:22 107 H 157/91 H 04/23/25 12:20 18 04/23/25 12:20 36.5 C 18 04/23/25 12:19 106 H 98 04/23/25 12:14 107 H 97 04/23/25 12:09 106 H 95 04/23/25 12:06 106 H 124/72 04/23/25 12:04 115 H 98 04/23/25 11:59 108 H 96 04/23/25 11:54 109 H 96 04/23/25 11:51 108 H 121/65 04/23/25 11:49 115 H 97 04/23/25 11:44 118 H 96 04/23/25 11:39 117 H 96 04/23/25 11:37 107 H 116/64 04/23/25 11:34 110 H 98 04/23/25 11:29 125 H 96 04/23/25 11:24 97 H 95 04/23/25 11:21 100 H 127/74 04/23/25 11:19 97 H 95 04/23/25 11:14 108 H 98 04/23/25 11:09 102 H 96 04/23/25 11:08 102 H 131/74 04/23/25 11:04 105 H 96 04/23/25 10:59 112 H 97 04/23/25 10:54 110 H 97 04/23/25 10:52 111 H 131/68 04/23/25 10:49 113 H 96 04/23/25 10:44 110 H 96 04/23/25 10:39 116 H 94 04/23/25 10:37 114 H 111/55 L 04/23/25 10:34 114 H 97 04/23/25 10:29 115 H 96 04/23/25 10:24 118 H 97 04/23/25 10:23 129 H 139/58 L 04/23/25 10:19 114 H 97 04/23/25 10:14 115 H 96 04/23/25 10:09 110 H 96 04/23/25 10:06 117 H 114/57 L 04/23/25 10:04 112 H 97 04/23/25 10:00 109 H 131/80 04/23/25 09:59 105 H 95 04/23/25 09:55 100 H 137/85 04/23/25 09:54 104 H 95 04/23/25 09:50 93 H 143/84 H 04/23/25 09:49 96 H 95 04/23/25 09:44 111 H 95 04/23/25 09:42 95 H 153/99 H 04/23/25 09:39 95 H 96 04/23/25 09:34 98 H 97 04/23/25 09:30 36.7 C 04/23/25 09:29 95 H 96 04/23/25 09:27 102 H 151/94 H 04/23/25 09:24 98 H 95 04/23/25 09:19 100 H 97 04/23/25 09:14 104 H 96 04/23/25 09:12 88 142/85 H 04/23/25 09:09 88 96 04/23/25 09:04 87 96 04/23/25 08:59 93 H 96 04/23/25 08:57 93 H 137/80 04/23/25 08:54 106 H 96 04/23/25 08:51 93 H 136/84 04/23/25 08:49 106 H 96 04/23/25 08:44 100 H 96 04/23/25 08:39 96 H 94 04/23/25 08:34 94 H 95 04/23/25 08:29 93 H 95 04/23/25 08:24 96 H 95 04/23/25 08:19 117 H 95 04/23/25 08:14 100 H 94 04/23/25 08:12 99 H 135/74 04/23/25 08:10 18 04/23/25 08:09 96 H 95 04/23/25 08:04 101 H 95 04/23/25 07:59 100 H 94 04/23/25 07:57 100 H 133/71 04/23/25 07:54 103 H 95 04/23/25 07:49 105 H 95 04/23/25 07:44 114 H 95 04/23/25 07:42 104 H 132/72 04/23/25 07:39 104 H 95 04/23/25 07:34 116 H 95 04/23/25 07:29 112 H 97 04/23/25 07:28 18 04/23/25 07:28 36.7 C 18 04/23/25 07:27 110 H 129/75 04/23/25 07:24 110 H 96 04/23/25 07:19 123 H 96 04/23/25 07:14 103 H 95 04/23/25 07:13 108 H 134/67 04/23/25 07:10 18 04/23/25 07:09 115 H 95 04/23/25 07:04 114 H 95 04/23/25 06:59 114 H 97 04/23/25 06:57 113 H 127/67 04/23/25 06:54 114 H 97 04/23/25 06:49 115 H 97 04/23/25 06:43 109 H 97 04/23/25 06:42 114 H 129/70 04/23/25 06:38 126 H 98 04/23/25 06:33 113 H 96 04/23/25 06:28 115 H 97 04/23/25 06:27 107 H 133/74 04/23/25 06:23 104 H 97 04/23/25 06:18 101 H 96 04/23/25 06:13 100 H 96 04/23/25 06:12 100 H 115/62 04/23/25 06:08 100 H 95 04/23/25 06:03 97 H 95 04/23/25 05:58 96 H 96 04/23/25 05:57 102 H 124/71 04/23/25 05:53 104 H 96 04/23/25 05:48 109 H 97 04/23/25 05:43 101 H 97 04/23/25 05:42 98 H 119/65 04/23/25 05:38 98 H 96 04/23/25 05:33 125 H 98 04/23/25 05:28 98 H 95 04/23/25 05:27 96 H 113/56 L 04/23/25 05:23 94 H 95 04/23/25 05:18 96 H 95 04/23/25 05:13 97 H 95 04/23/25 05:12 100 H 115/60 04/23/25 05:08 98 H 95 04/23/25 05:03 96 H 95 04/23/25 04:58 102 H 95 04/23/25 04:56 107 H 116/60 04/23/25 04:55 95 H 90 04/23/25 04:53 101 H 94 04/23/25 04:48 97 H 94 04/23/25 04:43 96 H 95 04/23/25 04:42 36.1 C L 18 04/23/25 04:41 96 H 110/55 L 04/23/25 04:38 94 H 94 04/23/25 04:33 98 H 95 04/23/25 04:28 95 H 95 04/23/25 04:27 93 H 117/63 04/23/25 04:23 92 H 95 04/23/25 04:18 92 H 96 04/23/25 04:15 18 04/23/25 04:13 98 H 96 04/23/25 04:12 90 114/64 04/23/25 04:08 91 H 95 04/23/25 04:03 89 95 04/23/25 04:00 16 04/23/25 04:00 16 04/23/25 03:58 98 H 96 04/23/25 03:57 86 139/73 04/23/25 03:53 92 H 95 04/23/25 03:48 93 H 96 04/23/25 03:43 92 H 96 04/23/25 03:42 90 132/77 04/23/25 03:38 90 96 04/23/25 03:33 92 H 96 04/23/25 03:28 93 H 96 04/23/25 03:27 85 137/85 04/23/25 03:23 89 96 04/23/25 03:18 87 97 04/23/25 03:13 86 97 04/23/25 03:12 86 137/84 04/23/25 03:08 100 H 98 04/23/25 03:03 92 H 97 04/23/25 03:00 18 04/23/25 02:58 95 H 98 04/23/25 02:57 88 128/67 04/23/25 02:53 96 H 98 04/23/25 02:48 102 H 98 04/23/25 02:43 89 97 04/23/25 02:42 90 127/68 04/23/25 02:39 109 H 92 04/23/25 02:38 104 H 96 04/23/25 02:33 85 98 04/23/25 02:28 94 H 98 04/23/25 02:27 94 H 129/73 04/23/25 02:24 36.6 C 04/23/25 02:23 94 H 95 04/23/25 02:21 110 H 94 04/23/25 02:18 88 97 04/23/25 02:13 101 H 98 04/23/25 02:12 91 H 112/59 L 04/23/25 02:08 108 H 97 04/23/25 02:03 96 H 98 04/23/25 02:00 18 04/23/25 01:58 102 H 97 04/23/25 01:57 107 H 138/69 04/23/25 01:53 107 H 98 04/23/25 01:48 133 H 95 04/23/25 01:45 18 04/23/25 01:43 105 H 97 04/23/25 01:41 110 H 145/68 H 04/23/25 01:40 18 04/23/25 01:39 104 H 140/64 04/23/25 01:38 105 H 97 04/23/25 01:37 105 H 145/66 H 04/23/25 01:35 18 04/23/25 01:35 109 H 147/68 H 04/23/25 01:33 97 04/23/25 01:33 101 H 04/23/25 01:33 100 H 161/74 H 04/23/25 01:31 104 H 162/78 H 04/23/25 01:30 18 04/23/25 01:28 102 H 97 04/23/25 01:23 102 H 98 04/23/25 01:18 97 04/23/25 01:18 102 H 04/23/25 01:18 100 H 164/99 H 04/23/25 01:13 100 H 97 04/23/25 01:08 100 H 96 Coding Level of Care Code None Diagnoses Preeclampsia O14.90
[2025-04-23] MEDS ORDERED: fentANYL 2 MCG/ML BUPIVacaine 0.125%-NSS 100ML BAG EPI PRN (13:17)
[2025-04-23] MEDS ORDERED: OXYTOCIN 30 UNITS/NSS 30 UNITS/500 ML BAG IV PRN (15:17)
[2025-04-23] MEDS ORDERED: HYDROCORTISONE ACETATE 25 MG SUPP PR PRN (15:17)
[2025-04-23] MEDS: DIPHTHER/TETAN/PERTUS Vaccine (Tdap, Adol/Adult) 0.5mL IM ONE (16:06)
[2025-04-23] MEDS: LABETALOL HCL 100 MG TAB PO SCH (16:13)
--- NOTE | 2025-04-23 16:15 | Anesthesia Procedure Note ---
Date of Service April 23, 2025 Anesthesia Post Epidural Note Vital Signs Vital Signs: Temp Pulse Resp BP Pulse Ox 36.5 C 129 H 18 160/102 H 94 04/23/25 12:20 04/23/25 16:09 04/23/25 15:00 04/23/25 16:01 04/23/25 16:09 Notes Mental Status: alert / awake / arousable Nausea / Vomiting: adequately controlled Pain: adequately controlled Airway Patency, RR, SpO2: stable & adequate BP & HR: stable & adequate Hydration State: stable & adequate Neuraxial Anesthesia: was administered and sensory block is resolving Anesthetic Complications: no major complications apparent and Pt Satisfied with anesthetic care Epidural: Removed without complications and With tip intact Notes: Called by RN as catheter had become dislodged and transparent dressing had rubbed off patient's back. The RN covered the catheter insertion site. Upon arrival to patient room she was in too much pain to roll to her side but was complete and +2 station. She pushed to delivery and catheter was subsequently removed, which was clearly dislodged from the epidural space. tip in tact.
--- NOTE | 2025-04-23 17:18 | Delivery Summary ---
Vaginal Delivery Summary Date of Service April 23, 2025 Vaginal Delivery Summary and 1st Degree LAC (right labial) Pre-operative Diagnosis: at 37 4/7 severe pet Post-operative Diagnosis: same Procedure: arom pitocin iol epidural fse/iupc right labial and second degree laceration and repair. QBL: 100cc Anesthesia: epidural Procedure: The patient progressed to c/c/+3. The patient pushed for three contractions to deliver a viable male infant in noemi position. The rest of the was then delivered without difficulty. The baby was vigorous. The nose and mouth were bulb suctioned and the was placed in the maternal abdomen for drying and attention. Cord was clamped and cut at one minute of life. Cord blood and segment obtained. Placenta delivered spontaneous, intact with a three vessel cord. Cervix/sulci/rectum were intact. A second degree perineal laceration and right labial laceration were repaired in the normal standard fashion. Hemostasis obtained with dilute pitocin and fundal massage. Apgars were 8/9. Mother and baby doing well at the end of the delivery. Patient will remain on Mag prophylaxis for 24 hours. [facility] [place] [facility] [place] Charge Delivery Type Details: and 1st Degree LAC (right labial)
[2025-04-23] MEDS: ASPIRIN 81 MG CHEW PO STA (19:10)
[2025-04-23] MEDS: DOCUSATE SODIUM 100 MG CAP PO SCH (20:48)
[2025-04-24] MEDS: LEVOTHYROXINE SODIUM 75 MCG TABLET PO SCH (05:16)
[2025-04-24] MEDS: lamoTRIgine 25 MG TAB PO SCH (05:16)
[2025-04-24] MEDS: OLANZapine 10 MG TAB PO SCH (05:17)
--- NOTE | 2025-04-24 05:24 | Obstetrical Progress Note ---
Date of Service April 24, 2025 Assessment & Plan (1) Severe preeclampsia: Plan Doing well on mag. good uop. bps ok. cont mag for 24 hours--off around 2:30 pm. Will give all other psych meds. Hold on antihypertensives for now. Day #:: 1 Subjective Ambulation: limited ambulation Voiding: arambula catheter in place Passing Gas:: No Diet Tolerance:: clear liquids Lochia:: Small Feeding Type:: breast feeding Patient resting. Notes mild weber but much better than after delivery. Tylenol helping. no other s/s of pet. Pressures have been 110-130/60-80 Physical Exam Constitutional WD/WN, vitals as above Cardiovascular Extremities: + edema (tr); no calf tenderness Gastrointestinal (Abdomen) soft, gravid, nt ff/nt at u Neurologic patellar DTR's 2+ bilat, sensation intact Psychiatric A+Ox3, euthymic affect Results & Data Vital Signs (Past 12 Hours) Vital Signs Temp Pulse Resp BP Pulse Ox 04/24/25 05:19 97 H 96 04/24/25 05:14 92 H 96 04/24/25 05:09 96 H 95 04/24/25 05:04 97 H 96 04/24/25 04:59 89 96 04/24/25 04:54 87 97 04/24/25 04:49 89 97 04/24/25 04:45 90 119/69 04/24/25 04:44 90 96 04/24/25 04:39 91 H 96 04/24/25 04:34 92 H 97 04/24/25 04:29 94 H 96 04/24/25 04:24 95 H 97 04/24/25 04:19 101 H 96 04/24/25 04:15 18 04/24/25 04:14 100 H 95 04/24/25 04:09 101 H 94 04/24/25 04:04 100 H 96 04/24/25 03:59 103 H 96 04/24/25 03:54 104 H 97 04/24/25 03:49 103 H 96 04/24/25 03:45 96 H 125/74 04/24/25 03:44 98 H 96 04/24/25 03:39 96 H 95 04/24/25 03:34 101 H 95 04/24/25 03:29 90 95 04/24/25 03:24 90 94 04/24/25 03:19 93 H 95 04/24/25 03:15 18 04/24/25 03:14 92 H 95 04/24/25 03:09 93 H 96 04/24/25 03:04 93 H 94 04/24/25 02:59 96 H 95 04/24/25 02:54 97 H 94 04/24/25 02:49 100 H 93 04/24/25 02:45 97 H 113/62 04/24/25 02:44 99 H 96 04/24/25 02:39 98 H 96 04/24/25 02:34 100 H 94 04/24/25 02:30 16 04/24/25 02:29 103 H 95 04/24/25 02:26 112 H 90 04/24/25 02:24 94 H 96 04/24/25 02:19 93 H 96 04/24/25 02:14 93 H 96 04/24/25 02:09 97 H 97 04/24/25 02:04 92 H 96 04/24/25 01:59 95 H 97 04/24/25 01:54 98 H 96 04/24/25 01:49 97 H 97 04/24/25 01:44 101 H 95 04/24/25 01:39 96 H 97 04/24/25 01:34 98 H 97 04/24/25 01:29 100 H 96 04/24/25 01:24 100 H 96 04/24/25 01:19 98 H 96 04/24/25 01:15 18 04/24/25 01:14 100 H 96 04/24/25 01:09 101 H 97 04/24/25 01:04 99 H 95 04/24/25 00:59 99 H 97 04/24/25 00:54 102 H 96 04/24/25 00:49 101 H 95 04/24/25 00:46 98 H 121/68 04/24/25 00:44 99 H 96 04/24/25 00:39 103 H 96 04/24/25 00:34 101 H 96 04/24/25 00:29 101 H 96 04/24/25 00:24 101 H 97 04/24/25 00:19 99 H 95 04/24/25 00:15 18 04/24/25 00:14 104 H 96 04/24/25 00:09 99 H 96 04/24/25 00:04 99 H 96 04/23/25 23:59 97 H 96 04/23/25 23:54 96 H 96 04/23/25 23:49 101 H 95 04/23/25 23:47 109 H 124/93 04/23/25 23:44 91 H 96 04/23/25 23:39 94 H 95 04/23/25 23:38 90 91 04/23/25 23:34 93 H 96 04/23/25 23:32 93 H 90 04/23/25 23:29 93 H 93 04/23/25 23:24 91 H 95 04/23/25 23:19 90 95 04/23/25 23:15 36.6 C 18 04/23/25 23:15 18 04/23/25 23:14 93 H 95 04/23/25 23:09 93 H 95 04/23/25 23:04 92 H 95 04/23/25 22:59 93 H 95 04/23/25 22:54 92 H 95 04/23/25 22:49 94 H 95 04/23/25 22:46 94 H 125/73 04/23/25 22:44 94 H 96 04/23/25 22:39 93 H 95 04/23/25 22:34 94 H 95 04/23/25 22:29 94 H 96 04/23/25 22:24 95 H 96 04/23/25 22:19 95 H 96 04/23/25 22:15 18 04/23/25 22:14 98 H 96 04/23/25 22:09 96 H 96 04/23/25 22:04 99 H 95 04/23/25 21:59 104 H 96 04/23/25 21:55 110 H 140/73 04/23/25 21:54 104 H 95 04/23/25 21:49 102 H 96 04/23/25 21:44 108 H 95 04/23/25 21:39 100 H 96 04/23/25 21:34 105 H 95 04/23/25 21:33 103 H 139/78 04/23/25 21:29 105 H 95 04/23/25 21:24 106 H 95 04/23/25 21:19 106 H 96 04/23/25 21:15 18 04/23/25 21:14 109 H 96 04/23/25 21:09 107 H 97 04/23/25 21:04 106 H 97 04/23/25 20:59 103 H 97 04/23/25 20:54 105 H 97 04/23/25 20:49 108 H 97 04/23/25 20:46 106 H 138/80 04/23/25 20:44 106 H 97 04/23/25 20:39 107 H 97 04/23/25 20:34 106 H 95 04/23/25 20:29 108 H 95 04/23/25 20:24 107 H 97 04/23/25 20:19 109 H 96 04/23/25 20:15 18 04/23/25 20:14 114 H 95 04/23/25 20:09 109 H 96 04/23/25 20:04 110 H 95 04/23/25 19:59 109 H 95 04/23/25 19:54 108 H 96 04/23/25 19:49 109 H 95 04/23/25 19:46 107 H 138/77 04/23/25 19:44 110 H 96 04/23/25 19:39 112 H 96 04/23/25 19:34 110 H 95 04/23/25 19:29 116 H 95 04/23/25 19:24 111 H 96 04/23/25 19:19 111 H 96 04/23/25 19:18 113 H 139/79 04/23/25 19:15 36.6 C 18 04/23/25 19:15 18 04/23/25 19:14 111 H 92 04/23/25 19:09 114 H 95 04/23/25 19:04 111 H 96 04/23/25 18:59 111 H 96 04/23/25 18:54 114 H 96 04/23/25 18:49 109 H 96 04/23/25 18:46 109 H 132/75 04/23/25 18:44 104 H 95 04/23/25 18:39 106 H 94 04/23/25 18:34 109 H 96 04/23/25 18:29 109 H 95 04/23/25 18:24 111 H 95 04/23/25 18:19 110 H 96 04/23/25 18:14 110 H 96 04/23/25 18:09 108 H 97 04/23/25 18:04 110 H 97 04/23/25 18:00 18 04/23/25 17:59 114 H 96 04/23/25 17:54 110 H 96 04/23/25 17:49 110 H 96 04/23/25 17:44 110 H 96 04/23/25 17:39 111 H 97 04/23/25 17:34 113 H 96 04/23/25 17:31 110 H 127/66 04/23/25 17:29 111 H 96 04/23/25 17:24 113 H 96
[2025-04-24 06:13] LABS: Hematocrit (blood only) 24.8 % (37.0-47.0); Hemoglobin 8.3 g/dl (12.0-16.0)
[2025-04-24] MEDS: PRENATAL VITAMIN 1 TAB PO SCH (08:18)
[2025-04-24] MEDS ORDERED: lamoTRIgine 25 MG TAB PO SCH ×2 (09:00)
[2025-04-24] MEDS: BENZOCAINE 20% SPRY 85 APPLN/85 GM CAN EXT PRN (10:14)
[2025-04-24] MEDS: LABETALOL HCL 100 MG TAB PO ONE (15:49)
[2025-04-24] MEDS: IBUPROFEN 600 MG TAB PO PRN (17:58)
[2025-04-24 22:34] VITALS: O2SAT 97
--- NOTE | 2025-04-25 08:20 | Obstetrical Progress Note ---
Date of Service April 25, 2025 Assessment & Plan (1) care and examination: Plan: 35yo post- day 2 s/p Fells well today Continue post- care Encourage ambulation and and bottle feeding Pain controlled with Ibuprofen, Tylenol Vital Signs and Hgb stable Hopeful discharge home today after psychiatry consult, follow up with OB provider next week for BP check Admission and Anticipated Discharge Date Admission Date: April 22, 2025 Supervising Physician Co-Signing Physician Notes Resident Physician Supervision Note: I was present with Dr. Dong during the history and exam. I discussed the case with the resident and agree with the findings and plan as documented in the note. Any exceptions or clarifications are listed here: [None] Documented By: Jalil Mercer MD, FACOG Subjective 35yo post- day 2 s/p Ambulation: Ambulating normally Voiding: No voiding problems Passing Gas:: Yes Diet Tolerance:: regular diet Lochia:: Small Feeding Type:: breast and bottle feeding Current Pain Level: 0/10 controlled with Tylenol, Ibuprofen Resting comfortably this AM in NAD. Denies fever, chills, RUFF, vision changes, RUQ pain, CP, SOB, N/V/D, LE pain/swelling. Physical Exam Physical Exam: General: patient resting comfortably, NAD, non-toxic in appearance, answers questions appropriately Skin: warm, dry, intact Heart: S1/S2 heard, regular, no m/r/g Lungs: equal air entry bilaterally, no rales/rhonchi/wheezes Abd: Normoactive BS, soft, NT/ND, uterine fundus firm below umbilicus Ext: warm, no clubbing/cyanosis, 1+ edema Neuro: nonfocal, patient AAOx4, speech intact, no facial droop, moving all extremities on command Results & Data Vital Signs (Past 12 Hours) Vital Signs Temp Pulse Resp BP Pulse Ox O2 Del Method 04/24/25 22:33 36.4 C L 100 H 20 119/83 97 Room Air Resident Activity Tracking Resident Involvement: Resident Care Provided Care Provided: OB Delivery
[2025-04-25 08:43] VITALS: BP 130/84; PULSE 102; RESP 18; TEMP 98.1
--- NOTE | 2025-04-25 13:08 | Psychiatric Consultation ---
Date of Consultation April 25, 2025 Impression / Recommendations Impression Patricia Cueva is a 35-year-old female with a history of significant bipolar 1 disorder, admitted on 04/22/2025 for induction of labor. Consult is by the obstetrics service for medication recommendations . Pt is previously known to the psychiatric department from past consultations, and with past diagnoses of bipolar 1 disorder and borderline personality disorder, with a significant trauma history. She is admitted to the obstetrics floor, having just delivered her first child. Her was complicated with gestational hypertension that progressed to preeclampsia, as well as psychiatric destabilization in the setting of multiple medications mid-. During our encounter today, patient showed rational thought, good insight and judgment, and ability to advocate for herself appropriately. Her experience of psychiatric symptoms (mood cycling, with high anxiety and paranoia, as well as brief suicidal ideation) during was likely due to being started on an SSRI, with inadequate mood stabilization, and does support a diagnosis of bipolar 1. She showed insight and resilience by admitting herself to the hospital in February, and has remained psychiatrically stable since then. She is so far having no recurrence of mood, anxiety or psychotic symptoms so far in this period. She had a bright and full range affect, with no lability. In my assessment today, she remains psychiatrically stable. We were consulted for assistance in reconciling patient's psychiatric medications, since there were recent changes, and patient expressed desire to go back on Abilify. While I agree Abilify could be a good long-term medication for her, as it helped her achieve stabilization in the past. However, she is maintaining very well on Zyprexa without any side effects or complications so far. As such, I would advise she wait to make a major change of her mood stabilizer until she is well-established with her new outpatient psychiatric provider. It also may be ideal to wait until she is a little further along into , since hormonal changes early in can lead to destabilization as well, especially in women wit bipolar disorder. A another risk factor for mood destabilization in the period is sleep deprivation. Specifically with bipolar 1 disorder, sleep deprivation can lead to development of prashanth and subsequent crash into depression. I discussed this with the patient and encouraged maintaining some kind of predictable sleep schedule during the phase. We spoke with her and her partner about rocky ing overnight responsibilities. ideally, she can get a 6-hour stretch of sleep most nights, by sharing the overnight responsibilities with her partner. I also discussed with her the importance of not taking sedating medication at bedtime if she is going to be the one responsible for care overnight. Finally, I discussed with the patient expectations about medication management in , should she desire to get again in the future. While Zoloft is a preferred SSRI if needed in , SSRIs are not the primary treatment for bipolar 1 disorder, and carry risk of mood switching into prashanth. We also discussed that in general the second-generation antipsychotics are considered to be safe in without teratogenic effects. However, we have less evidence about Abilify specifically than we do about some of the other second-generation antipsychotics, such as Zyprexa, risperidone and Seroquel. I explained that the risks of medications in should always be discussed while also considering the risks of inadequate treatment of her bipolar disorder in . Choosing to go without medications to treat her mental health conditions carries significant risk as well. Risks include suicidality, Poor self-care and lack of appropriate follow-up. Untreated depression and anxiety in also increases risk of premature labor, low birthweight, and poor maternal bonding. (1) Bipolar disorder: (2) Borderline personality disorder: Plan Recommendations: - continue on Zyprexa 10 mg in the a.m., and 5 mg in the afternoon - Continue Lamictal 50 mg daily - continue hydroxyzine 25 mg, but only as needed for severe anxiety. Discontinue scheduled doses of hydroxyzine - Encouraged follow-up with intakes at [facility], as planned - patient can discuss appropriate timing of switching back to Abilify with her outpatient provider, once established - if patient were to become again, I would highly recommend a referral to a specialized psychiatrist, or maternal- medicine, given the complexity of her mental health history, and need for ongoing mood stabilizing medication throughout . All recommendations were discussed with the patient and her partner at bedside today. CPT Code Overall, I spent a total of 85 minutes on this patients care, including review of chart, direct evaluation of the patient, counseling the patient, coordination with nursing, and documentation. Psych History Identifying Data Patricia Cueva is a 35-year-old female with a history of significant bipolar 1 disorder, admitted on 04/22/2025 for induction of labor. Consult is by the obstetrics service for medication recommendations . Chief Complaint "I wanted to know if I could restart my Abilify". History of Present Illness Patricia Cueva is previously known to the psychiatric department from past consultations, and has past diagnoses of bipolar 1 disorder and borderline personality disorder, with a significant trauma history. She is admitted to the obstetrics floor, having just delivered her first child. Her was complicated with gestational hypertension this started in her second trimester, and progressed to preeclampsia at around 37 weeks. the induced labor on 04/22/2025 and she delivered vaginally. She was briefly on a magnesium drip during the delivery, but is off that now and blood pressures have been stable. she reports her son has had no complications, other than a slightly low weight. Patient's had further complications, which were psychiatric. Her outpatient provider, upon finding out patient was , discontinued Abilify, which had been crucial in patient's bipolar stabilization. It was replaced with Zoloft, and patient describes significant mood lability after Zoloft started. She also has significant headaches. The mood lability ranged from intense depression with suicidal ideation at times, to an agitated manic state, with very high anxiety that would sometimes venture into paranoia That something bad would happen. She did not make any attempts to harm herself. She did not at any time have any delusions involving her or her baby. She says that she tried advocating for herself repeatedly with her outpatient psychiatrist, reporting adverse effects to the Zoloft, but the provider recommended no changes. Patient did ultimately self discontinue the Zoloft, and brought herself to the emergency room in February for treatment. She was admitted to [facility] behavioral health unit, and at that time they started her on Zyprexa. They also restarted Lamictal which she had previously been on, and added Vistaril as needed for the anxiety. She reports since then her mood is "been a lot more stable." She also reports anxiety has been minimal. States "third-trimester has been so much better than the 1st or 2nd." Today, she denies any symptoms of depression for weeks. Her who is present also states that she seems calm and happy. No anhedonia or irritability. Denies having any paranoia, delusions or hallucinations. Anxiety is minimal. And she's had no suicidal ideation since prior to her hospitalization in February. She was questioning whether to get back on Abilify, since she was very stable on it for some time leading up to her . She was also on Lamictal 200 mg along with the Abilify previously. Her, she does state that she feels very stable on Zyprexa as well. She is not planning to breast-feed. She feels she has been bonding well, and her partner/father of the baby has been very supportive. She says "he is teaching me everything, since I was stuck in bed for 2 days." Indeed, his support was notable during the encounter. Past Psychiatric History Current Psychiatric Diagnosis: Bipolar 1 disorder and borderline personality disorder Outpatient Services: Patient was being seen by a medication provider through [facility]. She is newly scheduled [facility] for both therapy and medication management. Those appointments are at the beginning of May. 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 Previous Psych Admissions: "About 3 dozen" per last consult note in 2022 History of Previous Suicide Attempt: Yes Describe Attempts in the Past: intentional overdose on tylenol + excedrin - possible pseudoattempt Past Medication Trials: Paxil, Zoloft, Prozac - gave significant AEs. Hx of Gabapentin, lithium, multiple anticonvulsants and antipsychotics. Reports she was previously stable on Abilify 20 mg plus Lamictal 200 mg. Now, recently on Zyprexa 15 mg and doing well. has previously had ECT and found it effective. Additional Notes: Pt does have a significant trauma history, which was not explored in detail today. However, she said it was triggered and heavy on her mind during the manic/anxious episodes during her . She showed good insight by asking for trauma therapy at her new outpatient practice. Allergies Allergy/AdvReac Type Severity Reaction Status Date / Time citalopram Allergy Severe Swollen Verified 04/22/25 10:07 tongue sertraline [From Zoloft] Allergy Mild Anxiety Verified 04/22/25 13:10 clonidine AdvReac Intermediate FELT LIKE Verified 04/22/25 10:07 HAVING A HEART ATTACK fluoxetine AdvReac Intermediate SEROTONIN Verified 04/22/25 10:07 SYNDROME Home Medications Medication Instructions Recorded Confirmed Type doxylamine succinate 25 mg tablet 25 mg PO Q6H PRN Anxiety 03/16/25 04/22/25 History (Unisom (doxylamine)) lamotrigine 25 mg tablet (Lamictal) 50 mg PO DAILY 03/16/25 04/22/25 History polyethylene glycol 3350 17 17 g PO DAILY PRN HERPES 03/16/25 04/22/25 History gram/dose oral powder (Miralax) ferrous gluconate 240 mg (27 mg 240 mg PO DAILY 03/27/25 04/22/25 History iron) tablet (Ferate) [id number] 3 fatty no.1 27 1 cap PO DAILY 03/30/25 04/22/25 History mg-1 mg-300 mg capsule olanzapine 5 mg tablet 5 mg PO DAILY PRN anxiety #30 tabs 03/30/25 04/22/25 Rx labetalol 100 mg tablet 100 mg PO BID #60 tabs 04/06/25 04/22/25 Rx hydroxyzine HCl 50 mg tablet 50 mg PO Q6H PRN anxiety #84 tabs 04/22/25 Rx levothyroxine 75 mcg tablet 75 mcg PO DAILY #30 tabs 04/22/25 Rx olanzapine 10 mg tablet 10 mg PO DAILY #21 tabs 04/22/25 Rx valacyclovir 500 mg tablet 500 mg PO BID 04/22/25 04/22/25 History (Valtrex) labetalol 100 mg tablet 100 mg PO BID #30 tabs 04/25/25 Rx Patient History Medical History Varicella Dysplasia of cervix, low grade (GELY 1) Borderline personality disorder Bipolar I disorder, most recent episode depressed, in partial remission Low grade squamous intraepith lesion on cytologic smear cervix (lgsil) Oculogyric crisis Migraine headache without aura Anemia Emotional lability Excessive daytime sleepiness HPV test positive Herpes labialis Vitamin D deficiency Anxiety Depression Closed fracture of phalanx of right fifth toe Overdose by ingestion Depression with suicidal ideation High risk HPV infection 11/25/14 Low grade squamous intraepithelial lesion (LGSIL) on Papanicolaou smear of cervix 11/25/14 History of molluscum contagiosum Fracture of radius History of herpes genitalis Vitamin deficiency Transaminitis History of suicidal ideation History of rhabdomyolysis Low grade squamous intraepithelial lesion (LGSIL) gely 1 2014 assisted prescription benzodiazepine use Hx of drug overdose Intentional Benzodiazepine History of pericarditis History of sinus tachycardia History of hypothyroidism History of hypokalemia Extrapyramidal symptom Suicidal ideation Serotonin syndrome Rhabdomyolysis Festus toxicity Hepatitis Surgical History H/O colposcopy with cervical biopsy 02/17/15, 04/2020--neg, 05/2023--gely 1 H/O tooth extraction Status post wisdom tooth extraction Family History Mother Hypothyroidism Osteoporosis Grandmother (Maternal) Diabetes Father Unknown family medical history Grandfather (Paternal) Dyslipidemia Brother No problems noted. 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 Beliefs That Will Affect Care: None marital status: Single marital status details: tin Chaparro (31) [phone] Current Living Situation: Significant Other Current Living Situation Comment: boyfriend current occupational status: unemployed current occupation: [employer] How many Children do You have: 0 Feels Safe at Home: Yes Childhood Exposure to Second-Hand Smoke: No Diet: regular caffeine: Yes (hot tea) during the past year weight has: increased > 10 lbs Dental Care, Regularly: Yes Physical Activity Frequency: Daily Physical Activity Frequency Comment: house work Seatbelt Use: always Sunscreen Use: Yes Do you think of yourself as: straight/heterosexual Gender Identity: Female Assistive Devices: None Physical Exam Psychiatric: Orientation: alert, oriented x 3 and cooperative Apperance: appropriately dressed, appropriately groomed and appeared stated age Eye Contact: good eye contact Motor Behavior: steady gait and station and no abnormal motor movements Speech: normal rate/rhythm/volume of speech Af fect: euthymic affect full range "happy" Thought Process: goal directed thought process, linear/logical thought process and clear/coherent thought process Thought Content: reality based without delusions Suicidal Thoughts: denies suicidal thoughts, denies suicidal plan and denies suicidal intent Homicidal Thoughts: denies homicidal thoughts, denies homicidal plan and denies homicidal intent Hallucinations: no auditory hallucinations and no visual hallucinations Cognition: recent memory grossly intact, remote memory grossly intact, attention grossly intact an d language grossly intact Estimated Intelligence: average estimated intelligence and consistent with education level Insight: good insight Judgment: good judgement Vital Signs (Past 24 Hours): Last Vital Signs Temp 36.7 C 04/25/25 12:37 Pulse 102 H 04/25/25 12:37 Resp 18 04/25/25 12:37 BP 130/84 04/25/25 12:37 Pulse Ox 97 04/25/25 12:37 O2 Del Method Room Air 04/25/25 07:40 Results & Data (PSY) Medications Administered Acetaminophen (Acetaminophen 325 Mg Tab) 650 mg PO Q6H PRN PRN Reason: Pain/RUFF/Fever Stop: 05/23/25 15:16 Last Admin: 04/24/25 16:09 Dose: 650 mg Documented By: Admin: 04/24/25 10:16 Dose: 650 mg Documented By: Admin: 04/24/25 03:56 Dose: 650 mg Documented By: Admin: 04/23/25 21:54 Dose: 650 mg Documented By: KELLEN Benzocaine (Benzocaine 20% [place] 85 Appln/85 Gm Can) 1 appln EXT PRN PRN PRN Reason: Perineal Discomfort Stop: 05/23/25 15:16 Last Admin: 04/25/25 11:15 Dose: 85 appln Documented By: Admin: 04/24/25 10:14 Dose: 1 appln Documented By: MARIANN Docusate Sodium (Docusate Sodium 100 Mg Cap) 100 mg PO DAILY@08,21 EDWINA Stop: 05/23/25 20:59 Last Admin: 04/25/25 08:32 Dose: 100 mg Documented By: Admin: 04/25/25 00:54 Dose: Not Given Documented By: Admin: 04/24/25 08:18 Dose: 100 mg Documented By: [facility] Admin: 04/23/25 20:48 Dose: 100 mg Documented By: MTR Fluticasone Propionate (Fluticasone Propionate Na Spr 16 Gm Btl) 2 sprays NA DAILY PRN PRN Reason: ALLERGIES Stop: 05/23/25 07:29 Last Admin: 04/24/25 00:57 Dose: 2 sprays Documented By: Admin: 04/23/25 07:43 Dose: 2 sprays Documented By: JAS Hydroxyzine HCl (Hydroxyzine Hcl 25 Mg Tab) 50 mg PO DAILY@0530 EDWINA Stop: 05/24/25 05:29 Last Admin: 04/25/25 05:36 Dose: 50 mg Documented By: maia Admin: 04/24/25 05:21 Dose: Not Given Documented By: KELLEN Magnesium Sulfate (Magnesium Sulfate / Wtr) 40 gm in 1,000 mls @ 50 mls/hr IV .Q20H EDWINA Stop: 05/22/25 23:44 Last Admin: 04/24/25 16:08 Dose: Not Given Documented By: Infusion: 04/24/25 14:40 Dose: Infused Documented By: MARIANN Co-signed By: WAYNE Infusion: 04/24/25 08:24 Dose: 50 mls/hr Documented By: MARIANN Co-signed By: NADINE Admin: 04/23/25 19:07 Dose: 50 mls/hr Documented By: KELLEN Co-signed By: JAS Infusion: 04/23/25 18:35 Dose: Infused Documented By: KELLEN Co-signed By: JAS Infusion: 04/23/25 07:10 Dose: 50 mls/hr Documented By: JAS Co-signed By: DEEPA Infusion: 04/23/25 00:35 Dose: 50 mls/hr Documented By: DEEPA Co-signed By: JOE Admin: 04/23/25 00:05 Dose: 200 mls/hr Documented By: DEEPA Co-signed By: JOE Ibuprofen (Ibuprofen 600 Mg Tab) 600 mg PO Q4H PRN PRN Reason: Pain/RUFF/Cramping/Fever Stop: 05/23/25 15:16 Last Admin: 04/25/25 00:24 Dose: 600 mg Documented By: maia Admin: 04/24/25 17:58 Dose: 600 mg Documented By: MARIANN Labetalol HCl (Labetalol Hcl 100 Mg Tab) 100 mg PO BID EDWINA Stop: 05/23/25 15:55 Last Admin: 04/25/25 08:32 Dose: 100 mg Documented By: Admin: 04/24/25 20:44 Dose: 100 mg Documented By: maia Admin: 04/24/25 08:23 Dose: Not Given Documented By: Admin: 04/23/25 20:48 Dose: 100 mg Documented By: Admin: 04/23/25 16:13 Dose: 100 mg Documented By: JAS Lamotrigine (Lamotrigine 25 Mg Tab) 50 mg PO DAILY@0530 [facility]; Protocol Stop: 05/24/25 05:29 Last Admin: 04/25/25 05:38 Dose: 50 mg Documented By: maia Admin: 04/24/25 05:16 Dose: 50 mg Documented By: KELLEN Levothyroxine Sodium (Levothyroxine Sodium 75 Mcg Tablet) 75 mcg PO DAILY@0500 [facility] Stop: 05/24/25 04:59 Last Admin: 04/25/25 05:45 Dose: 75 mcg Documented By: maia Admin: 04/24/25 05:16 Dose: 75 mcg Documented By: KELLEN Olanzapine (Olanzapine 10 Mg Tab) 10 mg PO DAILY@0530 [facility] Stop: 05/24/25 05:29 Last Admin: 04/25/25 05:35 Dose: 10 mg Documented By: kyle Admin: 04/24/25 05:17 Dose: 10 mg Documented By: KELLEN Olanzapine (Olanzapine 5 Mg Tablet) 5 mg PO DAILY@1130 [facility] Stop: 05/24/25 11:29 Last Admin: 04/25/25 11:15 Dose: 5 mg Documented By: Admin: 04/24/25 11:34 Dose: 5 mg Documented By: Jeff Prenat Multivit/Blood Tester Fowl/Iron/Folic Ac ( Vitamin 1 Tab) 1 tab PO DAILY@08 [facility] Stop: 05/24/25 07:59 Last Admin: 04/25/25 08:32 Dose: 1 tab Documented By: Admin: 04/24/25 08:18 Dose: 1 tab Documented By: [facility] Valacyclovir HCl (Valacyclovir Hcl 500 Mg Tablet) 500 mg PO DAILY [facility] Stop: 05/24/25 13:29 Last Admin: 04/25/25 08:33 Dose: Not Given Documented By: Admin: 04/24/25 14:37 Dose: 500 mg Documented By: [facility] Coding Level of Care Code 01868 IN/OBS CONSULT LVL 5,80M Diagnoses Bipolar disorder F31.9 Borderline personality disorder F60.3
== END 2025-04-25 15:20 | disposition home or self-care (01) | DRG 807 ==
LOC: OPB 12:47 → 4S1 12:48 → 4E2 04-24 16:09